=== PATIENT | female | born 1940 | race Caucasian/White ===

== ENCOUNTER 2019-09-09 21:17 | Observation (INO) | payer MEDICARE, SELFPAY ==
[2019-09-09 21:24] VITALS: BP 192/97; PULSE 86; RESP 18; TEMP 36.4; O2SAT 95; BMI 37.8
--- NOTE | 2019-09-09 21:27 | ECG_ITS ---
Measurements Intervals [place] Rate: 84 P: 64 [place]: 310 QRS: -33 QRSD: 86 T: 55 QT: 382 QTc: 452 SINUS RHYTHM WITH FIRST DEGREE AV BLOCK PATTERN CONSISTENT WITH PULMONARY DISEASE INFERIOR MYOCARDIAL INFARCTION , PROBABLY OLD [40+ ms Q WAVE AND/OR ST/T AB ABNORMALITY IN II/aVF] Compared to ECG 06/25/2015 06:24:05 Incomplete right bundle-branch block no longer present Myocardial infarct finding still present Electronically Signed On 09-10-2019 18:02:18 CDT by Jefferson Justin M.D. [email or web address]
--- NOTE | 2019-09-09 21:27 | CTR_ITS ---
PROCEDURE INFORMATION: Exam: CT Head Without Contrast Exam date and time: 09/09/2019 9:46 PM Age: 79 years old Clinical indication: Pain; Dizziness; Headache; Patient HX: High BP; Additional info: Bell/ams TECHNIQUE: Imaging protocol: Computed tomography of the head without contrast. Total DLP: 189 mGy-cm Radiation optimization: All CT scans at this facility use at least one of these dose optimization techniques: automated exposure control; mA and/or kV adjustment per patient size (includes targeted exams where dose is matched to clinical indication); or iterative reconstruction. COMPARISON: No relevant prior studies available. FINDINGS: Brain: Normal. No hemorrhage. Unremarkable white matter. No mass effect. Ventricles: Normal. No ventriculomegaly. Bones/joints: Unremarkable. No acute fracture. Sinuses: Visualized sinuses are unremarkable. No fluid levels. Mastoid air cells: Visualized mastoid air cells are well aerated. Soft tissues: Unremarkable. CT/CT head wo con* [id number] IMPRESSION: No acute intracranial abnormality. Radiation Dose CTDIVOL = (mGy): DLP = 189 (mGy-cm)
--- NOTE | 2019-09-09 21:27 | XR_ITS ---
WS: [id number] CHEST XRAY TECHNIQUE: Portable chest. CLINICAL INFORMATION: cough COMPARISON: June 25, 2015 FINDINGS: Heart: Cardiomegaly. Lungs: Moderate chronic emphysematous changes. No acute pulmonary infiltrates. No focal pneumonia. Bones: Osteopenia. Prior postoperative changes plate and screw fixation left humerus. XR/XR chest 1V portable [id number] IMPRESSION: Cardiomegaly. No acute pulmonary infiltrates.
--- NOTE | 2019-09-09 21:31 | ED_ITS ---
HPI - General Adult General: Chief complaint: Dizziness Stated complaint: HTN Time Seen by Provider: 09/09/19 21:22 History of Present Illness: HPI narrative: Mrs. Gupta is a nice 79-year-old female who comes in complaining of dizziness. She describes it as room spinning dizziness that has resolved. Shortly after this started she checked her blood pressure and found it to be 200/100. EMS was called and she was brought here. She states that she was slightly nauseated with this but denies any chest pain, shortness of breath or other complaints. The patient states that currently her dizziness is gone. She denies any other complaints or concerns at this time. Associated symptoms: Reports headache(s); Deny chest pain, confusion, diaphoresis, dyspnea, malaise, nausea, rash, palpitations, syncope or vomiting Review of Systems General: Reports: other (negative unless marked) Const: Denies: fever, chills, body aches, fatigue, malaise or diaphoresis Eyes: Denies: change in vision or blurry vision ENMT: Denies: throat pain, painful swallowing, hoarseness, ear pain, ear discharge, Change in hearing or nasal discharge Card: Denies: chest pain, palpitations, irregular heart rhythm, syncope, pre- syncope, shortness of breath on exertion or shortness of breath when lying down Resp: Denies: shortness of breath, productive cough, non-productive cough, wheezing, coughing up blood or chest congestion GI: Denies: abdominal pain, nausea, vomiting, vomiting blood, coffee grounds in vomit, diarrhea, constipation, cramping, blood in stool or black tarry stool : Denies: flank pain, painful urination, urinary frequency, urinary urgency, decreased urine ouput, urinary incontinence or blood in urine Musc: Denies: neck pain, back pain, extremity pain, extremity swelling, joint pain, joint swelling, joint warmth or joint stiffness Skin/Breast: Denies: rash, skin tenderness or yellow skin Neuro: Reports: headache, dizziness and vertigo; Denies: numbness in extremities, weakness in extremities, changes in sensation or confusion Endo: Denies: excessive thirst, tired all the time, cold intolerance, excessive sweating, flushing or hot flashes Cain/Lymph: Denies: easy bruising, easy bleeding, petechiae or enlarged lymph nodes All/Imm: Denies: hives, throat swelling, tongue swelling, facial swelling or acute wheezing PFSH ED PFSH: Medical History Diabetes mellitus Dyslipidemia Elbow fracture, left Hyperlipidemia Hypertension Type 2 diabetes mellitus Surgical History H/O lumpectomy H/O: hysterectomy Family History Denies family history of CAD (coronary artery disease) Clotting disorder Chronic kidney disease (CKD) Bleeding disorder Cancer Social History Smoking and tobacco status: never smoked Alcohol intake: never Substance/Drug Use: never Household members: family Housing: House Physical Exam Const: COMMON NORMALS: no apparent distress, oriented x3, no limitations, healthy appearing and well nourished EXAM LIMITATIONS: no altered mental status GENERAL APPEARANCE: cooperative, well kempt and well developed ORIENTATION/CONSCIOUSNESS: Yes awake HENMT: COMMON NORMALS: normocephalic, head/scalp atraumatic, hearing grossly normal bilaterally, external ears normal, EAC's normal, external nose normal and moist oral mucous membranes HEAD & SCALP: normal to inspection, normocephalic and atraumatic FACE & SINUS: normal facial exam and face symmetric NOSE: external nose normal and nares normal EXTERNAL EAR: Yes external ears normal EXTERNAL AUDITORY CANAL: EAC's normal MOUTH: oral and palatal mucosa normal and tongue normal Eye: COMMON NORMALS: PERRL, EOMs intact bilaterally, conjunctivae normal and no scleral icterus GENERAL EYE: normal appearance of both eyes and normal light reflex CONJUNCTIVA: Yes conjunctivae normal SCLERA: sclerae normal CORNEA: Yes corneas normal PUPIL: Yes PERRL DIRECT OPHTHALMOSCOPY: Yes normal light reflex Neck/C-Spine: COMMON NORMALS: full ROM, no lymphadenopathy, supple, no meningeal signs and no JVD GENERAL: Yes normal visual inspection and Yes trachea midline CERVICAL SPINE: Yes cervical ROM normal Chest: COMMONS NORMALS: inspection of chest normal and palpation of chest normal Resp: COMMON NORMALS: normal respiratory effort, no retractions, no use of accessory muscles and clear to auscultation bilaterally EFFORT & INSPECTION: Yes able to speak in complete sentences AUSCULTATION: clear to auscultation bilaterally Cardio: COMMON NORMALS: no JVD, regular rate, regular rhythm, S1 normal heart sound, S2 normal heart sound, no gallops, no clicks, no murmurs and no rub JUGULAR VENOUS DISTENTION: no JVD RATE: regular rate RHYTHM: regular rhythm HEART SOUNDS: S1 normal and S2 normal GI: COMMON NORMALS: soft to palpation, non-tender, no hepatosplenomegaly and no masses INSPECTION: Yes normal to inspection PALPATION: Yes soft and Yes no hepatosplenomegaly : COMMON NORMALS: Yes no CVA tenderness BLADDER/KIDNEY EXAM: Yes no CVA tenderness Back/Pelvis: COMMON NORMALS: no CVA tenderness, thoracic and lumbar spine normal to inspection, no thoracic nor lumbar tenderness and thoraco-lumbar ROM normal Extremity: COMMON NORMALS: normal to inspection, full ROM, normal capillary refill, no joint enlargement, no clubbing, cyanosis or edema and no calf tenderness Neuro: COMMON NORMALS: oriented x3, CN's II-XII intact bilaterally and moves all extremities MENINGEAL SIGNS: Yes no meningeal signs Psych: COMMON NORMALS: mental status grossly normal, thought process normal, cooperative, affect normal, speech normal and activity/motor behavior normal APPEARANCE: Yes well kempt SPEECH: Yes normal speech THOUGHT PROCESS: normal thought process Skin: COMMON NORMALS: no rashes or lesions noted, skin turgor normal, no jaundice, no petechiae and no mottling GENERAL SKIN EXAM: no rashes or lesions noted and turgor normal Course ED course: 21:45 -the patient was able to walk to the bathroom although with some ataxia. She has informed nursing her dizziness is back. Upon further history the patient states that she cannot be certain when her last known well time was sometime between 3 and 4 PM. She noticed the symptoms she believes tonight around 5:30 PM. Patient is outside the window to be a TPA candidate and it is uncertain whether this is vertigo or a cerebellar CVA. I will proceed with a stroke work-up and perform an NIH stroke scale. Vital Signs: Vital signs: Vital Signs Temperature 97.8 F 09/10/19 04:00 Pulse Rate 79 09/10/19 04:00 Respiratory Rate 18 09/10/19 04:00 Blood Pressure 150/76 09/10/19 04:00 Pulse Oximetry 92 09/10/19 04:00 MDM - General Adult MDM Narrative: Medical decision making narrative: Ms. Hope is a nice 79-year-old female who comes in with room spinning dizziness that is been present since sometime around 530. The patient is uncertain of her onset time. Patient's last known well time was between 3 and 4 PM earlier today. If this is a posterior circulation CVA she arrived outside the window. She is feeling gradually better on her own but she was given Antivert we will see if that helps. She has minimal if any nystagmus present on her exam. I reviewed the c ase with Dr. Mcclelland who agrees because she has an NIH of 2 this is posterior circulation she is not a candidate for intervention or CTA of the head and neck. I reviewed the case with Dr. Allison and he agrees to admit the patient for further risk stratification and evaluation. Lab Data: Attestation: I reviewed the patient's lab results. Labs: Lab Results 09/09/19 09/09/19 09/09/19 Range/Units 21:40 21:40 21:40 WBC 7.8 (4.0-10.0) 10^3/ uL RBC 5.13 (4.1-5.3) 10^6/u L Hgb 14.9 (11.5-15.3) g/dL Hct 45.2 (37.0-47.0) % MCV 88.1 (81-99) fL MCH 29.0 (28.0-34.0) pg MCHC 33.0 (30.0-36.0) g/dL RDW 12.3 (12.1-15.1) % Plt Count 207 (130-400) 10^3/c mm MPV 10.3 (7.4-10.4) fL Neut % (Auto) 53.0 % Lymph % (Auto) 24.4 % [place] % (Auto) 6.0 % Eos % (Auto) 15.0 % Baso % (Auto) 0.6 % Neut # (Auto) 4.1 (1.8-7.7) 10^3/u L Lymph # (Auto) 1.9 (0.8-4.8) 10^3/u L [place] # (Auto) 0.5 (0.2-0.9) 10^3/u L Eos # (Auto) 1.2 H (0.0-0.8) 10^3/u L Baso # (Auto) 0.1 (0.0-0.1) 10^3/u L Nucleated RBC % (a uto) 0 % Nucleated RBCs # 0.0 /100WBC PT (10.5-13.3) SECO NDS INR (0.8-1.2) APTT (23.9-36.7) SECO NDS Sodium 137 (136-145) mmol/L Potassium 4.3 (3.5-5.1) mmol/L Chloride 99 (98-107) mmol/L Carbon Dioxide 24 (22-29) mmol/L Anion Gap 18.3 (5-19) BUN 19 (8-23) mg/dL Creatinine 1.0 H (0.5-0.9) mg/dL Glucose 350 H (65-115) mg/dL Calculated Osmolal ity 294 (285-295) mOsm/k g Calcium 9.7 (8.5-10.5) mg/dL Total Bilirubin 0.4 (0.15-1.2) mg/dL AST 19 (0-32) U/L ALT 19 (0-33) U/L Alkaline Phosphata se 64 (35-105) IU/L Troponin T Baselin e 11 H (0-10) ng/mL Total Protein 7.0 (6.6-8.7) g/dL Albumin 4.1 (3.5-5.2) g/dL Globulin 2.9 (1.3-4.6) g/dL Urine Color (Yellow) Urine Appearance (CLEAR) Urine pH (5-7) Ur Specific Gravit y (1.005-1.030) Urine Protein (Negative) Urine Glucose (UA) (Normal) Urine Ketones (Negative) Urine Blood (Negative) Urine Nitrate (Negative) Urine Bilirubin (NEGATIVE) Urine Urobilinogen (Negative) mg/dL Ur Leukocyte Jahaira ase (Negative) Urine RBC (0-2) /hpf Urine WBC (0-5) /hpf Ur Squamous Epith Cells (0-5) Urine Bacteria (NONE) 09/09/19 09/09/19 Range/Units 21:40 21:54 WBC (4.0-10.0) 10^3/ uL RBC (4.1-5.3) 10^6/u L Hgb (11.5-15.3) g/dL Hct (37.0-47.0) % MCV (81-99) fL MCH (28.0-34.0) pg MCHC (30.0-36.0) g/dL RDW (12.1-15.1) % Plt Count (130-400) 10^3/c mm MPV (7.4-10.4) fL Neut % (Auto) % Lymph % (Auto) % [place] % (Auto) % Eos % (Auto) % Baso % (Auto) % Neut # (Auto) (1.8-7.7) 10^3/u L Lymph # (Auto) (0.8-4.8) 10^3/u L [place] # (Auto) (0.2-0.9) 10^3/u L Eos # (Auto) (0.0-0.8) 10^3/u L Baso # (Auto) (0.0-0.1) 10^3/u L Nucleated RBC % (a uto) % Nucleated RBCs # /100WBC PT 12.60 (10.5-13.3) SECO NDS INR 0.91 (0.8-1.2) APTT 26.1 (23.9-36.7) SECO NDS Sodium (136-145) mmol/L Potassium (3.5-5.1) mmol/L Chloride (98-107) mmol/L Carbon Dioxide (22-29) mmol/L Anion Gap (5-19) BUN (8-23) mg/dL Creatinine (0.5-0.9) mg/dL Glucose (65-115) mg/dL Calculated Osmolal ity (285-295) mOsm/k g Calcium (8.5-10.5) mg/dL Total Bilirubin (0.15-1.2) mg/dL AST (0-32) U/L ALT (0-33) U/L Alkaline Phosphata se (35-105) IU/L Troponin T Baselin e (0-10) ng/mL Total Protein (6.6-8.7) g/dL Albumin (3.5-5.2) g/dL Globulin (1.3-4.6) g/dL Urine Color Straw (Yellow) Urine Appearance Clear (CLEAR) Urine pH 7 (5-7) Ur Specific Gravit y 1.005 (1.005-1.030) Urine Protein Neg (Negative) Urine Glucose (UA) 4+ H (Normal) Urine Ketones Negative (Negative) Urine Blood Neg (Negative) Urine Nitrate Negative (Negative) Urine Bilirubin Neg (NEGATIVE) Urine Urobilinogen Norm (Negative) mg/dL Ur Leukocyte Jahaira ase Negative (Negative) Urine RBC None (0-2) /hpf Urine WBC None (0-5) /hpf Ur Squamous Epith Cells Rare (0-5) Urine Bacteria 2+ H (NONE) Imaging Data^: CT Head: Radiologist's impression: [place] [address] CT Scan Report Signed Patient: Caden Gupta Unit #: [id number] : 1940 Age/Sex: 79 / F ADM Date: 09/09/19 Loc: ER Room/Bed: Attending Dr: Ordering Provider/Ordering MD: Marli Luis DO Date of Service: 09/09/19 Procedure(s): CT head wo con* [id number] Accession Number(s): [id number] Report Number: [id number] PROCEDURE INFORMATION: Exam: CT Head Without Contrast Exam date and time: 09/09/2019 9:46 PM Age: 79 years old Clinical indication: Pain; Dizziness; Headache; Patient HX: High BP; Additional info: Bell/ams TECHNIQUE: Imaging protocol: Computed tomography of the head without contrast. Total DLP: 189 mGy-cm Radiation optimization: All CT scans at this facility use at least one of these dose optimization techniques: automated exposure control; mA and/or kV adjustment per patient size (includes targeted exams where dose is matched to clinical indication); or iterative reconstruction. COMPARISON: No relevant prior studies available. FINDINGS: Brain: Normal. No hemorrhage. Unremarkable white matter. No mass effect. Ventricles: Normal. No ventriculomegaly. Bones/joints: Unremarkable. No acute fracture. Sinuses: Visualized sinuses are unremarkable. No fluid levels. Mastoid air cells: Visualized mastoid air cells are well aerated. Soft tissues: Unremarkable. CT/CT head wo con* [id number] IMPRESSION: No acute intracranial abnormality. Radiation Dose CTDIVOL = (mGy): DLP = 189 (mGy-cm) Dictated By: Luis Fernando Ortez MD Signed By: Luis Fernando Ortez MD Signed Date/Time: 09/09/192200 DD/ 99 CXR: My impression: Cardiomegaly, no other acute cardiopulmonary findings. EKG Data^: EKG 1: Attestation: I personally reviewed and interpreted this EKG as follows: EKG interpretation date: 09/09/19 EKG interpretation time: 22:36 Interpretation: Normal sinus rhythm at 84 beats a minute, first-degree AV block, anterior Q waves, left axis deviation, left anterior fascicular block. Computer generated interpretation: Head CT 09/09/19 21:27 IMPRESSION: No acute intracranial abnormality. Radiation Dose CTDIVOL = (mGy): DLP = 189 (mGy-cm) Discharge Plan Discharge Patient Disposition: Placed in Observation Admit Provider: Bethany Allison Clinical Impression: Cerebrovascular accident Qualifiers: CVA mechanism: unspecified Qualified Code(s): I63.9 - Cerebral infarction, unsp ecified Benign paroxysmal positional vertigo Qualifiers: Laterality: unspecified laterality Qualified Code(s): H81.10 - Benign paroxysmal vertigo, unspecified ear Condition: Stable Referrals: Luis Antonio Ko MD [Family Provider] - RiveraPark FNP [Primary Care Provider] - Discharge Date/Time: 09/09/19 23:53 Coding Level of Care Code ED Control Panel Operator Crude Unit for Chg Fwd Exam Comprehensive NIH stroke score NIHSS Level Of Consciousness - 1a: 0 Level Of Consciousness Questions - 1b: Both Correct Level Of Consciousness Commands - 1c: Both Correct Best Gaze - 2: Normal Visual Smith - 3: No Visual Loss Facial Palsy - 4: Normal Motor Arm Right - 5: No Drift Motor Arm Left - 5: No Drift Motor Leg Right - 6: No Drift Motor Leg Left - 6: Drift Limb Ataxia - 7: Absent Sensory - 8: Mild To Moderate Loss Best Language - 9: No Aphasia Dysarthia - 10: Normal Extinction And Inattention - 11: 0 Score Total Score: 2
[2019-09-09 21:47] LABS: Basophils # 0.1 10^3/uL (0.0-0.1); Basophils % 0.6 %; Eosinophils # 1.2 10^3/uL (0.0-0.8); Hematocrit 45.2 % (37.0-47.0); Hemoglobin 14.9 g/dL (11.5-15.3); Lymphocytes # 1.9 10^3/uL (0.8-4.8); Lymphocytes % 24.4 %; Mean Corpuscular Volume 88.1 fL (81-99); Mean Platelet Volume 10.3 fL (7.4-10.4); Monocytes # 0.5 10^3/uL (0.2-0.9); Neutrophils # 4.1 10^3/uL (1.8-7.7); Nucleated Red Blood Cells % 0 %; Platelet Count 207 10^3/cmm (130-400); Red Blood Count 5.13 10^6/uL (4.1-5.3); Red Cell Distribution Width 12.3 % (12.1-15.1); White Blood Count 7.8 10^3/uL (4.0-10.0)
[2019-09-09 22:04] LABS: Alanine Aminotransferase 19 U/L (0-33); Albumin Level 4.1 g/dL (3.5-5.2); Alkaline Phosphatase 64 IU/L (35-105); Anion Gap 18.3 (5-19); Aspartate Amino Transferase 19 U/L (0-32); Blood Urea Nitrogen 19 mg/dL (8-23); Calcium 9.7 mg/dL (8.5-10.5); Carbon Dioxide 24 mmol/L (22-29); Chloride 99 mmol/L (98-107); Globulin 2.9 g/dL (1.3-4.6); Glucose 350 mg/dL (65-115); Osmolality Calculated 294 mOsm/kg (285-295); Potassium 4.3 mmol/L (3.5-5.1); Sodium 137 mmol/L (136-145); Total Bilirubin 0.4 mg/dL (0.15-1.2)
[2019-09-09 22:06] LABS: Troponin(5th) Baseline 11 ng/mL (0-10)
[2019-09-09 22:08] LABS: INR 0.91 (0.8-1.2); Partial Thromboplastin Time 26.1 SECONDS (23.9-36.7)
[2019-09-09] MEDS: meclizine 25 mg tablet PO (22:14)
[2019-09-09] MEDS: labetalol 5 mg/mL SDV 20mL 10 MG IVP (22:15)
[2019-09-09 22:16] LABS: Bilirubin Urine Neg (NEGATIVE); Blood Urine Neg (Negative); Glucose Urine UA 4+ (Normal); Ketones Urine Negative (Negative); Nitrate Urine Negative (Negative); Protein Urine Neg (Negative); Specific Gravity, Urine 1.005 (1.005-1.030); Urine Appearance Clear (CLEAR); Urine Color Straw (Yellow); Urobilinogen Urine Norm (Negative); pH Urine 7 (5-7)
[2019-09-09 22:17] LABS: Bacteria Urine 2+; Leukocyte Esterase Urine Negative (Negative); Squamous Epithelial Cell Urine RARE (0-5)
[2019-09-09 22:18] LABS: Add Urine Culture? No
[2019-09-09] MEDS: aspirin 325 mg Tablet PO (22:51)
--- NOTE | 2019-09-09 23:24 | P.HP_ITS ---
Providers/Chief Complaint Primary Care Provider: TWIN Ramirez Chief Complaint: HTN History of Present Illness Caden Gupta is a 79 year old female who carries diagnosis of type 2 diabetes, hypertension came with chief complaint of feeling dizziness. Patient is stating that her symptoms started today around 5 PM when her daughter got dinner tray for her, as soon as she changed her position she started feeling dizzy, she was describing this dizziness as room was spinning which was making her uncomfortable, she did not experience vomiting but she was nauseous. She did not notice any fever, shortness of breath, chest pain, palpitations, numbness or weakness of upper or lower extremities, no facial droop was noticed, no falls or loss of consciousness. She has never experienced these kind of symptoms before. Any kind of head position change was making her symptoms worse. EMS was called, diagnostics in ER revealed normal CT head, code stroke was called NIH 2 for numbness in her extremity but patient is stating that she has neuropathy for which she is taking gabapentin, no need of TPA. She was hypertensive systolic blood pressure 190, patient is endorsing taking her medications today, hyperglycemia she is on oral anti-hyperglycemics. When I went to examine the patient, she was hypertensive systolic pressure 170, she was sitting in her bed, I did Alejandro-Hallpike maneuver which was positive on both sides, prominent horizontal nystagmus on left side, I have canceled CTA head and neck that was ordered, added meclizine, started her home regimen for antihypertensive At the time of my evaluation NIH score is 0 Review of Systems Const: Denies: fever, chills or body aches Eyes: Reports: other (Nystagmus positive) ENMT: Denies: throat pain or uvular edema Card: Denies: chest pain or palpitations Resp: Denies: shortness of breath or non-productive cough GI: Denies: abdominal pain, nausea or vomiting : Denies: flank pain Musc: Denies: neck pain or back pain Skin/Breast: Denies: rash or itching Neuro: Denies: headache or numbness in extremities Psych: Denies: anxiety or depression Endo: Denies: excessive urination Cain/Lymph: Denies: easy bruising All/Imm: Denies: hives or throat swelling Medications/Allergies Allergies Allergy/AdvReac Type Severity Reaction Status Date / Time No Known Allergies Allergy Verified 04/07/20 22:38 PFSH Acute PFSH: Medical History Diabetes mellitus Dyslipidemia Elbow fracture, left Hyperlipidemia Hypertension Type 2 diabetes mellitus Surgical History H/O lumpectomy H/O: hysterectomy Family History Denies family history of CAD (coronary artery disease) Clotting disorder Chronic kidney disease (CKD) Bleeding disorder Cancer Social History Smoking and tobacco status: never smoked Alcohol intake: never Substance/Drug Use: never Household members: family Housing: House Vitals/I&O/Wt Last Vital Signs Temp 97.6 F 09/09/19 21:24 Pulse 86 09/09/19 21:24 Resp 18 09/09/19 21:24 BP 192/97 09/09/19 21:24 Pulse Ox 95 09/09/19 21:24 Weight last 48 hrs Weight 99.79 kg Physical Exam Narrative: EXAM NARRATIVE: Very pleasant female Sitting in her bed NIH score 0 Alejandro-Hallpike maneuver positive bilaterally however more prominent on left with positive nystagmus Neurologically nonfocal exam S1, S2 no signs of heart failure Abdomen soft, distended, with obesity, bowel sounds sluggish Lungs are clear to auscultation EOMI, PERRLA Appropriate mood and affect No signs of ischemia gangrene ulcer of lower extremity Data : 09/09/19 21:40 09/09/19 21:40 A&P Assessment and plan (1) Benign paroxysmal positional vertigo: Status: Acute Qualifiers: Laterality: unspecified laterality Qualified Code(s): H81.10 - Benign paroxysmal vertigo, unspecified ear (2) Diabetes mellitus: Status: Acute (3) Hypertensive urgency: Status: Acute (4) Obesity: Status: Acute Additional A&P Information Dizziness secondary to BPPV Positive Alejandro-Hallpike maneuver, will give meclizine, physical therapy in the morning, no recent flulike symptoms or viral prodrome, less likely to be vestibulitis induced vertigo CT head negative, NIH score 0, EKG is pending, no chest pain troponin not significantly high Low risk for TIA or CVA Hypertensive urgency: I will resume her home regimen while holding hydrochlorothiazide as she is getting fluids Type 2 diabetes poorly controlled: Current blood sugar 350 We will check A1c level, moderate sliding scale Consistent carb diet Fluids for hyperglycemia Full code Consistent carb diet DVT prophylaxis: Lovenox Attestations Medical Necessity Statement*: Anticipating discharge in less than 48 hours, her dizziness is most likely due to BPPV, needs evaluation with carotid Doppler if negative she might benefit from vestibular rehab Time Spent in Patient Care: 40 Coding Level of Care Code Acute Flatwork Finisher for Chg Fwd Diagnoses Benign paroxysmal positional vertigo H81.10 Laterality: unspecified laterality Diabetes mellitus E11.9 Hypertensive urgency I16.0 Obesity E66.9
--- NOTE | 2019-09-09 23:27 | ECG_ITS ---
Measurements Intervals [place] Rate: 85 P: 60 [place]: 327 QRS: -35 QRSD: 99 T: 62 QT: 387 QTc: 462 SINUS RHYTHM WITH FIRST DEGREE AV BLOCK MARKED LEFT AXIS DEVIATION [QRS AXIS < -30] PATTERN CONSISTENT WITH PULMONARY DISEASE INFERIOR MYOCARDIAL INFARCTION [40+ ms Q WAVE AND/OR ST/T ABNORMALITY IN II/aVF], PROBABLY OLD Compared to ECG 06/25/2015 06:24:05 Left-axis deviation now present Incomplete right bundle-branch block no longer present Myocardial infarct finding still present Electronically Signed On 09-10-2019 18:11:04 CDT by Jefferson Justin M.D. [id number]
[2019-09-09 23:41] LABS: Troponin 5 2HR 11.79 ng/mL (0-10); Troponin 5 2HR Delta 0.79 ABS# (0-10)
[2019-09-09 23:51] VITALS: BP 165/84; PULSE 78; RESP 18; O2SAT 96
[2019-09-10 00:10] VITALS: BP 162/83; PULSE 81; RESP 18; TEMP 36.7; O2SAT 96
--- NOTE | 2019-09-10 00:10 | USCV_ITS ---
Caden Gupta Age: 79 Gender: F : 1940 Exam Date: 09/10/2019 06:44 Ordering Phys: Bethany Allison MD Technologist: Joann Bowser [place] [facility] [place] Risk Factors: Unknown Previous Vascular Surgery: None Right Brachial BP: / Left Brachial BP: / Right Left Velocity (cm/s) Spectral Plaque Velocity (cm/s) Spectral Plaque Syst/Diast Broadening Syst/Diast Broadening 108.10/18.70 Prox CCA 130.80/ 14.50 63.90/ 15.40 Mid CCA 56.20 / 9.90 57.50/ 11.70 Distal CCA 59.50 / 11.90 67.60/ 18.60 Prox ICA 50.30 / 16.60 Hetro 87.80/ 22.50 Mid ICA 48.90 / 14.40 80.80/ 23.30 Distal ICA 43.70 / 11.60 74.60 ECA 73.40 1.37 ICA/CCA 0.90 Antegrade Vertebral Antegrade 34.20/ 6.20 cm/s 35.70/ 7.10 cm/s Tri Subclavian Tri 111.8 163.4 0 0 CONCLUSIONS Right ICA stenosis <50%. Mild atheromatous plaque right carotid bulb/ICA. Left ICA stenosis <50%. Mild atheromatous plaque left carotid bulb/ICA. Normal antegrade Doppler flow noted in the right vertebral artery. Normal antegrade Doppler flow noted in the left vertebral artery. Bebeto Albrecht MD (Electronically Signed) Final Date: 11 September 2019 16:11 S
[2019-09-10] MEDS: lisinopril 10 mg Tablet PO ×2 (01:06→08:55)
[2019-09-10] MEDS: sodium chloride 0.9% 1,000 ML 30 ML IV (01:06)
--- NOTE | 2019-09-10 03:27 | ECG_ITS ---
Measurements Intervals [place] Rate: 81 P: 50 [place]: 319 QRS: -35 QRSD: 96 T: 60 QT: 398 QTc: 463 SINUS RHYTHM WITH FIRST DEGREE AV BLOCK INFERIOR MYOCARDIAL INFARCTION [40+ ms Q WAVE AND/OR ST/T ABNORMALITY IN II/aVF], PROBABLY OLD Compared to ECG 06/25/2015 06:24:05 Incomplete right bundle-branch block no longer present Myocardial infarct finding still present Electronically Signed On 09-10-2019 18:10:44 CDT by Jefferson Justin M.D. [email or web address]
[2019-09-10 04:00] VITALS: BP 150/76; PULSE 79; RESP 18; TEMP 36.6; O2SAT 92
[2019-09-10 04:10] LABS: Estmated Average Glucose 217; Hemoglobin A1C 9.2 % (4.0-6.0)
[2019-09-10 04:53] LABS: Basophils % 0.5 %; Eosinophils # 0.8 10^3/uL (0.0-0.8); Eosinophils % 11.6 %; Hematocrit 38.9 % (37.0-47.0); Hemoglobin 13.1 g/dL (11.5-15.3); Lymphocytes # 1.9 10^3/uL (0.8-4.8); Lymphocytes % 29.5 %; Mean Corpuscular HGB Conc 33.7 g/dL (30.0-36.0); Mean Corpuscular Hemoglobin 29.8 pg (28.0-34.0); Mean Corpuscular Volume 88.4 fL (81-99); Mean Platelet Volume 10.3 fL (7.4-10.4); Monocytes # 0.5 10^3/uL (0.2-0.9); Monocytes % 7.6 %; Neutrophils # 3.2 10^3/uL (1.8-7.7); Neutrophils % 49.9 %; Nucleated Red Blood Cells % 0 %; Platelet Count 180 10^3/cmm (130-400); Red Cell Distribution Width 12.3 % (12.1-15.1); White Blood Count 6.4 10^3/uL (4.0-10.0)
[2019-09-10 05:01] LABS: Anion Gap 17.4 (5-19); Blood Urea Nitrogen 19 mg/dL (8-23); Calcium 8.8 mg/dL (8.5-10.5); Carbon Dioxide 23 mmol/L (22-29); Chloride 100 mmol/L (98-107); Glucose 359 mg/dL (65-115); Osmolality Calculated 293 mOsm/kg (285-295); Potassium 4.4 mmol/L (3.5-5.1); Sodium 136 mmol/L (136-145)
[2019-09-10 06:34] LABS: Glucose Point of Care 281 mg/dL (70-110)
[2019-09-10 08:00] VITALS: BP 108/99; PULSE 79; RESP 17; TEMP 36.4; O2SAT 94
--- NOTE | 2019-09-10 08:20 | P.DS_ITS ---
Discharge Providers Date of Admission: 09/09/19 23:09 Date of Discharge: September 10, 2019 Attending Provider at Admission: Bethany Allison MD Attending Provider at Discharge: Zev Fields MD Primary Care Provider: TWIN Ramirez Diagnoses at Discharge Discharge Diagnosis (1) Benign paroxysmal positional vertigo: Status: Acute Qualifiers: Laterality: unspecified laterality Qualified Code(s): H81.10 - Benign paroxysmal vertigo, unspecified ear (2) Diabetes mellitus: Status: Acute (3) Hypertensive urgency: Status: Acute (4) Obesity: Status: Acute (5) Chronic constipation: Status: Acute Reason for Visit Reason for Visit: Reason For Visit: HTN Hospital Course Discharge Summary: Patient presented with lightheadedness and dizziness described as room spinning shortly after she ate. Her daughter is an RN and checked her blood pressure which was in 200s over 100s. She gave her 1 tablet of clonidine which she gives her rarely when she gets episodes of hypertension. She was brought to ER and on examination she felt to have benign positional vertigo. She was given meclizine and hospitalized for further monitoring and treatment and this morning patient reports feeling back to her normal baseline and wants to go home. Cerebrovascular accident felt unlikely. This morning patient shows no evidence of focal neurological findings. She has normal shoulder shrug and has no pronator drift. She has no evidence of ataxia of lower and upper extremities on [id number] and heel over yancey test. She has good peripheral vision bilaterally. She is eating breakfast this morning without any difficulty. This morning patient denies any shortness of breath or chest pain. She denies headache or nausea. I have discussed with the patient's daughter Herminia over the phone. Patient at times takes tramadol couple times a week and with severe pain mostly in her lower back and knees she takes hydrocodone maybe twice a month. She takes Tylenol PM every night. She uses cane to ambulate. She reports being chronically constipated but denies abdominal pain. Somewhere at the end of last year she was treated for UTI. She currently denies any dysuria but reports noticing lately frequent urinations. Reports waking up 6 7 times a night to urinate lately. Her urine shows 2+ bacteria and 4+ glucose but otherwise no WBCs. She had carotid artery ultrasound performed with report currently pending. Reports that she could not tolerate metformin by itself previously due to severe diarrhea. We will discontinue hydrochlorothiazide as patient is at risk for dehydration given glycosuria. Will start patient on 10 units of Lantus and request diabetic education prior to DC. We will continue rest of her hypoglycemic medications. We will add amlodipine for better blood pressure control and patient was told to keep blood pressure, heart rate and blood sugar log 3 times daily to present to primary care physician next visit for medication adjustment. Patient was told to drink plenty of fluids unless she develops lower extremity swelling and shortness of breath. This morning patient denies any shortness of breath or chest pain. Denies abdominal pain. Senna/Colace will be prescribed for chronic constipation and lactulose will be added to use as needed. Physical Exam Const: COMMON NORMALS: no apparent distress and oriented x3 Resp: COMMON NORMALS: normal respiratory effort and clear to auscultation bilaterally AUSCULTATION: clear to auscultation bilaterally Cardio: COMMON NORMALS: regular rate, regular rhythm and S2 normal heart sound RATE: regular rate RHYTHM: regular rhythm HEART SOUNDS: S2 normal OTHER: No lower extremity edema GI: COMMON NORMALS: normal to inspection, nondistended, normoactive bowel sounds, soft to palpation and non-tender PALPATION: Yes soft Neuro: COMMON NORMALS: oriented x3 and no focal motor deficits Discharge Data Data Completed and Pending: Completed Studies During Hospitalization Category Date Time Status CT head wo con* [id number] Urgent Cat Scan 09/09/19 21:27 Completed Pending at discharge Category Date Time Status XR chest 1V tamia ble [id number] Stat Exams 09/09/19 21:27 Taken CV carotid duplex BI* [id number] Routine Ultrasound 09/10/19 00:10 Taken Labs from last 24 hours 09/10/19 09/10/19 09/10/19 06:25 04:16 04:16 WBC 6.4 RBC 4.40 Hgb 13.1 Hct 38.9 MCV 88.4 MCH 29.8 MCHC 33.7 RDW 12.3 Plt Count 180 MPV 10.3 Neut % (Auto) 49.9 Lymph % (Auto) 29.5 [place] % (Auto) 7.6 Eos % (Auto) 11.6 Baso % (Auto) 0.5 Neut # (Auto) 3.2 Lymph # (Auto) 1.9 [place] # (Auto) 0.5 Eos # (Auto) 0.8 Baso # (Auto) 0.0 Nucleated RBC % (a uto) 0 Nucleated RBCs # 0.0 PT INR APTT Sodium 136 Potassium 4.4 Chloride 100 Carbon Dioxide 23 Anion Gap 17.4 BUN 19 Creatinine 1.0 H Glucose 359 H POC Glucose 281 Estimat Average Gl ucose Hemoglobin A1c Calculated Osmolal ity 293 Calcium 8.8 Total Bilirubin AST ALT Alkaline Phosphata se Troponin T Baselin e Troponin T 120 Min [place] Troponin T Total Protein Albumin Globulin Urine Color Urine Appearance Urine pH Ur Specific Gravit y Urine Protein Urine Glucose (UA) Urine Ketones Urine Blood Urine Nitrate Urine Bilirubin Urine Urobilinogen Ur Leukocyte Jahaira ase Urine RBC Urine WBC Ur Squamous Epith Cells Urine Bacteria 09/10/19 09/09/19 09/09/19 00:13 23:15 21:54 WBC RBC Hgb Hct MCV MCH MCHC RDW Plt Count MPV Neut % (Auto) Lymph % (Auto) [place] % (Auto) Eos % (Auto) Baso % (Auto) Neut # (Auto) Lymph # (Auto) [place] # (Auto) Eos # (Auto) Baso # (Auto) Nucleated RBC % (a uto) Nucleated RBCs # PT INR APTT Sodium Potassium Chloride Carbon Dioxide Anion Gap BUN Creatinine Glucose POC Glucose Estimat Average Gl ucose 217 Hemoglobin A1c 9.2 H Calculated Osmolal ity Calcium Total Bilirubin AST ALT Alkaline Phosphata se Troponin T Baselin e Troponin T 120 Min [place] 11.79 [place] Delta Troponin T 0.79 Total Protein Albumin Globulin Urine Color Straw Urine Appearance Clear Urine pH 7 Ur Specific Gravit y 1.005 Urine Protein Neg Urine Glucose (UA) 4+ H Urine Ketones Negative Urine Blood Neg Urine Nitrate Negative Urine Bilirubin Neg Urine Urobilinogen Norm Ur Leukocyte Jahaira ase Negative Urine RBC None Urine WBC None Ur Squamous Epith Cells Rare Urine Bacteria 2+ H 09/09/19 09/09/19 09/09/19 21:40 21:40 21:40 WBC RBC Hgb Hct MCV MCH MCHC RDW Plt Count MPV Neut % (Auto) Lymph % (Auto) [place] % (Auto) Eos % (Auto) Baso % (Auto) Neut # (Auto) Lymph # (Auto) [place] # (Auto) Eos # (Auto) Baso # (Auto) Nucleated RBC % (a uto) Nucleated RBCs # PT 12.60 INR 0.91 APTT 26.1 Sodium 137 Potassium 4.3 Chloride 99 Carbon Dioxide 24 Anion Gap 18.3 BUN 19 Creatinine 1.0 H Glucose 350 H POC Glucose Estimat Average Gl ucose Hemoglobin A1c Calculated Osmolal ity 294 Calcium 9.7 Total Bilirubin 0.4 AST 19 ALT 19 Alkaline Phosphata se 64 Troponin T Baselin e 11 H Troponin T 120 Min [place] Troponin T Total Protein 7.0 Albumin 4.1 Globulin 2.9 Urine Color Urine Appearance Urine pH Ur Specific Gravit y Urine Protein Urine Glucose (UA) Urine Ketones Urine Blood Urine Nitrate Urine Bilirubin Urine Urobilinogen Ur Leukocyte Jahaira ase Urine RBC Urine WBC Ur Squamous Epith Cells Urine Bacteria 09/09/19 21:40 WBC 7.8 RBC 5.13 Hgb 14.9 Hct 45.2 MCV 88.1 MCH 29.0 MCHC 33.0 RDW 12.3 Plt Count 207 MPV 10.3 Neut % (Auto) 53.0 Lymph % (Auto) 24.4 [place] % (Auto) 6.0 Eos % (Auto) 15.0 Baso % (Auto) 0.6 Neut # (Auto) 4.1 Lymph # (Auto) 1.9 [place] # (Auto) 0.5 Eos # (Auto) 1.2 H Baso # (Auto) 0.1 Nucleated RBC % (a uto) 0 Nucleated RBCs # 0.0 PT INR APTT Sodium Potassium Chloride Carbon Dioxide Anion Gap BUN Creatinine Glucose POC Glucose Estimat Average Gl ucose Hemoglobin A1c Calculated Osmolal ity Calcium Total Bilirubin AST ALT Alkaline Phosphata se Troponin T Baselin e Troponin T 120 Min [place] Troponin T Total Protein Albumin Globulin Urine Color Urine Appearance Urine pH Ur Specific Gravit y Urine Protein Urine Glucose (UA) Urine Ketones Urine Blood Urine Nitrate Urine Bilirubin Urine Urobilinogen Ur Leukocyte Jahaira ase Urine RBC Urine WBC Ur Squamous Epith Cells Urine Bacteria Vitals: Last Vital Signs Temp 97.8 F 09/10/19 04:00 Pulse 79 09/10/19 04:00 Resp 18 09/10/19 04:00 BP 150/76 09/10/19 04:00 Pulse Ox 92 09/10/19 04:00 Discharge Plan Discharge Patient Disposition: Home, Self-Care Condition: Stable Prescriptions: New Lantus Solostar U-100 Insulin 100 unit/mL (3 mL) insulin pen 10 unit SUBCUT DAILY Qty: 15 RF: 0 lactulose 10 gram/15 mL solution 10 gm PO DAILY PRN (Reason: constipation) Qty: 473 RF: 0 sennosides-docusate sodium [Senna-S] 8.6-50 mg tablet 1 tab-cap PO BID Qty: 60 RF: 0 amlodipine 5 mg tablet 5 mg PO DAILY Qty: 30 RF: 0 atorvastatin 10 mg tablet 10 mg PO DAILY Qty: 30 RF: 0 Continued glipizide 10 mg Tablet 10 mg PO TID RF: 0 Janumet 50-500 mg Tablet 1 tab PO BID RF: 0 lisinopril 20 mg Tablet 20 mg PO BID RF: 0 Aspirin Low Dose 81 mg Tablet,Delayed Release (Dr/Ec) 81 mg PO DAILY RF: 0 levothyroxine 50 mcg Tablet 50 mcg PO DAILY RF: 0 pantoprazole 40 mg Tablet,Delayed Release (Dr/Ec) 40 mg PO DAILY RF: 0 metoprolol tartrate 50 mg Tablet 50 mg PO BID RF: 0 gabapentin 100 mg Capsule 100 mg PO DAILY RF: 0 Vitamin D2 1,250 mcg (50,000 unit) Capsule 1,250 mcg PO DAILY RF: 0 Tylenol PM Extra Strength 25-500 mg Tablet 1 tab PO Q6H PRN (Reason: Pain) RF: 0 Changed tramadol 50 mg Tablet 50 - 100 mg PO DAILY PRN (Reason: Severe Pain (Scale Score 7-10)) Qty: 0 RF: 0 Discontinued hydrochlorothiazide 12.5 mg Tablet 12.5 mg PO DAILY RF: 0 Discharge Orders: Discharge Order (Routine); Ordered 09/10/19 Ordered By: eZv Fields Referrals: Luis Antonio Ko MD [Family Provider] - 4-7 days Rivera,TWIN Nick [Primary Care Provider] - None Discharge Diet: Diabetic Discharge Activity: Increase activity as tolerated Activity Restrictions/Additional Instructions: Please call your doctor or present to emergency department if your condition worsens or you develop diarrhea, lightheadedness, fatigue or see blood in your stool or black stool. Please keep blood sugar, blood pressure and heart rate log 3 times daily to present to primary care physician for medication adjustment. Please immediately check your blood sugar if you develop diaphoresis, nausea, li ghtheadedness, chest pain or shortness of breath as he may be at risk for low blood sugar. Discharge Attestations Time Spent in Discharge Care*: greater than 30 min Quality Metrics Clinical Quality Measures During this hospital stay, did patient experience: None Coding Level of Care Code Acute Director Client Services for Chg Fwd Exam Detailed Diagnoses Benign paroxysmal positional vertigo H81.10 Laterality: unspecified laterality Diabetes mellitus E11.9 Hypertensive urgency I16.0 Obesity E66.9 Chronic constipation K59.09
[2019-09-10] MEDS: pantoprazole DR 40 mg Tablet 20 MG PO (08:54)
[2019-09-10] MEDS: metoprolol tartrate 25 mg Tablet PO (08:55)
[2019-09-10] MEDS: aspirin 81 mg EC Tablet PO (08:55)
[2019-09-10] MEDS: gabapentin 100 mg Capsule PO (08:55)
[2019-09-10] MEDS: enoxaparin 40 mg/0.4 mL Syringe SUBCUT (08:56)
[2019-09-10] MEDS: levothyroxine 50 mcg Tablet PO (08:56)
[2019-09-10 10:11] VITALS: BP 108/99; PULSE 79; RESP 17; TEMP 36.4; O2SAT 94
--- NOTE | 2019-09-10 10:22 | PC.CHAP ---
Pastoral Care Encounter/Spiritual Assessment Type of Contact [] Declined rn oncology research visit [] Patient/Family/Request visit [] Outpatient visit [] Follow-up visit [] Physician referral [] Code/Alert [x] Routine visit [] Staff referral [] Actively dying [] Patient sleeping [] Family support [] [] Out of room [] Palliative care [] [] Receiving care in room [] Pre-surgical visit [] Trauma [] Long length of stay [] ICU visit [] Other: Relational/Emotional Strength [] Patient feels connected with others/family/visitors/staff [] Distress [] Loneliness/isolation [] Abandonment Spirituality of Patient [] Person of Winnie [] Attends Adventist of their Winnie [] Believes in Prayer [] Reads Bible or Caodaism materials [] There are Spiritual issues to be addressed Business Reporter Interventions [x] Prayer [] Active listening [] Non-anxious presence [] Spiritual/emotional support [] Crisis/trauma care [] Spiritual counseling [] Bereavement support [] Provided bereavement packet [] Provided Bible/devotional materials [] Provided toy/stuffed animal, coloring book to patient or family member [] Provided Communion [] Anointing/[place] [] Salvation [x] Completed spiritual assessment [] Other: Impact on Illness or Injury [] Angry [] Fearful [] Anxious [] Often cries [] Exhaustion [] Unable to work [] Unable to attend amish [] Unable to walk/stand [] Unable to read [] Unable to drive [] Unable to eat/drink [] Unable to sleep [] Unable to be with family [] Patient intubated [] Other: Summary Patient resting well. Time spent with patient 10 min
[2019-09-10 10:43] LABS: Glucose Point of Care 297 mg/dL (70-110)
[2019-09-10 12:57] VITALS: BP 108/99; PULSE 79; RESP 17; TEMP 36.4; O2SAT 94
== END 2019-09-10 11:50 | disposition home or self-care (01) ==
LOC: ER 22:58 → MEDSURG 23:47
PROVIDERS: Admitting Provider Internal Medicine; Emergency Provider Emergency Medicine; Family Provider Family Medicine; PCP Nurse Practitioner Family; Visit Provider Internal Medicine
DX: H81.10 Benign paroxysmal vertigo, unspecified ear (principal); E11.9 Type 2 diabetes mellitus without complications; I16.0 Hypertensive urgency; E66.9 Obesity, unspecified; Z68.37 Body mass index [BMI] 37.0-37.9, adult; K59.09 Other constipation; I44.0 Atrioventricular block, first degree; I65.23 Occlusion and stenosis of bilateral carotid arteries
CPT/HCPCS: 12345; 36415; 36416; 70450; 71045; 80048; 80053; 81001; 82962; 83036; 84484; 85025; 85610; 85730; 93005; 93880; 96372; 96374; 96375; 97161; 99282; 99285; G0378; J1650; J1815; J3490; J7030; J8597

== ENCOUNTER 2021-05-15 14:43 | Inpatient (IN) | payer MEDICARE, SELFPAY ==
--- NOTE | 2021-05-15 14:46 | CTR_ITS ---
PROCEDURE INFORMATION: Exam: CT Head Without Contrast Exam date and time: 05/15/2021 2:46 PM Age: 80 years old Clinical indication: Altered mental status/memory loss; Additional info: Eval brain bleed TECHNIQUE: Imaging protocol: Computed tomography of the head without contrast. Radiation optimization: All CT scans at this facility use at least one of these dose optimization techniques: automated exposure control; mA and/or kV adjustment per patient size (includes targeted exams where dose is matched to clinical indication); or iterative reconstruction. COMPARISON: CT head wo con* [id number] 09/09/2019 9:48 PM RADIATION DOSE METRICS: Total DLP (mGy-cm): 1053.94 FINDINGS: Brain: No hemorrhage. Moderate diffuse cerebral atrophy. Unremarkable white matter. No mass effect. Cerebral ventricles: No ventriculomegaly. Paranasal sinuses: Visualized sinuses are unremarkable. No fluid levels. Mastoid air cells: Visualized mastoid air cells are well aerated. Bones/joints: Unremarkable. No acute fracture. Soft tissues: Unremarkable. CT/CT head wo con* [id number] IMPRESSION: No acute intracranial abnormality.
--- NOTE | 2021-05-15 14:59 | ED_ITS ---
HPI - General Adult General: Chief complaint: Altered Mental Status Stated complaint: AMS Time Seen by Provider: 05/15/21 14:44 History of Present Illness: HPI narrative: Patient is a 80-year-old female with a history of dementia, currently DNR, history of vertigo, currently on IV doxycycline to the right arm PICC for UTI presenting to the emergency room from [facility] for concerns of altered mental status x1 day. Patient was found today by daughter to be extremely agitated and complaining of pain. MS was alerted patient was transferred to the emergency room for evaluation. In route, patient had vital signs within normal limit. Fingerstick of 118. Baseline, per EMS, patient has been progressively getting more altered in the last few months. Patient has a R picc line placed on 05/09 for supposed UTI. Onset:1 day ago Duration:1 day Location:[facility] Severity:moderate Review of Systems Narrative: ROS limited by cognitive status PFSH ED PFSH: Medical History (Updated 05/15/21 @ 17:02 by Krista Pradhan MD) Chronic constipation Diabetes mellitus Dyslipidemia Elbow fracture, left Hyperlipidemia Hypertension Type 2 diabetes mellitus Surgical History H/O lumpectomy H/O: hysterectomy Family History Denies family history of CAD (coronary artery disease) Clotting disorder Chronic kidney disease (CKD) Bleeding disorder Cancer Social History Smoking and tobacco status: never smoked Alcohol intake: never Household members: family Housing: House Physical Exam Narrative: EXAM NARRATIVE: Head: Atraumatic Eyes: PERRL, conjunctiva without injection ENT: Mucous membrane Dry NECK: Supple, ROM intact LUNGS: LCTAB, no crackles/rhonchi CV: RRR ABDOMEN: No focal TTP. NO guarding rebound, guarding, rigidity. No CVA tenderness to percussion. Neg Martinez/Neg McBurney's point tenderness, no suprabupic tenderness to palpation. EXTREMITY: Normal ROM, +R AC picc site dry/clean/intact SKIN: No rash or erythema NEURO: Awake and alert, no focal motor deficits PSYCH: Normal mood and affect Course Vital Signs: Vital signs: Vital Signs Pulse Rate 50 L 05/15/21 15:11 Respiratory Rate 20 H 05/15/21 15:11 Blood Pressure 168/54 05/15/21 15:11 Pulse Oximetry 92 05/15/21 15:11 MDM - General Adult MDM Narrative: Medical decision making narrative: Pt is a 80-year-old female presents emergency room with concerns for altered renal status x1 day in setting of mention. On exam, patient is afebrile rectal temperature. Rest exam negative for any acute findings. EKG is nonischemic. Troponin is noted to be 31 baseline of 10. XR chest negative for acute findings. CT brain negative. UA is likely UTI. S/p ceftraixone. Will be admitted to hospital for further evaluation of AMS. Disposition: Admission Lab Data: Labs: Lab Results 05/15/21 05/15/21 05/15/21 16:11 16:11 16:11 WBC 7.0 10^3/uL 10^3/ uL (4.0-10.0) RBC 4.79 10^6/uL 10^6 /uL (4.1-5.3) Hgb 13.3 g/dL g/dL (11.5-15.3) Hct 41.6 % % (37.0-47.0) MCV 86.8 fl fl (81-99) MCH 27.8 pg L pg (28.0-34.0) MCHC 32.0 g/dL g/dL (30.0-36.0) RDW 14.4 % % (12.1-15.1) Plt Count 300 10^3/cmm 10^3 /cmm (130-400) MPV 10.3 fL fL (7.4-10.4) Neut % (Auto) 54.2 % % Lymph % (Auto) 33.8 % % [place] % (Auto) 9.3 % % Eos % (Auto) 1.7 % % Baso % (Auto) 0.7 % % Neut # (Auto) 3.77 10^3/uL 10^3 /uL (1.8-7.7) Lymph # (Auto) 2.4 10^3/uL 10^3/ uL (0.8-4.8) [place] # (Auto) 0.7 10^3/uL 10^3/ uL (0.2-0.9) Eos # (Auto) 0.1 10^3/uL 10^3/ uL (0.0-0.8) Baso # (Auto) 0.1 10^3/uL 10^3/ uL (0.0-0.1) Nucleated RBC % (a uto) 0 % % Nucleated RBCs # 0.0 /100WBC /100W BC Sodium 145 mmol/L mmol/L (136-145) Potassium 4.2 mmol/L mmol/L (3.5-5.1) Chloride 106 mmol/L mmol/L (98-107) Carbon Dioxide 25 mmol/L mmol/L (22-29) Anion Gap 18.2 (5-19) BUN 35 mg/dL H mg/dL (8-23) Creatinine 0.9 mg/dL mg/dL (0.5-0.9) GFR Calculation Not Reportable Glucose 150 mg/dL H mg/dL (65-115) Calculated Osmolal ity 311 mOsm/kg H mOs m/kg (285-295) Lactate 0.9 mmol/L mmol/L (0.5-2.2) Calcium 9.2 mg/dL mg/dL (8.5-10.5) Total Bilirubin 0.8 mg/dL mg/dL (0.15-1.2) AST 23 U/L U/L (0-32) ALT 18 U/L U/L (0-33) Alkaline Phosphata se 67 IU/L IU/L (35-105) Troponin T Baselin e NT-Pro-B Natriuret Pep 258 pg/mL pg/mL (0-450) Total Protein 6.3 g/dL L g/dL (6.6-8.7) Albumin 4.0 g/dL g/dL (3.5-5.2) Globulin 2.3 g/dL g/dL (1.3-4.6) Lipase 25 U/L U/L (13-60) Urine Color Urine Appearance Urine pH Ur Specific Gravit y Urine Protein Urine Glucose (UA) Urine Ketones Urine Blood Urine Nitrate Urine Bilirubin Urine Urobilinogen Ur Leukocyte Jahaira ase Urine RBC Urine WBC Ur Squamous Epith Cells Amorphous Sediment Urine Bacteria Urine Yeast 05/15/21 05/15/21 16:11 16:35 WBC RBC Hgb Hct MCV MCH MCHC RDW Plt Count MPV Neut % (Auto) Lymph % (Auto) [place] % (Auto) Eos % (Auto) Baso % (Auto) Neut # (Auto) Lymph # (Auto) [place] # (Auto) Eos # (Auto) Baso # (Auto) Nucleated RBC % (a uto) Nucleated RBCs # Sodium Potassium Chloride Carbon Dioxide Anion Gap BUN Creatinine GFR Calculation Glucose Calculated Osmolal ity Lactate Calcium Total Bilirubin AST ALT Alkaline Phosphata se Troponin T Baselin e 31 ng/L H ng/L (0-10) NT-Pro-B Natriuret Pep Total Protein Albumin Globulin Lipase Urine Color Dark yellow (Yellow) Urine Appearance Clear (CLEAR) Urine pH 5 (5-7) Ur Specific Gravit y 1.030 (1.005-1.030) Urine Protein Trace (Negative) Urine Glucose (UA) Norm (Normal) Urine Ketones 1+ H (Negative) Urine Blood Neg (Negative) Urine Nitrate Negative (Negative) Urine Bilirubin Neg (Negative) Urine Urobilinogen Norm mg/dL mg/dL (Negative) Ur Leukocyte Jahaira ase Negative (Negative) Urine RBC None /hpf /hpf (0-2) Urine WBC 5-10 /hpf H /hpf (0-5) Ur Squamous Epith Cells 5-10 /hpf H /hpf (0-5) Amorphous Sediment Not Reportable Urine Bacteria 2+ /hpf H /hpf (NONE) Urine Yeast 1+ /hpf H /hpf Imaging Data^: Other Imaging: Radiologist's impression: [address] [id number] ReportSigned Patient: Caden Gupta #: [id number]: 1940cct#:[id number]/Sex: 80 / FADM Date: 05/15/21Loc: ERRoom/Bed:Attending Dr: Ordering Provider/Ordering MD: Krista Pradhan MD Date of Service: 05/15/21 Procedure(s): XR chest 1V portable [id number] Accession Number(s): [id number] Report Number: [id number] PROCEDURE INFORMATION: Exam: XR Chest Exam date and time: 05/15/2021 3:36 PM Age: 80 years old Clinical indication: Other: Congestion; Additional info: AMS TECHNIQUE: Imaging protocol: XR of the chest. Views: 1 view. COMPARISON: CR XR chest 1V portable [id number] 09/09/2019 9:38 PM FINDINGS: Tubes, catheters and devices: Right PICC line terminates in the mid SVC. Lungs: Hyperinflated lungs with diffuse coarsening of the lung parenchyma. No consolidation. Pleural spaces: Unremarkable. No pleural effusion. No pneumothorax. Heart/Mediastinum: Stable cardiomegaly and central pulmonary vascular congestion. Bones/joints: Unremarkable. XR/XR chest 1V portable [id number] IMPRESSION: Stable exam, no acute findings. Dictated By:Tyson Tang DOSigned By:Tyson Tang DOSigned Date/Time:05/15/21 1616DD/ 1536 [facility] [place] [id number] Scan ReportSigned Patient: Caden Gupta #: [id number]: 2Acct#:[id number]/Sex: 80 / FADM Date: 05/15/21Loc: ERRoom/Bed:Attending Dr: Ordering Provider/Ordering MD: Krista Pradhan MD Date of Service: 05/15/21 Procedure(s): CT head wo con* [id number] Accession Number(s): [id number] Report Number: [id number] PROCEDURE INFORMATION: Exam: CT Head Without Contrast Exam date and time: 05/15/2021 2:46 PM Age: 80 years old Clinical indication: Altered mental status/memory loss; Additional info: Eval brain bleed TECHNIQUE: Imaging protocol: Computed tomography of the head without contrast. Radiation optimization: All CT scans at this facility use at least one of these dose optimization techniques: automated exposure control; mA and/or kV adjustment per patient size (includes targeted exams where dose is matched to clinical indication); or iterative reconstruction. COMPARISON: CT head wo con* [id number] 09/09/2019 9:48 PM RADIATION DOSE METRICS: Total DLP (mGy-cm): 1053.94 FINDINGS: Brain: No hemorrhage. Moderate diffuse cerebral atrophy. Unremarkable white matter. No mass effect. Cerebral ventricles: No ventriculomegaly. Paranasal sinuses: Visualized sinuses are unremarkable. No fluid levels. Mastoid air cells: Visualized mastoid air cells are well aerated. Bones/joints: Unremarkable. No acute fracture. Soft tissues: Unremarkable. CT/CT head wo con* [id number] IMPRESSION: No acute intracranial abnormality. Dictated By:Tyson Tang DOSigned By:Tyson Tang DOSigned Date/Time:05/15/21 1609DD/ 1446 Discharge Plan Discharge Patient Disposition: Admitted As Inpatient Clinical Impression: Altered mental status, Elevated troponin Condition: Stable Coding Level of Care Code ED [employer] for Rey Leach
[2021-05-15 15:11] VITALS: BP 168/54; PULSE 50; RESP 20; O2SAT 92; BMI 25.7
[2021-05-15 15:28] VITALS: PULSE 64; O2SAT 93
--- NOTE | 2021-05-15 15:35 | ECG_ITS ---
[facility] Test Date: 2021-05-15 Pat Name: Caden Gupta Department: Room: Gender: Female Director Of Anesthesia Services: : 1940 Requested By: Krista Pradhan Order Number: [id number] Radha MD: Jefferson Justin M.D. Measurements Intervals [place] Rate: 56 P: 98 HI: 287 QRS: -36 QRSD: 102 T: 62 QT: 440 QTc: 428 Interpretive Statements SINUS BRADYCARDIA WITH SINUS ARRHYTHMIA WITH FIRST DEGREE AV BLOCK LEFT AXIS DEVIATION [QRS AXIS < -30] INCOMPLETE RIGHT BUNDLE BRANCH BLOCK [90+ ms QRS DURATION, TERMINAL R IN V1/V2, 40+ ms S IN I/aVL/V4/V5/V6] NONSPECIFIC T-WAVE ABNORMALITY Compared to ECG 09/10/2019 03:39:02 Incomplete right bundle-branch block now present T-wave abnormality now present Sinus rhythm no longer present Myocardial infarct finding no longer present Electronically Signed On 05-15-2021 20:11:47 [employer] by Jefferson Justin M.D. [email or web address]
--- NOTE | 2021-05-15 15:36 | XRR_ITS ---
PROCEDURE INFORMATION: Exam: XR Chest Exam date and time: 05/15/2021 3:36 PM Age: 80 years old Clinical indication: Other: Congestion; Additional info: AMS TECHNIQUE: Imaging protocol: XR of the chest. Views: 1 view. COMPARISON: CR XR chest 1V portable [id number] 09/09/2019 9:38 PM FINDINGS: Tubes, catheters and devices: Right PICC line terminates in the mid SVC. Lungs: Hyperinflated lungs with diffuse coarsening of the lung parenchyma. No consolidation. Pleural spaces: Unremarkable. No pleural effusion. No pneumothorax. Heart/Mediastinum: Stable cardiomegaly and central pulmonary vascular congestion. Bones/joints: Unremarkable. XR/XR chest 1V portable [id number] IMPRESSION: Stable exam, no acute findings.
[2021-05-15 16:22] LABS: Basophils # 0.1 10^3/uL (0.0-0.1); Basophils % 0.7 %; Eosinophils # 0.1 10^3/uL (0.0-0.8); Eosinophils % 1.7 %; Hematocrit 41.6 % (37.0-47.0); Hemoglobin 13.3 g/dL (11.5-15.3); Lymphocytes # 2.4 10^3/uL (0.8-4.8); Lymphocytes % 33.8 %; Mean Corpuscular Hemoglobin 27.8 pg (28.0-34.0); Mean Corpuscular Volume 86.8 fl (81-99); Mean Platelet Volume 10.3 fL (7.4-10.4); Monocytes # 0.7 10^3/uL (0.2-0.9); Monocytes % 9.3 %; Neutrophils # 3.77 10^3/uL (1.8-7.7); Neutrophils % 54.2 %; Nucleated Red Blood Cells % 0 %; Platelet Count 300 10^3/cmm (130-400); Red Blood Count 4.79 10^6/uL (4.1-5.3); Red Cell Distribution Width 14.4 % (12.1-15.1)
[2021-05-15 16:45] LABS: Troponin(5th) Baseline 31 ng/L (0-10)
[2021-05-15 16:49] LABS: Lactate (Lactic Acid level) 0.9 mmol/L (0.5-2.2)
[2021-05-15 16:58] LABS: Alanine Aminotransferase 18 U/L (0-33); Alkaline Phosphatase 67 IU/L (35-105); Anion Gap 18.2 (5-19); Aspartate Amino Transferase 23 U/L (0-32); Blood Urea Nitrogen 35 mg/dL (8-23); Calcium 9.2 mg/dL (8.5-10.5); Carbon Dioxide 25 mmol/L (22-29); Chloride 106 mmol/L (98-107); Globulin 2.3 g/dL (1.3-4.6); Glucose 150 mg/dL (65-115); Lipase 25 U/L (13-60); NT Pro B Type Natriuretic Pept 258 pg/mL (0-450); Osmolality Calculated 311 mOsm/kg (285-295); Potassium 4.2 mmol/L (3.5-5.1); Sodium 145 mmol/L (136-145); Total Bilirubin 0.8 mg/dL (0.15-1.2); Total Protein 6.3 g/dL (6.6-8.7)
[2021-05-15 17:10] LABS: Add Urine Microscopic? YES; Bilirubin Urine Neg (Negative); Blood Urine Neg (Negative); Glucose Urine UA Norm (Normal); Ketones Urine 1+ (Negative); Leukocyte Esterase Urine Negative (Negative); Nitrate Urine Negative (Negative); Protein Urine Trace (Negative); Urine Appearance Clear (CLEAR); Urine Color Dark Yellow (Yellow); Urobilinogen Urine Norm (Negative); pH Urine 5 (5-7)
[2021-05-15 17:19] LABS: Add Urine Culture? Yes; Bacteria Urine 2+ /hpf
--- NOTE | 2021-05-15 17:31 | XRR_ITS ---
PROCEDURE INFORMATION: Exam: XR Pelvis Exam date and time: 05/15/2021 5:31 PM Age: 80 years old Clinical indication: Pelvic pain; Additional info: Hip pain TECHNIQUE: Imaging protocol: XR pelvis. Views: 1 or 2 view. COMPARISON: No relevant prior studies available. FINDINGS: Bones/joints: Generalized osseous demineralization. No acute fracture. Moderate degenerative narrowing of both hips. 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 Soft tissues: Unremarkable. XR/XR pelvis 1-2V* [id number] IMPRESSION: No acute findings. Moderate degenerative narrowing of both hips.
--- NOTE | 2021-05-15 17:31 | XRR_ITS ---
PROCEDURE INFORMATION: Exam: XR Right Foot Exam date and time: 05/15/2021 5:31 PM Age: 80 years old Clinical indication: Pain; Foot; Bilateral; Additional info: Foot pain TECHNIQUE: Imaging protocol: XR Right foot. Views: 1 or 2 views. COMPARISON: No relevant prior studies available. FINDINGS: Bones/joints: Generalized osseous demineralization. Osseous structures appear intact without evidence of fracture. Moderate size calcaneal spurs noted as well as calcifications in the region of the plantar fascia. Soft tissues: Normal. Vasculature: Vascular calcifications within the foot are noted. XR/XR foot RT 2V [id number] IMPRESSION: No acute findings.
--- NOTE | 2021-05-15 17:31 | XRR_ITS ---
PROCEDURE INFORMATION: Exam: XR Left Foot Exam date and time: 05/15/2021 5:31 PM Age: 80 years old Clinical indication: Pain; Foot; Bilateral; Additional info: Foot pain TECHNIQUE: Imaging protocol: XR Left foot. Views: 1 or 2 views. COMPARISON: No relevant prior studies available. FINDINGS: Bones/joints: Generalized osseous demineralization. Visualized osseous structures are intact. No evidence of fracture. Moderate size calcaneal spur is noted as well as calcifications in the region of the plantar fascia and at the Achilles insertion. Soft tissues: Normal. Vasculature: Vascular calcifications within the foot are noted. XR/XR foot LT 2V [id number] IMPRESSION: No acute findings.
--- NOTE | 2021-05-15 17:35 | ECG_ITS ---
[facility] Test Date: 2021-05-15 Pat Name: Caden Gupta Department: Room: Gender: Female Manager Underwriting: : 1940 Requested By: Krista Pradhan Order Number: [id number] Radha MD: Jefferson Justin M.D. Measurements Intervals [place] Rate: 65 P: 75 NJ: 303 QRS: -32 QRSD: 109 T: 50 QT: 451 QTc: 470 Interpretive Statements SINUS RHYTHM WITH FIRST DEGREE AV BLOCK LEFT AXIS DEVIATION [QRS AXIS < -30] POSSIBLE ANTERIOR MYOCARDIAL INFARCTION , PROBABLY OLD [30 ms Q WAVE IN V3/V4, OR R < 0.2 mV IN V4] Compared to ECG 05/15/2021 16:19:12 Myocardial infarct finding now present Sinus bradycardia no longer present Sinus arrhythmia no longer present Incomplete right bundle-branch block no longer present T-wave abnormality no longer present Electronically Signed On 05-15-2021 20:33:00 RO[address] CUTTER by Jefferson Justin M.D. [id number]
[2021-05-15 17:43] LABS: SARS Covid-2 Antigen Negative (Negative)
[2021-05-15] MEDS: cefTRIAXone 1,000 MG in sodium chloride 0.9% (plus) 50 ML 100 MG IV (18:11)
[2021-05-15 18:30] VITALS: PULSE 56; O2SAT 95
[2021-05-15 18:32] LABS: Troponin 5 2HR 29.58 ng/L (0-10)
[2021-05-15 18:34] LABS: Troponin 5 2HR Delta -1.42 ABS# (0-10)
--- NOTE | 2021-05-15 18:46 | PM.HP ---
Providers/Chief Complaint Primary Care Provider: TWIN Ramirez Chief Complaint: AMS History of Present Illness Caden Gupta is a 80 year old female with past medical history of diabetes, hypertension, newly diagnosed congestive heart failure and recent UTI, recent pneumonia presented to the hospital from [facility] for altered mental status. Patient's daughter is at bedside who provided all of the history. She states that patient was at [facility] for a urinary tract infection and there was a lot of work-up done there where she was also sent to [facility] for MRI but she is unsure for what. She said that she was discharged with a PICC line with IV antibiotics for the UTI. She states that about 6 weeks ago patient started getting weaker and she fell at home and she could not walk after that. She was diagnosed with pneumonia, UTI and congestive heart failure at [facility]. Daughter does not know the specifics. After she was optimized patient was discharged to [facility]. When daughter went to visit the half-way she noticed patient is not eating and is screaming in pain and also has not urinated or had a bowel movement. Patient's daughter requested to have her sent to the hospital and that is why they are here today. When patient was seen she was complaining of pain in her hips. Other than that she denied shortness of breath, chest pain, belly pain. She only complained of pain in her hips and her feet. She does have a PICC line in place that was placed on May 09. We do not have any other records. Daughter also states that once patient is discharged from our hospital she would like to take her to a different location rather than back to [facility]. Her baseline functional status prior to was that the patient was able to get around on her own has and mentally was starting to have some signs of dementia but generally was okay. ED course: Blood pressure 168/54, respiratory 20, pulse 80s to 90s. Patient afebrile, troponin 31 unsure of baseline. EKG nonischemic. Chest x-ray negative for acute findings. CT brain negative, urinalysis slightly abnormal. Patient did get 1 dose of ceftriaxone in the hospital. Hip x-ray bilaterally and foot x-ray bilaterally were also performed and they were unremarkable. Review of Systems General: Reports: ROS unobtainable due to medical condition and ROS unobtainable due to mental status Medications/Allergies Home Medications Medication Instructions Recorded Confirmed Last Taken Type ergocalciferol (vitamin D2) 1,250 mcg PO Q7D 09/10/19 05/15/21 09/09/19 History [Vitamin D2] levothyroxine 50 mcg PO DAILY@0500 09/10/19 05/15/21 05/14/21 History metoprolol tartrate 50 mg PO BID@09/10/19 05/15/21 05/14/21 History pantoprazole 40 mg PO DAILY@0600 09/10/19 05/15/21 05/14/21 History amlodipine 5 mg PO DAILY@0805/15/21 05/15/21 05/14/21 History ascorbic acid (vitamin C) [Vitamin 500 mg PO DAILY 05/15/21 05/15/21 05/14/21 History C] atorvastatin 10 mg PO DAILY@199905/15/21 05/15/21 05/14/21 History escitalopram oxalate 10 mg PO DAILY@79905/15/21 05/15/21 05/14/21 History gabapentin 300 mg PO TID@05/15/21 05/15/21 05/14/21 History insulin glargine [Lantus Solostar 10 unit SUBCUT BID 05/15/21 05/15/21 05/14/21 History U-100 Insulin] lorazepam [Ativan] 0.5 mg PO BID PRN 05/15/21 05/15/21 Unknown History [id number] acid-lutein [Centrum 1 tab PO DAILY@0805/15/21 05/15/21 05/14/21 History Silver] zinc 50 mg PO DAILY@0800 05/15/21 05/15/21 05/14/21 History Allergies Allergy/AdvReac Type Severity Reaction Status Date / Time No Known Allergies Allergy Verified 09/09/19 22:38 PFSH Acute PFSH: Medical History (Updated 05/15/21 @ 19:58 by Angelica Levy MD) Chronic constipation Diabetes mellitus Dyslipidemia Elbow fracture, left Hyperlipidemia Hypertension Type 2 diabetes mellitus Surgical History H/O lumpectomy H/O: hysterectomy Family History Denies family history of CAD (coronary artery disease) Clotting disorder Chronic kidney disease (CKD) Bleeding disorder Cancer Social History Smoking and tobacco status: never smoked Alcohol intake: never Household members: family Housing: House Vitals/I&O/Wt Last Vital Signs Pulse 50 L 05/15/21 15:11 Resp 20 H 05/15/21 15:11 BP 168/54 05/15/21 15:11 Pulse Ox 92 05/15/21 15:11 Weight last 48 hrs Weight 68.039 kg Physical Exam Narrative: EXAM NARRATIVE: General: Alert but confused and not oriented. Unable to provide a history at all., patient seen laying in bed appearing uncomfortable and stating she is in pain. Keeps complaining of pain in her hips. HEENT: Normocephalic, atraumatic, EOMI, breathing nasal cannula 2 L. Cardio: Regular rate rhythm, normal S1-S2, no murmurs rubs gallops, unable to assess JVD as patient cannot sit up. Respiratory: Good bilateral air entry anterior lung cardozo, unable to auscultate the posterior bibasilar clear, no wheezes no rhonchi appreciated GI: Abdomen soft, nontender, obese rounded abdomen, nondistended, bowel sounds + Extremities: no edema, no cyanosis, Musculoskeletal: Significant bilateral lower extremity weakness. Able to move her legs a little bit with attempt to lift off the bed but cannot. Able to wiggle her toes, sensation intact 5 out of 5, upper extremities strength decreased 2 out of 5 bilateral upper extremities. Extraocular movements intact, PERRLA, face symmetrical, cranial nerves appear to be okay but she cannot really participated in exam. Able to move all 4 extremities but has significant weakness overall. Data : 05/15/21 16:11 05/15/21 16:11 Micro: Microbiology 05/15/21 18:02 Blood Culture - Preliminary Blood SPECIMEN COLLECTED 05/15/21 16:11 Blood Culture - Preliminary Blood SPECIMEN COLLECTED A&P Assessment and plan (1) Altered mental status: Status: Acute (2) Acute UTI: Status: Acute (3) Hyperlipidemia: Status: Acute (4) Diabetes mellitus: Status: Acute (5) Hypertension: Status: Acute (6) Failure to thrive: Status: Acute (7) Chronic constipation: Status: Acute Additional A&P Information #Altered mental status #Failure to thrive #Deconditioning #Chronic constipation #Possible UTI #Hypertension #Hyperlipidemia #Diabetes mellitus Patient did have a very recent UTI and was discharged 2 days ago to go to [facility]. She had pneumonia UTI and a new diagnosis of congestive heart failure at [facility]. After speaking to daughter it seems she had an MRI and extensive work-up there. She was discharged with a PICC line with IV doxycycline on May 13. PICC line was placed on May 09. I will ask our nursing staff to obtain records from both hospitals so we can get a better idea of what was going on. For constipation I will get patient started on lactulose 20 g every 6 hours German catheter has been placed Send for urine culture Check blood culture Continue ceftriaxone daily We will continue levothyroxine There was some evidence of bradycardia with heart rate of 56. I would hold off on Lopressor for now and monitor on telemetry. Continue amlodipine 5 mg daily We will hold insulin and patient has not been eating. Will place on percocet 10 for pain q4 hours Speech and swallow eval to be ordered Physical therapy, Occupational Therapy DNR/DNI?patient's daughter is at bedside and this was discussed with her DVT prophylaxis Heparin Attestations Medical Necessity Statement*: > 48 hours Coding Level of Care Code Acute Metrologist for Rey Fwd Diagnoses Altered mental status R41.82 Acute UTI N39.0 Hyperlipidemia E78.5 Diabetes mellitus E11.9 Hypertension I10 Failure to thrive Chronic constipation K59.09
[2021-05-15 20:20] VITALS: RESP 16
[2021-05-15] MEDS: morphine 4 mg/mL SDV 1 mL 1 MG IVP (20:20)
[2021-05-15] MEDS: lactulose oral liq 20 gm/30 mL UDC PO ×2 (20:36→23:13)
--- NOTE | 2021-05-15 21:35 | ECG_ITS ---
[facility] Test Date: 2021-05-15 Pat Name: Caden Gupta Department: Room: EDIP Gender: Female Ict Sales Assistant: : 1940 Requested By: Krista Pradhan Order Number: [id number] Radha MD: Jefferson Justin M.D. Measurements Intervals [place] Rate: 58 P: -43 TN: 266 QRS: -36 QRSD: 117 T: 50 QT: 455 QTc: 450 Interpretive Statements SINUS BRADYCARDIA WITH FIRST DEGREE AV BLOCK LEFT AXIS DEVIATION [QRS AXIS < -30] INCOMPLETE RIGHT BUNDLE BRANCH BLOCK [90+ ms QRS DURATION, TERMINAL R IN V1/V2, 40+ ms S IN I/aVL/V4/V5/V6] POSSIBLE ANTERIOR MYOCARDIAL INFARCTION , PROBABLY OLD [30 ms Q WAVE IN V3/V4, OR R < 0.2 mV IN V4] Compared to ECG 05/15/2021 18:25:20 Incomplete right bundle-branch block now present Sinus rhythm no longer present Myocardial infarct finding still present Electronically Signed On 05-16-2021 20:49:26 CRATING AND MOVING ESTIMATOR by Jefferson Justin M.D. [id number]
[2021-05-15] MEDS: LORazepam 0.5 mg Tablet PO (22:28)
[2021-05-15 22:43] LABS: Troponin 5 6HR 31.37 ng/L (0-10); Troponin 5 6HR Delta 0.37 ng/L (0-12)
[2021-05-15 22:44] LABS: Vitamin B12 1042 pg/mL (232-1245)
[2021-05-15] MEDS: atorvastatin 40 mg Tablet 10 MG PO (23:12)
[2021-05-15] MEDS: enoxaparin 40 mg/0.4 mL Syringe SUBCUT (23:12)
[2021-05-15] MEDS: gabapentin 300 mg Capsule PO (23:13)
[2021-05-15] MEDS: pantoprazole 40 mg SDV IVP (23:13)
[2021-05-16] VITALS (12 sets, daily range): BP systolic 157–179; BP diastolic 54–76; PULSE 55–72; RESP 15–28; TEMP 36.6–36.7; O2SAT 91–97; BMI 34.3
[2021-05-16] MEDS: LORazepam 2 mg/mL INJ 1 mL (00:03)
[2021-05-16 00:34] LABS: Influenza A by IFA Negative (Negative); Influenza B by IFA Negative (Negative)
[2021-05-16] MEDS: sodium chloride 0.9% 1,000 ML 75 ML IV (02:03)
[2021-05-16 02:26] LABS: Basophils # 0.1 10^3/uL (0.0-0.1); Basophils % 0.8 %; Eosinophils # 0.2 10^3/uL (0.0-0.8); Eosinophils % 2.2 %; Hematocrit 37.6 % (37.0-47.0); Hemoglobin 12.1 g/dL (11.5-15.3); Lymphocytes # 2.3 10^3/uL (0.8-4.8); Lymphocytes % 32.4 %; Mean Corpuscular HGB Conc 32.2 g/dL (30.0-36.0); Mean Corpuscular Hemoglobin 27.9 pg (28.0-34.0); Mean Corpuscular Volume 86.6 fl (81-99); Mean Platelet Volume 10.8 fL (7.4-10.4); Monocytes # 0.7 10^3/uL (0.2-0.9); Monocytes % 9.7 %; Neutrophils # 3.94 10^3/uL (1.8-7.7); Neutrophils % 54.5 %; Nucleated Red Blood Cells % 0 %; Platelet Count 275 10^3/cmm (130-400); Red Blood Count 4.34 10^6/uL (4.1-5.3); Red Cell Distribution Width 14.1 % (12.1-15.1); White Blood Count 7.2 10^3/uL (4.0-10.0)
[2021-05-16 02:31] LABS: INR 1.14 (0.8-1.2)
[2021-05-16 02:53] LABS: Alanine Aminotransferase 15 U/L (0-33); Albumin Level 3.5 g/dL (3.5-5.2); Alkaline Phosphatase 60 IU/L (35-105); Anion Gap 18.8 (5-19); Aspartate Amino Transferase 18 U/L (0-32); Blood Urea Nitrogen 35 mg/dL (8-23); Calcium 8.9 mg/dL (8.5-10.5); Carbon Dioxide 23 mmol/L (22-29); Chloride 108 mmol/L (98-107); Globulin 2.3 g/dL (1.3-4.6); Glucose 144 mg/dL (65-115); Magnesium 1.6 mg/dL (1.7-2.3); Osmolality Calculated 313 mOsm/kg (285-295); Phosphorus 2.9 mg/dL (2.5-4.5); Potassium 3.8 mmol/L (3.5-5.1); Sodium 146 mmol/L (136-145); Thyroid Stimulating Hormone 1.94 uIU/mL (0.27-4.20); Total Bilirubin 0.7 mg/dL (0.15-1.2); Total Protein 5.8 g/dL (6.6-8.7)
--- NOTE | 2021-05-16 07:15 | PC.NURSE ---
NURSE ROUNDING ON PATIENT AFTER SHIFT CHANGE. PATIENT APPEARS TO BE EXPERIENCING PARANOIA AND MENTIONS SOMEONE MURDERING HER CHILDREN.
--- NOTE | 2021-05-16 08:07 | PC.NURSE ---
NURSE ENTERED PATIENT ROOM TO CHECK VITALS AND ASK ABOUT MORNING MEDICATIONS. PATIENT REFUSED TO PUT ON BLOOD PRESSURE CUFF OR SPO2 MONITOR. PATIENT REFUSING ALL MORNING MEDS. PATIENT APPEARS CONFUSED AND TELLING NURSE THAT THOSE MEDICATIONS WON'T DO ANY GOOD AND THAT SHE IS WORRIED ABOUT MY KIDS BEING MURDERED. PATIENT STATES THAT SHE SEES A RANDOM MAN AT THE TABLE, REFERRING TO NURSES STATION. NURSE REORIENTED PATIENT. PATIENT RESTING IN BED. PROVIDER NOTIFIED.
--- NOTE | 2021-05-16 09:10 | PC.NURSE ---
PATIENT IS COMBATIVE WITH NURSE. PATIENT PITCH AND TONE OF VOICE INCREASE WHEN NURSE TRIES TO ASSESS PATIENT OR GIVE MEDICATIONS. PATIENT TELLS NURSE TO LEAVE THE ROOM AND THAT PATIENT DOESN'T WANT THIS NURSES HELP.
[2021-05-16] MEDS: cefTRIAXone 1,000 MG in sodium chloride 0.9% (plus) 50 ML 100 MG IV (09:15)
[2021-05-16] MEDS: water for injection-sterile 10 ML (10:15)
[2021-05-16] MEDS: ziprasidone 20 mg/mL SDV 5 MG IM (10:17)
[2021-05-16] MEDS: LORazepam 2 mg/mL INJ 1 mL 1 MG IVP ×2 (10:18→23:33)
--- NOTE | 2021-05-16 10:18 | PC.NURSE ---
PATIENT SPEECH HAS INCREASED TONE, RATE, AND PITCH. NURSE ENTERED ROOM AND PATIENT APPEARS TO BE HAVING SOME PARANOIA AND PULLING ON INDWELLING CATHETER. ED PROVIDER NOTIFIED. MEDICATIONS ORDERED. CATHETER DRAINED.
--- NOTE | 2021-05-16 10:28 | PC.OT ---
OT EVALUATION ORDERS RECEIVED. PER SPEECH THERAPIST, OLMAN; THE PATIENT IS VERY AGITATED AND UNCOOPERATIVE FOR EVALUATION AT THIS TIME. WILL ATTEMPT AGAIN TOMORROW.
--- NOTE | 2021-05-16 10:30 | CT_ITS ---
WS: [id number] CT CHEST, ABDOMEN, AND PELVIS TECHNIQUE: Contrast-enhanced CT of the chest, abdomen, and pelvis with coronal and sagittal reformatt ed images. CLINICAL INFORMATION: ENcephalopathy COMPARISON: None. DLP: 2606.[address] scans at [facility] use at least one of these dose optimization techniques: automated e xposure control; mA and/or kV adjustment per patient size (includes targeted exams where dose is matc hed to clinical indication); or iterative reconstruction. CT CHEST: Lungs are well aerated. No pneumothorax. No acute-appearing pulmonary infiltrates. Bibasilar atelecta sis. No focal pneumonia or pleural fluid. Small 2 mm noncalcified nodule left upper lobe. Postoperati ve changes left humerus. No mediastinal or hilar lymphadenopathy. Moderate thoracic kyphosis. Ankylos is thoracic spine. Disc osteophyte complex T10-11 with mild central canal stenosis. Cardiomegaly. Normal caliber thoracic aorta. Aortic calcification. Coronary calcification. Enlarged l eft thyroid lobe with multiple nodules. CT ABDOMEN AND PELVIS: Mild hepatomegaly. Diffuse fatty infiltration liver. Normal spleen. Mild submucosal enhancement in th e duodenum can be seen with duodenitis.Normal GE junction. Normal portal vein and splenic vein. Fatty atrophy of the pancreas. Vascular calcification. Mild fluid distention of the gallbladder. Adrenal g lands are normal. Normal renal parenchymal enhancement. Bilateral renal cortical atrophy. No hydronep hrosis. German catheter. Air within the bladder due to German catheter placement. Bladder is decompressed. Mild sigmoid constipation. Diverticulosis. No evidence of acute diverticulitis. Normal caliber abdominal aorta. No abdominal pelvic lymphadenopathy. CT/CT chest abd pel w con* IMPRESSION: 1. No acute findings in the chest abdomen or pelvis. 2. Cardiomegaly. 3. Lungs are well aerated. No acute pulmonary infiltrates. Slight bibasilar at electasis. 4. Mild hepatomegaly with diffuse fatty infiltration. 5. Sigmoid diverticulosis. No diverticulitis. 6. German catheter. 7. Mild enhancement in the duodenum can be seen with duodenitis.
--- NOTE | 2021-05-16 10:48 | PC.NURSE ---
Addendum entered by Iona Carreon RN 05/16/21 10:50: NOTE TIMED INCORRECTLY, ASSESSMENT AT 715 AM AFTER SHIFT CHANGE. Original Note: PATIENT APPEARS TO HAVE MILD PARANOIA, MENTIONING WORRISOME THOUGHTS ABOUT SOMEONE MURDERING HER CHILDREN.
[2021-05-16] MEDS: dextrose 5%-sod chloride 0.45% 1,000 ML 75 ML IV (11:08)
[2021-05-16] MEDS: iohexol 300 mg/mL 100 mL Btl IV (12:02)
--- NOTE | 2021-05-16 12:58 | PC.NURSE ---
PATIENT REMAINS SEDATED AND UNABLE FOR PHYSICAL ASSESSMENT AT THIS TIME.
--- NOTE | 2021-05-16 13:15 | PC.SLP ---
Orders received, chart reviewed. Attempted to assess patient for swallowing and she refused. Patient refused to say her name, said this therapist's life was in danger, and that her doctor did not want this therapist to see her. She became easily agitated, was asked if there was anything she needed, and she became more agitated, so this therapist left the room. Will attempt to see the patient after she is placed in a room when fully admitted.
--- NOTE | 2021-05-16 13:49 | PC.NURSE ---
PATIENT REMAINS SEDATED AND NURSE IS UNABLE TO COMPLETE PHYSICAL ASSESSMENT.
[2021-05-16 13:52] LABS: Coronavirus Test Green County Not Detected
--- NOTE | 2021-05-16 15:54 | PC.NURSE ---
Received report from [facility] in [facility], one culture bottle Positive Cocci in Cluster, possible Staph. Report called to Dr. Villeda.
--- NOTE | 2021-05-16 16:01 | P.PN_ITS ---
Subjective Subjective: Interval history: Patient was screaming and moaning in pain, however she did not allow me to examine her, she kept her eyes closed and stated that she wants to be left alone, I did speak with her daughter who is stating that she was seen at [facility], she has been gradually declining for last 2 to 3 weeks at [facility] she was evaluated for worsening functional status, not able to eat, requiring assistance for ambulation, and there was an episode when she became totally mute between 4 PM till 2 AM, this resolved spontaneously, she was diagnosed with cerebral aneurysm, 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 Daughter is not sure why PICC line was placed, but stating that it was likely p laced because of her poor IV access today blood culture showing gram-positive cocci in clusters concerning for staph aureus Requested records from the outside hospital Vitals/I&O/Wt Last Vital Signs Pulse 58 L 05/16/21 15:48 Resp 19 H 05/16/21 15:48 BP 157/54 05/16/21 00:58 Pulse Ox 91 05/16/21 15:48 05/16/21 05/16/21 05/16/21 06:59 14:59 22:59 Intake Total 1050 / 1050 50 / 50 Balance 1050 / 1050 50 / 50 Weight last 48 hrs Weight 68.039 kg Physical Exam Narrative: EXAM NARRATIVE: Patient did not allow me to examine her She is moaning in pain, Saturating well on room air Sinus bradycardia overnight on telemetry Hypertensive She is moving her upper and lower extremities Poor dental hygiene Clinically dehydrated S1, S2 No audible stridor or wheezing Urinary Catheter Management^: German: Cath Placed During This Visit: yes Reason for Continuing Indwelling Catheter: Chronic Indwelling Urinary Catheter on Admission Urinary Catheter Date of Insertion: 05/15/21 Data : 05/16/21 02:00 05/16/21 02:00 Micro: Microbiology 05/15/21 16:11 Blood Culture - Preliminary Blood 05/15/21 18:02 Blood Culture - Preliminary Blood SPECIMEN COLLECTED A&P Assessment and plan (1) Failure to thrive: Status: Acute (2) Altered mental status: Status: Acute (3) Acute UTI: Status: Acute (4) Chronic constipation: Status: Acute (5) Dehydration: Status: Acute (6) Hypernatremia: Status: Acute Additional A&P Information Poor functional status UTI Acute delirium with underlying possible dementia Blood culture positive for gram-positive cocci in clusters, concern for staph aureus, switch her antibiotics to vancomycin Hypernatremia related to dehydration, start D5 half-normal saline Hyperactive delirium related to UTI: Received Geodon and Ativan this morning Chronic constipation: I have requested CT chest abdomen pelvis to rule out any reversible causes for her delirium TSH, B12 normal DNR/DNI Advance diet once she is more awake and alert DVT prophylaxis on board Attestations Medical Necessity Statement*: Continue medical management Time Spent in Patient Care: 16 - 35 minutes Coding Level of Care Code Acute Activity Aid for Chg Fwd Diagnoses Failure to thrive Altered mental status R41.82 Acute UTI N39.0 Chronic constipation K59.09 Dehydration E86.0 Hypernatremia E87.0
[2021-05-16] MEDS: vancomycin 1,000 MG in sodium chloride 0.9% 250 ML 250 MG IV (17:10)
[2021-05-16 17:47] LABS: Glucose Point of Care 140 mg/dL (70-110)
[2021-05-16 18:04] LABS: Procalcitonin 0.06 ng/mL (0-0.5)
--- NOTE | 2021-05-16 19:38 | PC.NURSE ---
i reported low pulse 56 to nurse
[2021-05-16 20:52] LABS: Glucose Point of Care 147 mg/dL (70-110)
--- NOTE | 2021-05-16 23:15 | PC.NURSE ---
Patient is awake, trying to get out of bed. Patient is refusing to tell this name her name, birthday, or any other information. Patient is demanding this nurse to go away. She is sarcastically repeating, I'm your nurse tonsarahi, when this nurse tries to orient patient. Patient states, I have a pretty good idea of where I am. Why don't you behave like your sister. Go out there with them pigs. The patient proceeds to tell this nurse that I am the one who is confused whenever re-orientating patient. Patient continues to try to crawl out of bed, telling this nurse to move out of the way. Patient is getting agitated and beginning to draw back like she is about to hit this nurse, when attempting to adjust IV lines. This nurse educated the patient that she is here with a UTI. Patient states, Well, big deal.
[2021-05-16] MEDS: pantoprazole 40 mg SDV IVP (23:32)
[2021-05-17] VITALS: BP 183/81; PULSE 62; RESP 17; TEMP 36.6; O2SAT 95
[2021-05-17] MEDS: dextrose 5%-sod chloride 0.45% 1,000 ML 75 ML IV (00:16)
--- NOTE | 2021-05-17 00:50 | PC.PHAR ---
Pharmacokinetic dosing service Date: 05/17/21 Time: 50 Objective: Patient: Caden Gupta Floor: 267-1 Age: 80 yo Serum creatinine: 0.8 mg/dL Height: 64.0 Inches Weight (kg): 90.775 Diagnosis: Relevant medical/social history: Cultures and sensitivities: Other labs: Assessment: IBW (kg): 54.70 Dosing wt(kg): 90.775 Estimated Creatinine clearance (ml/min): 49.2 CRCL method: Cockcroft and Gault using ibw(default). Drug selected: Vancomycin Loading dose (mg): 0 Vd (liters): 81.7 (factor used: 0.9 L/kg) Kaleb (hr-1): 0.045 Half life (hrs): 15.40 Recommended dose: 1500 mg Interval: 18 hrs Infusion time (hrs): 1.5 Predicted peak (mcg/mL): 32.0 Predicted trough (mcg/mL): 15.23 Total body weight is being used for vancomycin dosing. Renal function is stable [ ] /unstable [ ] Recommendations: Give Vancomycin 1500 mg q 18 hrs with an expected Cpeak of 32.0 mcg/ml and an expected Ctrough of 15.23 mcg/ml Renal dosing of other antibiotics (review renal dosing of other medications and list guidelines here): Thank you for the consult, will continue to follow. Signature: [facility]
--- NOTE | 2021-05-17 01:31 | PC.NURSE ---
This nurse walked into patient's room. Patient immediately began telling this nurse to get out. When turning on the light, this nurse noticed the patient had her IV line in her hand. Upon further inspection, patient had managed to unscrew the J-loop from the hub, patient was not bleeding. Patient was yelling at this nurse and NANOTECHNOLOGIST to leave her alone. This nurse educated patient nursing staff needed to make sure she was not bleeding from her IV. Patient was still being hateful to nursing staff. J-loop was reattached and IV was flushed, still patent but positional as patient kept her arm bent. Patient suddenly started politely talking with nursing staff, during IV maintenance. IV fluids were moved over to PIIC line, with a sluggish flow.
--- NOTE | 2021-05-17 04:04 | PC.NURSE ---
patient lying awake in bed and states she is visiting, no one is present in the room
--- NOTE | 2021-05-17 04:05 | PC.NURSE ---
patient lying awake in bed, staring into space. patient states she is not in pain when asked
--- NOTE | 2021-05-17 04:06 | PC.NURSE ---
patient lying awake in bed stating she is visiting, reports no pain. Patient was asked if she was thirsty and would like a drink or anything and patient responded, Why? Am I supposed to be?
[2021-05-17] MEDS: haloperidol inj 5 mg/mL INJ 1 mL IM (06:35)
--- NOTE | 2021-05-17 06:44 | PC.NURSE ---
PICC dressing was changed this morning at approximately 0600. Patient began moaning and screaming loudly at 0620. When entering the room to check on patient, patient's eyes were clenched closed, no tears were coming as patient was moaning. This nurse patient had pulled out PICC line and it was laying in the floor. PICC was intact. This nurse flushed other IV access and it was leaking at site. Patient was given IM Haldol per AUG. Dr. Carter was notified that patient pulled out PICC and was told to let them know on days and they can know what to do with it.
[2021-05-17 07:46] VITALS: BP 141/59; PULSE 67; RESP 18; TEMP 36.6; O2SAT 93
--- NOTE | 2021-05-17 09:12 | PC.CHAP ---
Pastoral Care Encounter/Spiritual Assessment Type of Contact [] Declined ranch supervisor visit [] Patient/Family/Request visit [] Outpatient visit [] Follow-up visit [] Physician referral [] Code/Alert [x] Routine visit [] Staff referral [] Actively dying [] Patient sleeping [] Family support [] [] Out of room [] Palliative care [] [] Receiving care in room [] Pre-surgical visit [] Trauma [] Long length of stay [] ICU visit [] Other: Relational/Emotional Strength [] Patient feels connected with others/family/visitors/staff [] Distress [] Loneliness/isolation [] Abandonment Spirituality of Patient [x] Person of Winnie [] Attends Taoism of their Winnie [x] Believes in Prayer [] Reads Bible or Hindu materials [] There are Spiritual issues to be addressed Digital Strategy Manager Interventions [x] Prayer [x] Active listening [x] Non-anxious presence [x] Spiritual/emotional support [] Crisis/trauma care [] Spiritual counseling [] Bereavement support [] Provided bereavement packet [] Provided Bible/devotional materials [] Provided toy/stuffed animal, coloring book to patient or family member [] Provided Communion [] Anointing/[place] [] Salvation [x] Completed spiritual assessment [] Other: Impact on Illness or Injury [] Angry [] Fearful [] Anxious [] Often cries [] Exhaustion [] Unable to work [] Unable to attend religion [] Unable to walk/stand [] Unable to read [] Unable to drive [] Unable to eat/drink [] Unable to sleep [] Unable to be with family [] Patient intubated [] Other: Summary Pt did not look like she was feeling well. Said she had tried to call nurse. Her knee is hurting but it doesn't do any good . Digital Strategy Manager had a difficult time following Pt in her communication. She did indicate she is a person of winnie and accepted prayer. Time spent with patient 5m
--- NOTE | 2021-05-17 09:40 | PC.SLP ---
Attempted to see patient again, however, she had received an injection of Haldol approximately 2 hours before my attempt to see her. Spoke with the patient's nurse and asked her to contact me if the patient awakens and is cooperative, and can participate in her bedside speech and swallowing evaluation.
[2021-05-17 10:42] VITALS: BP 199/75; PULSE 75; RESP 16; TEMP 36.7; O2SAT 93
--- NOTE | 2021-05-17 11:50 | PC.NURSE ---
Attempted to return a call Irena degroot son at [phone] and no one answered.
[2021-05-17 12:11] LABS: Glucose Point of Care 173 mg/dL (70-110)
[2021-05-17] MEDS: LORazepam 0.5 mg Tablet PO (13:16)
--- NOTE | 2021-05-17 14:03 | PC.OT ---
Attempted therapy this date. Patient uncooperative and unable to follow directions. She is yelling/moaning loudly and family is available with her in the room.
--- NOTE | 2021-05-17 15:33 | PC.SLP ---
Second attempt to evaluate patient. Patient reported she was hot so blankets were removed and she was covered with a sheet. Patient was also provided a cold washcloth for her forehead. Patient was offered ice chips, however, she refused to take them. Will continue to monitor for appropriate level of participation.
[2021-05-17] MEDS: fluconazole 100 mg Tablet 200 MG PO (15:51)
[2021-05-17] MEDS: gabapentin 300 mg Capsule PO ×2 (15:51→20:31)
[2021-05-17] MEDS: acetaminophen 325 mg Tablet 650 MG PO (15:51)
[2021-05-17 16:00] VITALS: BP 190/83; PULSE 64; RESP 16; TEMP 36.7; O2SAT 94
--- NOTE | 2021-05-17 16:25 | P.PN_ITS ---
Subjective Subjective: Interval history: Records reviewed Patient was seen in the emergency department around 05/08 and she was transferred to [facility] neuro surgical services for intracerebral hemorrhage. Patient was sustaining falls at home at that time, her intracerebral hemorrhage was d eemed secondary to nontraumatic, hypertensive in nature no intervention was recommended by neurosurgery, [facility] Then she was seen at [facility] in [place] where she was evaluated for generalized weakness, stroke work-up was done MRI head unremarkable, CT head and neck unremarkable she was complaining of knee pain which showed osteoarthritis no fracture were noted, she was discharged back to prison, she was then readmitted for similar complaints and at that time PICC line was placed because of poor IV access and for recurrent UTIs she was placed on doxycycline At this time she has been admitted to [facility] for evaluation and management of generalized weakness This morning patient was awake, oriented to herself, noncooperative, ripped her PICC line, did not allow blood work as well, son was at the bedside who was able to feed her Jell-O, she is refusing most of the medications and meals I requested family to stay with her, family is requesting to discharge her home, daughter is planning to take care of her, I did recommend Gay psych however at this point they are leaning towards home with home health services Vitals/I&O/Wt Last Vital Signs Temp 98.0 F 05/17/21 10:42 Pulse 75 05/17/21 10:42 Resp 16 05/17/21 10:42 BP 199/75 05/17/21 10:42 Pulse Ox 93 05/17/21 10:42 05/17/21 05/17/21 05/17/21 06:59 14:59 22:59 Intake Total 985.0 / 1295.0 870 / 870 Balance 985.0 / 995.0 870 / 870 Weight last 48 hrs Weight 90.775 kg Physical Exam 2 Narrative: EXAM NARRATIVE: To touch her at all However she is able to move her upper and lower extremities, she is talking without any difficulty with her son Refusing most of the meds and meals Extremely dehydrated Dry cracked lips EOMI, PERRLA Saturating well on room air German catheter draining concentrated urine Right arm with bruises around the PICC insertion site, PICC line has been ripped by the patient Nonlabored breathing Urinary Catheter Management^: German: Cath Placed During This Visit: yes Reason for Continuing Indwelling Catheter: Accurate Measurement of Urinary Output in Critically Ill Patients Urinary Catheter Date of Insertion: 05/15/21 Data : 05/16/21 02:00 05/16/21 02:00 Micro: Microbiology 05/15/21 16:11 Blood Culture - Preliminary Blood Staphylococcus sp coag neg 05/15/21 16:35 Urine Culture - Preliminary Urine,Clean Catch Yeast species 05/15/21 18:02 Blood Culture - Preliminary Blood NEGATIVE TO DATE A&P Assessment and plan (1) Hypernatremia: Status: Acute (2) Dehydration: Status: Acute (3) Failure to thrive: Status: Acute (4) Altered mental status: Status: Acute (5) Elevated troponin: Status: Acute (6) Acute UTI: Status: Acute (7) Chronic constipation: Status: Acute (8) Diabetes mellitus: Status: Acute (9) Hypertension: Status: Acute Additional A&P Information Hyperactive delirium Patient is refusing most of her meds and lab work She is dehydrated however son was able to feed her Jell-O this morning She refused IV line, ripped her PICC line Records reviewed summary given in October subjective part For her yeast/UTI added fluconazole She is complaining of knee pain, and then refuses Tylenol Delirium associated to dehydration and UTI, I will discharge her home with home health services if daughter is able to take care of her at home she most likely will need Gay psych evaluation Recent MRI head unremarkable for stroke, CTA head and neck unremarkable, Blood culture prelim report is gram-positive cocci in clusters, contamination versus staph aureus? DNR/DNI Dysphagia level 1 diet DVT prophylaxis contraindicated she recently had hemorrhagic intracerebral hemorrhage secondary to hypertension Attestations Medical Necessity Statement*: Plan to discharge her tomorrow with home health services Time Spent in Patient Care: 16 - 35 minutes Coding Level of Care Code Acute Record Cutter for Rey Fwaakash Diagnoses Hypernatremia E87.0 Dehydration E86.0 Failure to thrive Altered mental status R41.82 Elevated troponin R77.8 Acute UTI N39.0 Chronic constipation K59.09 Diabetes mellitus E11.9 Hypertension I10
--- NOTE | 2021-05-17 16:34 | PC.PT ---
Patient adamantly refused 2 attempts at physical therapy evaluation today and appeared combat if, states she will get up when she wants to. Will reattempt tomorrow.
[2021-05-17 16:48] LABS: Glucose Point of Care 171 mg/dL (70-110)
--- NOTE | 2021-05-17 19:10 | PC.NURSE ---
Report to Savannah PLEITEZ at this time.
[2021-05-17 20:00] VITALS: BP 193/73; PULSE 78; RESP 17; TEMP 37; O2SAT 92
[2021-05-17 20:56] LABS: Glucose Point of Care 148 mg/dL (70-110)
[2021-05-18] VITALS: BP 159/84; PULSE 78; RESP 17; TEMP 37.1; O2SAT 92
[2021-05-18 04:00] VITALS: BP 146/77; PULSE 72; RESP 17; TEMP 36.9; O2SAT 91
[2021-05-18 06:49] LABS: Glucose Point of Care 164 mg/dL (70-110)
[2021-05-18 07:21] VITALS: BP 162/72; PULSE 63; RESP 16; TEMP 36.9; O2SAT 92
[2021-05-18] MEDS: amlodipine 5 mg Tablet PO (08:47)
[2021-05-18] MEDS: escitalopram 10 mg Tablet PO (08:48)
[2021-05-18] MEDS: gabapentin 300 mg Capsule PO ×3 (08:50→21:06)
[2021-05-18] MEDS: acetaminophen 325 mg Tablet 650 MG PO ×2 (09:14→16:25)
[2021-05-18 10:04] LABS: Basophils % 0.6 %; Eosinophils # 0.1 10^3/uL (0.0-0.8); Eosinophils % 2.1 %; Hematocrit 38.6 % (37.0-47.0); Hemoglobin 12.9 g/dL (11.5-15.3); Lymphocytes # 1.6 10^3/uL (0.8-4.8); Lymphocytes % 24.8 %; Mean Corpuscular HGB Conc 33.4 g/dL (30.0-36.0); Mean Corpuscular Volume 83.7 fl (81-99); Mean Platelet Volume 10.3 fL (7.4-10.4); Monocytes # 0.6 10^3/uL (0.2-0.9); Monocytes % 8.4 %; Neutrophils # 4.16 10^3/uL (1.8-7.7); Neutrophils % 63.6 %; Nucleated Red Blood Cells % 0 %; Platelet Count 242 10^3/cmm (130-400); Red Blood Count 4.61 10^6/uL (4.1-5.3); Red Cell Distribution Width 14.2 % (12.1-15.1); White Blood Count 6.5 10^3/uL (4.0-10.0)
[2021-05-18 10:35] LABS: Anion Gap 19.8 (5-19); Blood Urea Nitrogen 20 mg/dL (8-23); Calcium 8.6 mg/dL (8.5-10.5); Carbon Dioxide 20 mmol/L (22-29); Chloride 103 mmol/L (98-107); Glucose 223 mg/dL (65-115); Osmolality Calculated 298 mOsm/kg (285-295); Potassium 3.8 mmol/L (3.5-5.1); Sodium 139 mmol/L (136-145)
--- NOTE | 2021-05-18 10:46 | PM.PN ---
Subjective Subjective: Interval history: Patient was seen and examined this morning, patient is much more cooperative, she is awake and alert oriented to time place and person She was able to take a sip of water Asked PT to evaluate her today advance her diet to consistent carb, Sodium 139 Hyperglycemia noted She has been given fluconazole During MDR plan to get her accepted at a skilled nursing if that is not possible because of her behavioral issues then family is willing to take her home Vitals/I&O/Wt Last Vital Signs Temp 98.4 F 05/18/21 07:21 Pulse 63 05/18/21 07:21 Resp 16 05/18/21 07:21 BP 162/72 05/18/21 07:21 Pulse Ox 92 05/18/21 07:21 05/17/21 05/18/21 05/18/21 22:59 06:59 14:59 Intake Total 50 / 920 240 / 1160 Output Total 1100 / 1100 Balance 50 / 920 -860 / 60 Weight last 48 hrs Weight 91.989 kg Weight 90.775 kg Physical Exam Narrative: EXAM NARRATIVE: Nonfocal neuro exam EOMI, PERRLA Awake and alert Able to move her arms and lower extremity Complaining of knee pain no signs of swelling or septic joint markers noted Clinically looks slightly dehydrated Was able to take sips of water without any aspiration or choking She was able to tell me her name, she was oriented to time place and person S1, S2 Abdomen soft Urinary Catheter Management^: German: Cath Placed During This Visit: yes Reason for Continuing Indwelling Catheter: Acute Urinary Retention or Obstruction Urinary Catheter Date of Insertion: 05/15/21 Data : 05/18/21 09:58 05/18/21 09:58 Micro: Microbiology 05/15/21 16:11 Blood Culture - Preliminary Blood Staphylococcus sp coag neg 05/15/21 16:35 Urine Culture - Preliminary Urine,Clean Catch Yeast species A&P Assessment and plan (1) Hypernatremia: Status: Acute (2) Dehydration: Status: Acute (3) Failure to thrive: Status: Acute (4) Altered mental status: Status: Acute (5) Acute UTI: Status: Acute (6) Chronic constipation: Status: Acute (7) Diabetes mellitus: Status: Acute (8) Hypertension: Status: Acute Additional A&P Information Altered mental status Related to UTI and dehydration Today her mentation is much better Outside records did not reveal any acute stroke Nonfocal neuro exam She was given fluconazole for yeast Blood culture shows contamination Plan to get her accepted to a skilled nursing, family is willing to take her home if she did not get accepted to SNF because of her behavioral issues I did recommend Gay psych for her worsening dementia Plan to discharge her on 7-day fluconazole regimen and Levaquin Hypernatremia improved with improvement in p.o. intake and IV fluids Constipation: We will give her lactulose and senna S today, sluggish bowel movement Diabetes, hyperglycemia, consistent carb diet, moderate sliding scale DNR/DNI DVT prophylaxis: Lovenox Attestations Medical Necessity Statement*: Patient read to be discharged awaiting placement Time Spent in Patient Care: less than 15 minutes Coding Level of Care Code Acute Bio Medical Technician for Rey Leach Diagnoses Hypernatremia E87.0 Dehydration E86.0 Failure to thrive Altered mental status R41.82 Acute UTI N39.0 Chronic constipation K59.09 Diabetes mellitus E11.9 Hypertension I10
[2021-05-18 11:13] VITALS: BP 179/76; PULSE 64; RESP 22; TEMP 37.2; O2SAT 91
[2021-05-18 12:02] LABS: Glucose Point of Care 228 mg/dL (70-110)
[2021-05-18 15:25] VITALS: BP 155/68; PULSE 60; RESP 18; TEMP 36.8; O2SAT 93
--- NOTE | 2021-05-18 15:57 | PC.OT ---
Occupational therapy evaluation attempted. Patient was non-compliant with the eval and declined evaluation.
[2021-05-18 17:24] LABS: Glucose Point of Care 180 mg/dL (70-110)
--- NOTE | 2021-05-18 17:32 | PC.PT ---
Unable to arouse patient on earlier attempt at evaluation, now patient is awake, but refuses participation with physical or occupational therapy, will not even lift her arms all goals she is capable of this. Will reattempt tomorrow, but participation appears doubtful, due to patient mentation.
--- NOTE | 2021-05-18 19:38 | PC.NURSE ---
Report to Pat PLEITEZ at this time.
[2021-05-18 20:00] VITALS: BP 179/74; PULSE 86; RESP 18; TEMP 37.3; O2SAT 93
[2021-05-18 21:14] LABS: Glucose Point of Care 150 mg/dL (70-110)
[2021-05-18] MEDS: lactulose oral liq 20 gm/30 mL UDC PO (21:33)
[2021-05-19] VITALS: BP 166/71; PULSE 82; RESP 16; TEMP 37; O2SAT 92
[2021-05-19 04:00] VITALS: BP 177/79; PULSE 72; RESP 17; TEMP 36.9; O2SAT 94
[2021-05-19] MEDS: pantoprazole DR 40 mg Tablet PO (05:09)
[2021-05-19] MEDS: lactulose oral liq 20 gm/30 mL UDC PO ×2 (05:09→12:12)
[2021-05-19] MEDS: levothyroxine 50 mcg Tablet PO (05:09)
[2021-05-19 06:19] LABS: Glucose Point of Care 165 mg/dL (70-110)
[2021-05-19 08:00] VITALS: BP 180/79; PULSE 74; RESP 18; TEMP 36.6; O2SAT 96
[2021-05-19] MEDS: gabapentin 300 mg Capsule PO (08:07)
[2021-05-19] MEDS: escitalopram 10 mg Tablet PO (08:10)
[2021-05-19] MEDS: amlodipine 5 mg Tablet PO (08:10)
[2021-05-19] MEDS: sennosides-docusate Tablet 1 TAB PO (08:11)
[2021-05-19] MEDS: ascorbic acid 500 mg Tablet PO (08:11)
[2021-05-19 11:26] LABS: Glucose Point of Care 175 mg/dL (70-110)
[2021-05-19 12:00] VITALS: BP 157/82; PULSE 75; RESP 18; TEMP 36.6; O2SAT 96
--- NOTE | 2021-05-19 12:12 | PC.SOCIAL ---
IMM Update pg 2 of IMM updated and reviewed w/ patients daughter and son-in-law. Copy provided.
[2021-05-19] MEDS: insulin lispro 100 unit/1 mL SUBCUT (12:34)
--- NOTE | 2021-05-19 14:02 | PC.NURSE ---
patient refused breakfast and lunch, lining cementer offered to help her eat and she declined
--- NOTE | 2021-05-19 15:03 | PM.DCS ---
Discharge Providers Date of Admission: 05/16/21 00:21 Date of Discharge: May 18, 2021 Attending Provider at Admission: Angelica Levy MD Attending Provider at Discharge: Bethany Allison MD Primary Care Provider: TWIN Ramirez Diagnoses at Discharge Discharge Diagnosis (1) Hypernatremia: Status: Acute (2) Dehydration: Status: Acute (3) Failure to thrive: Status: Acute (4) Altered mental status: Status: Acute (5) Acute UTI: Status: Acute (6) Chronic constipation: Status: Acute (7) Diabetes mellitus: Status: Acute (8) Hypertension: Status: Acute Reason for Visit Reason for Visit: [facility] Hospital Course Hospital Course History of Present Illness by Dr. Mildred Quinteros Alonso is a 80 year old female with past medical history of diabetes, hypertension, newly diagnosed congestive heart failure and recent UTI, recent pneumonia presented to the hospital from [facility] for altered mental status. Patient's daughter is at bedside who provided all of the history. She states that patient was at [facility] for a urinary tract infection and there was a lot of work-up done there where she was also sent to [facility] for MRI but she is unsure for what. She said that she was discharged with a PICC line with IV antibiotics for the UTI. She states that about 6 weeks ago patient started getting weaker and she fell at home and she could not walk after that. She was diagnosed with pneumonia, UTI and congestive heart failure at [facility]. Daughter does not know the specifics. After she was optimized patient was discharged to [facility]. When daughter went to visit the [facility] she noticed patient is not eating and is screaming in pain and also has not urinated or had a bowel movement. Patient's daughter requested to have her sent to the hospital and that is why they are here today. When patient was seen she was complaining of pain in her hips. Other than that she denied shortness of breath, chest pain, belly pain. She only complained of pain in her hips and her feet. She does have a PICC line in place that was placed on May 09. We do not have any other records. Daughter also states that once patient is discharged from our hospital she would like to take her to a different location rather than back to [facility]. Her baseline functional status prior to [place] was that the patient was able to get around on her own has and mentally was starting to have some signs of dementia but generally was okay. ED course: Blood pressure 168/54, respiratory 20, pulse 80s to 90s. Patient afebrile, troponin 31 unsure of baseline. EKG nonischemic. Chest x-ray negative for acute findings. CT brain negative, urinalysis slightly abnormal. Patient did get 1 dose of ceftriaxone in the hospital. Hip x-ray bilaterally and foot x-ray bilaterally were also performed and they were unremarkable. Hospital course Patient was admitted for evaluation of altered mental status. I did extensive review of her records, there were about 80 pages. She was seen in [facility] emergency department after a fall when she was transferred to [facility] around 05/08, at [facility] neurosurgeon recommended conservative management. Her bleeding was consistent with hypertension, was treated as nontraumatic intracerebral hemorrhage secondary to hypertension and got discharged her to a [facility]. At [facility] she started experiencing weakness of her upper extremities for which she was evaluated at [facility] and from there she was transferred to [facility], MRI head unremarkable, head neck CTA did not show any significant stenosis, there were no focal deficits she was treated for UTI, PICC line was placed for her poor iv access, recurrent UTIs and she was discharged back to the [facility]. She was in [facility] for about 2 days when started experiencing agitation, irritability and confusion. She was sent to the [facility] emergency department. she was treated for recurrent UTIs and dehydration. Patient was noncompliant, she ripped her PICC line and removed her German catheter. Next day she did not cooperate at all with the family members as well. However on 05/18 she was much calm and cooperative, her hypernatremia improved. Her urinalysis consistent with yeast for which she received fluconazole, during her hospitalization she did not get enough ceftriaxone however her mentation improved with improvement in her hydration. Blood culture showing contamination. Has been accepted at [facility]. Physical Exam Narrative: EXAM NARRATIVE: Nonfocal neuro exam EOMI, PERRLA Awake and alert Able to move her arms and lower extremity Complaining of knee pain no signs of swelling or septic joint markers noted Clinically looks slightly dehydrated Was able to take sips of water without any aspiration or choking She was able to tell me her name, she was oriented to time place and person S1, S2 Abdomen soft Urinary Catheter Management^: German: Cath Placed During This Visit: yes Reason for Continuing Indwelling Catheter: Acute Urinary Retention or Obstruction Urinary Catheter Date of Insertion: 05/15/21 Discharge Data Data Completed and Pending: Completed Studies During Hospitalization Category Date Time Status CT chest abd pel w con* Urgent Cat Scan 05/16/21 10:[address] head wo con* 7 0450 Urgent Cat Scan 05/15/21 14:46 Completed XR chest 1V tamia ble [id number] Urgent Exams 05/15/21 15:36 Completed XR foot LT 2V 736 20 Urgent Exams 05/15/21 17:31 Completed XR foot RT 2V 736 20 Urgent Exams 05/15/21 17:31 Completed XR pelvis 1-2V* 7 2170 Urgent Exams 05/15/21 17:31 Completed Pending at discharge Category Date Time Status Blood Culture Sta t Lab 05/15/21 18:02 Results Urine Culture Sta t Lab 05/15/21 16:35 Results Labs from last 24 hours 05/18/21 05/18/21 05/18/21 11:00 09:58 09:58 WBC 6.5 RBC 4.61 Hgb 12.9 Hct 38.6 MCV 83.7 MCH 28.0 MCHC 33.4 RDW 14.2 Plt Count 242 MPV 10.3 Neut % (Auto) 63.6 Lymph % (Auto) 24.8 [place] % (Auto) 8.4 Eos % (Auto) 2.1 Baso % (Auto) 0.6 Neut # (Auto) 4.16 Lymph # (Auto) 1.6 [place] # (Auto) 0.6 Eos # (Auto) 0.1 Baso # (Auto) 0.0 Nucleated RBC % (a uto) 0 Nucleated RBCs # 0.0 Sodium 139 Potassium 3.8 Chloride 103 Carbon Dioxide 20 L Anion Gap 19.8 H BUN 20 Creatinine 0.6 GFR Calculation Not Reportable Glucose 223 H POC Glucose 228 H Calculated Osmolal ity 298 H Calcium 8.6 05/18/21 05/17/21 05/17/21 06:44 20:40 16:22 WBC RBC Hgb Hct MCV MCH MCHC RDW Plt Count MPV Neut % (Auto) Lymph % (Auto) [place] % (Auto) Eos % (Auto) Baso % (Auto) Neut # (Auto) Lymph # (Auto) [place] # (Auto) Eos # (Auto) Baso # (Auto) Nucleated RBC % (a uto) Nucleated RBCs # Sodium Potassium Chloride Carbon Dioxide Anion Gap BUN Creatinine GFR Calculation Glucose POC Glucose 164 H 148 H 171 H Calculated Osmolal ity Calcium Vitals: Last Vital Signs Temp 98.9 F 05/18/21 11:13 Pulse 64 05/18/21 11:13 Resp 22 H 05/18/21 11:13 BP 179/76 05/18/21 11:13 Pulse Ox 91 05/18/21 11:13 Discharge Plan Discharge Patient Disposition: Xfer SNF Condition: Stable Prescriptions: New Stool Softener-Laxative 8.6-50 mg Tablet 1 tab PO BID Qty: 10 RF: 0 fluconazole 100 mg tablet 100 mg PO DAILY 7 Days RF: 0 Aspirin Childrens 81 mg tablet,chewable 81 mg PO DAILY Qty: 30 RF: 0 atorvastatin 20 mg tablet 20 mg PO DAILY Qty: 30 RF: 0 Continued levothyroxine 50 mcg Tablet 50 mcg PO DAILY@0500 RF: 0 pantoprazole 40 mg Tablet,Delayed Release (Dr/Ec) 40 mg PO DAILY@0600 RF: 0 metoprolol tartrate 50 mg Tablet 50 mg PO BID@ RF: 0 ergocalciferol (vitamin D2) [Vitamin D2] 1,250 mcg (50,000 unit) Capsule 1,250 mcg PO Q7D RF: 0 Ativan 0.5 mg Tablet 0.5 mg PO BID PRN (Reason: Anxiety) RF: 0 ascorbic acid (vitamin C) [Vitamin C] 500 mg Tablet 500 mg PO DAILY RF: 0 gabapentin 300 mg Capsule 300 mg PO TID@, RF: 0 zinc 50 mg Tablet 50 mg PO DAILY@0800 RF: 0 escitalopram oxalate 10 mg Tablet 10 mg PO DAILY@0800 RF: 0 Centrum Silver 400-250 mcg Tablet,Chewable 1 tab PO DAILY@0800 RF: 0 atorvastatin 10 mg tablet 10 mg PO DAILY@2000 RF: 0 amlodipine 5 mg tablet 5 mg PO DAILY@0800 RF: 0 Lantus Solostar U-100 Insulin 100 unit/mL (3 mL) insulin pen 10 unit SUBCUT BID RF: 0 Discharge Orders: Discharge Order (Routine); Ordered 05/19/21 Ordered By: Bethany Allison Referrals: [facility] [Other] Discharge Diet: Diabetic Discharge Activity: Increase activity as tolerated and Use walker/crutches as instructed Patient Instructions: Aspirin (By mouth), Fluconazole (By mouth), Laxative, Stool Softeners (By mouth), Atorvastatin (By mouth) Discharge Attestations Time Spent in Discharge Care*: less than 30 min Quality Metrics Clinical Quality Measures During this hospital stay, did patient experience: None Coding Level of Care Code Acute [facility] note Diagnoses Hypernatremia E87.0 Dehydration E86.0 Failure to thrive Altered mental status R41.82 Acute UTI N39.0 Chronic constipation K59.09 Diabetes mellitus E11.9 Hypertension I10
[2021-05-19 15:08] VITALS: BP 174/52; PULSE 69; RESP 18; TEMP 36.7; O2SAT 95
== END 2021-05-19 15:42 | disposition skilled nursing facility (03) | DRG 758 ==
LOC: ER 23:08 → ER IP 05-16 00:24 → MEDSURG 05-16 16:55
PROVIDERS: Admitting Provider Internal Medicine; Emergency Provider Emergency Medicine; PCP Nurse Practitioner Family; Visit Provider Internal Medicine
DX: B37.49 Other urogenital candidiasis (principal); E87.0 Hyperosmolality and hypernatremia; F05 Delirium due to known physiological condition; E86.0 Dehydration; I11.0 Hypertensive heart disease with heart failure; I50.9 Heart failure, unspecified; R62.7 Adult failure to thrive; K59.09 Other constipation; E11.65 Type 2 diabetes mellitus with hyperglycemia; E78.5 Hyperlipidemia, unspecified; R00.1 Bradycardia, unspecified; Z91.19 Patient's noncompliance with other medical treatment and regimen; Z68.34 Body mass index [BMI] 34.0-34.9, adult; Z87.440 Personal history of urinary (tract) infections; Z79.4 Long term (current) use of insulin; Z66 Do not resuscitate
CPT/HCPCS: 36415; 36416; 51702; 70450; 71045; 71260; 72170; 73620; 74177; 80048; 80053; 81001; 82607; 82746; 82962; 83605; 83690; 83735; 83880; 84100; 84145; 84443; 84484; 85025; 85610; 87040; 87086; 87106; 87205; 87426; 87635; 87804; 92610; 93005; 94664; 96365; 96372; 97161; 97167; 97530; 99285; C9113; J0696; J1630; J1650; J1815; J2060; J2270; J3370; J3486; J7030; J7050; J7799; Q9967

== ENCOUNTER 2022-04-07 11:24 | Outpatient (CLI) | payer MEDICARE, SELFPAY ==
[2022-04-07 11:45] LABS: Basophils % 0.5 %; Eosinophils # 0.4 10^3/uL (0.0-0.8); Eosinophils % 4.6 %; Hematocrit 32.5 % (37.0-47.0); Lymphocytes # 1.8 10^3/uL (0.8-4.8); Lymphocytes % 21.8 %; Mean Corpuscular HGB Conc 30.8 g/dL (30.0-36.0); Mean Corpuscular Hemoglobin 25.2 pg (28.0-34.0); Mean Corpuscular Volume 81.9 fl (81-99); Mean Platelet Volume 9.8 fL (7.4-10.4); Monocytes # 0.6 10^3/uL (0.2-0.9); Monocytes % 6.8 %; Neutrophils # 5.36 10^3/uL (1.8-7.7); Neutrophils % 65.9 %; Nucleated Red Blood Cells % 0 %; Platelet Count 302 10^3/cmm (130-400); Red Blood Count 3.97 10^6/uL (4.1-5.3); Red Cell Distribution Width 14.6 % (12.1-15.1); White Blood Count 8.1 10^3/uL (4.0-10.0)
[2022-04-07 12:02] LABS: Estmated Average Glucose 108; Hemoglobin A1C 5.4 % (4.0-6.0)
[2022-04-07 12:08] LABS: Alanine Aminotransferase 9 U/L (0-33); Albumin Level 2.8 g/dL (3.5-5.2); Alkaline Phosphatase 80 U/L (35-105); Anion Gap 14.3 (5-19); Aspartate Amino Transferase 12 U/L (0-32); Blood Urea Nitrogen 23 mg/dL (8-23); Carbon Dioxide 25 mmol/L (22-29); Chloride 105 mmol/L (98-107); Chol HDL Ratio 4.64 mg/dL (0.0-4.40); Cholesterol 116 mg/dL (0-200); Ferritin 169 ng/mL (15-150); Globulin 3.3 g/dL (1.3-4.6); Glucose 105 mg/dL (65-115); HDL Cholesterol 25 mg/dL (60-100); Iron 20 ug/dL (37-145); LDL Cholesterol Calculated 72 mg/dL (50-129); LDL HDL Ratio 2.88 RATIO (0.00-3.22); Osmolality Calculated 294 mOsm/kg (285-295); Percent Saturation 14.3 % (20-50); Potassium 4.3 mmol/L (3.5-5.1); Sodium 140 mmol/L (136-145); Thyroid Stimulating Hormone 1.35 uIU/mL (0.27-4.20); Total Bilirubin 0.3 mg/dL (0.15-1.2); Total Iron Binding Capacity 139 mcg/dl; Total Protein 6.1 g/dL (6.6-8.7); Triglycerides 96 mg/dL (0-150); Unsaturated Iron Binding 119 ug/dL (112-347)
== END 2022-04-07 11:25 | disposition home or self-care (01) ==
LOC: LAB 11:25
PROVIDERS: PCP Nurse Practitioner Family; Visit Provider Family Medicine
DX: E03.9 Hypothyroidism, unspecified (principal); E11.40 Type 2 diabetes mellitus with diabetic neuropathy, unspecified; E78.5 Hyperlipidemia, unspecified; E55.9 Vitamin D deficiency, unspecified; I13.0 Hypertensive heart and chronic kidney disease with heart failure and stage 1 through stage 4 chronic kidney disease, or unspecified chronic kidney disease
CPT/HCPCS: 80053; 80061; 82728; 83036; 83540; 83550; 84443; 85025

== ENCOUNTER 2022-04-14 13:37 | Outpatient (CLI) | payer MEDICARE, SELFPAY ==
[2022-04-14 14:02] LABS: Add Urine Microscopic? YES; Bilirubin Urine Neg (Negative); Blood Urine 3+ (Negative); Glucose Urine UA Norm (Normal); Ketones Urine Negative (Negative); Leukocyte Esterase Urine 2+ (Negative); Nitrate Urine Negative (Negative); Protein Urine Trace (Negative); Specific Gravity, Urine 1.005 (1.005-1.030); Sulfosalicylic Acid Urine Negative (Negative); Urine Appearance Cloudy (CLEAR); Urine Color Yellow (Yellow); Urobilinogen Urine Neg (Negative); pH Urine 8 (5-7)
[2022-04-14 14:03] LABS: Add Urine Culture? No; Bacteria Urine 4+ /hpf; RBC Urine 25-40 /hpf (0-2); WBC Urine >100 /hpf (0-5)
== END 2022-04-14 13:38 | disposition home or self-care (01) ==
PROVIDERS: PCP Nurse Practitioner Family; Visit Provider Family Medicine
DX: N39.0 Urinary tract infection, site not specified (principal)
CPT/HCPCS: 81001; 87077; 87086; 87186

== ENCOUNTER 2022-04-24 19:57 | Inpatient (IN) | payer MEDICARE, SELFPAY ==
[2022-04-24] VITALS (14 sets, daily range): BP systolic 149–188; BP diastolic 50–90; PULSE 61–88; RESP 15–21; TEMP 36.6–37.1; O2SAT 94–97; BMI 32.5
--- NOTE | 2022-04-24 20:12 | XRR_ITS ---
PROCEDURE INFORMATION: Exam: XR Chest Exam date and time: 04/24/2022 9:27 PM Age: 81 years old Clinical indication: Other: AMS TECHNIQUE: Imaging protocol: Radiologic exam of the chest. Views: 1 view. COMPARISON: CT chest abd pel w con* 05/16/2021 11:52 AM FINDINGS: Lungs: Hyperaerated lungs consistent with mild COPD . Pleural spaces: Unremarkable. No pleural effusion. No pneumothorax. Heart/Mediastinum: Mild cardiomegaly. Bones/joints: Unremarkable. Other findings: Stable postoperative changes over the left shoulder with metallic artifact. XR/XR chest 1V portable [id number] IMPRESSION: 1. Hyperaerated lungs consistent with mild COPD . 2. Mild cardiomegaly.
--- NOTE | 2022-04-24 20:12 | CTR_ITS ---
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 Radiation optimization: All CT scans at this facility use at least one of these dose optimization techniques: automated exposure control; mA and/or kV adjustment per patient size (includes targeted exams where dose is matched to clinical indication); or iterative reconstruction. COMPARISON: CT head wo con* [id number] 05/15/2021 3:27 PM RADIATION DOSE METRICS: Total DLP (mGy-cm): 1104.98 FINDINGS: Brain: Severe calcified intracranial atherosclerotic vessel disease. Cerebral ventricles: No ventriculomegaly. Paranasal sinuses: Mild right maxillary sinus disease. Mastoid air cells: Visualized mastoid air cells are well aerated. Bones/joints: Unremarkable. No acute fracture. Soft tissues: Interval appearance of soft tissue swelling/hematoma over the left forehead. CT/CT head wo con* [id number] IMPRESSION: 1. Mild right maxillary sinus disease. 2. Interval appearance of soft tissue swelling/hematoma over the left forehead. 3. No acute intracranial findings.
[2022-04-24 20:14] LABS: Glucose Point of Care 149 mg/dL (70-110)
[2022-04-24 20:28] LABS: Basophils % 0.3 %; Eosinophils # 0.1 10^3/uL (0.0-0.8); Eosinophils % 1.6 %; Hematocrit 33.6 % (37.0-47.0); Hemoglobin 10.8 g/dL (11.5-15.3); Lymphocytes # 2.5 10^3/uL (0.8-4.8); Lymphocytes % 31.1 %; Mean Corpuscular HGB Conc 32.1 g/dL (30.0-36.0); Mean Corpuscular Hemoglobin 25.3 pg (28.0-34.0); Mean Corpuscular Volume 78.7 fl (81-99); Mean Platelet Volume 9.8 fL (7.4-10.4); Monocytes # 0.7 10^3/uL (0.2-0.9); Monocytes % 9.2 %; Neutrophils # 4.52 10^3/uL (1.8-7.7); Neutrophils % 57.2 %; Nucleated Red Blood Cells % 0 %; Platelet Count 307 10^3/cmm (130-400); Red Blood Count 4.27 10^6/uL (4.1-5.3); White Blood Count 7.9 10^3/uL (4.0-10.0)
[2022-04-24 20:44] LABS: Alanine Aminotransferase 6 U/L (0-33); Albumin Level 2.8 g/dL (3.5-5.2); Alkaline Phosphatase 75 U/L (35-105); Anion Gap 14.1 (5-19); Aspartate Amino Transferase 8 U/L (0-32); Blood Urea Nitrogen 26 mg/dL (8-23); C Reactive Protein 130.9 mg/L (0.0-4.9); Calcium 9.1 mg/dL (8.5-10.5); Carbon Dioxide 26 mmol/L (22-29); Chloride 100 mmol/L (98-107); Glucose 152 mg/dL (65-115); Osmolality Calculated 290 mOsm/kg (285-295); Potassium 4.1 mmol/L (3.5-5.1); Sodium 136 mmol/L (136-145); Total Bilirubin 0.5 mg/dL (0.15-1.2); Total Protein 6.8 g/dL (6.6-8.7)
[2022-04-24] MEDS: cefTRIAXone 2,000 MG in sodium chloride 0.9% (plus) 50 ML 100 MG IV (20:46)
[2022-04-24] MEDS: sodium chloride 0.9% 1,000 ML 999 ML IV (20:47)
--- NOTE | 2022-04-24 21:25 | W.ED.NEUROSD ---
HPI - Neuro Symptoms/Deficit General: Chief Complaint: Neuro Symptoms/Deficit Stated Complaint: left facial droop, LOC Time Seen by Provider: 04/24/22 20:12 History of Present Illness: 81-year-old female with dementia presents from [facility]. The patient was noted to have a decline in her baseline. 1 person thought they saw a left facial droop. Another person thought they saw a right facial droop. EMS notes that she has been sort of drowsy and has been drooped over in her chair rather than sitting up straight. No report of any paralysis or sensory change on one side or the other. I did find through some digging at the patient is being treated for a urinary tract infection. Her skin feels warm to me despite the room being cool. On my examination she has generalized weakness and delirium but I do not find any evidence that would convince me that she is having stroke. She had a gradual worsening this evening and it was noted that she definitely was not at her baseline by 6 PM. Patient cannot give history as she has dementia and altered mental status. Review of Systems General: Reports: ROS unobtainable due to mental status PFSH ED PFSH: Medical History Acute UTI Altered mental status Chronic constipation Diabetes mellitus Dyslipidemia Elbow fracture, left Elevated troponin Hyperlipidemia Hypertension Type 2 diabetes mellitus Surgical History H/O lumpectomy H/O: hysterectomy Family History Denies family history of CAD (coronary artery disease) Clotting disorder Chronic kidney disease (CKD) Bleeding disorder Cancer Social History Smoking and tobacco status: never smoked Alcohol intake: never Household members: family Housing: House Physical Exam Const: COMMON NORMALS: alert and well nourished EXAM LIMITATIONS: altered mental status HENMT: COMMON NORMALS: normocephalic, external ears normal and moist oral mucous membranes; hearing grossly not normal bilaterally HEAD & SCALP: normocephalic EXTERNAL EAR: Yes external ears normal MOUTH: no muffled voice Eye: COMMON NORMALS: Equal, round and reactive pupils present, EOMs intact bilaterally, conjunctivae normal and no scleral icterus CONJUNCTIVA: Yes conjunctivae normal PUPIL: Yes Equal, round and reactive pupils present Neck/C-Spine: COMMON NORMALS: no meningeal signs and no JVD GENERAL: Yes normal visual inspection and Yes trachea midline Resp: COMMON NORMALS: normal respiratory effort, No use of accessory muscles and clear to auscultation bilaterally AUSCULTATION: clear to auscultation bilaterally Cardio: COMMON NORMALS: no JVD, regular rate and regular rhythm RATE: regular rate RHYTHM: regular rhythm GI: COMMON NORMALS: Soft to palpation PALPATION: Yes Soft to palpation, No Tenderness to palpation present (GI) and No Guarding due to palpation present (GI) Extremity: COMMON NORMALS: normal to inspection Neuro: COMMON NORMALS: CN's II-XII intact bilaterally, moves all extremities, no focal motor deficits and no sensory deficits noted SENSORIUM/ORIENTATION: Yes alert MENINGEAL SIGNS: Yes no meningeal signs SENSORY EXAM: Yes Normal double simultaneous stimulation for sensation OTHER: No drift Psych: COMMON NORMALS: cooperative; negative for mental status grossly normal Skin: COMMON NORMALS: no rashes or lesions noted, turgor normal and no jaundice GENERAL SKIN EXAM: no rashes or lesions noted and turgor normal Course Vital Signs: Vital signs: Vital Signs Temperature 98.7 F 04/24/22 20:05 Pulse Rate 65 04/24/22 20:16 Respiratory Rate 17 04/24/22 20:16 Blood Pressure 165/70 04/24/22 20:05 Pulse Oximetry 96 04/24/22 20:16 Oxygen Delivery Me thod 04/24/22 20:05 MDM - Neuro Symptoms/Deficit Medical Decision Making The patient presents with what I believed to be delirium. She has dementia but has changed from her baseline. I cannot find any focal neurologic abnormalities. The patient is known to be affected by a urinary tract infection. I do not see any medications which are antibiotics on her medication list. I am not sure if she is actually taking antibiotics at this time or not. There has been no trauma. She is not having an overt fever here. Her lungs are clear, abdomen is soft and nontender. No wounds are noted. A CT scan of the head was obtained and shows senescent changes but nothing acute. The chest x-ray also did not show any consolidations. The white blood cell count was normal but her CRP is quite elevated. The patient's urine analysis came back abnormal highly suggestive of UTI. She had ESBL proteus on last culture from 04/14/22. Will put on zosyn. On repeat eval, patient is more alert and interactive, so I think just the fluids alone have helped. Will admit to Dr Allison in obs with zosyn until she gainst strength and abx are working. Lab Data 04/24/22 20:13 04/24/22 20:13 Radiology Impressions Chest X-Ray 04/24/22 20:12 IMPRESSION: 1. Hyperaerated lungs consistent with mild COPD . 2. Mild cardiomegaly. Head CT 04/24/22 20:12 IMPRESSION: 1. Mild right maxillary sinus disease. 2. Interval appearance of soft tissue swelling/hematoma over the left forehead. 3. No acute intracranial findings. Laboratory Results WBC 7.9 10^3/uL (4.0-10.0) 04/24/22 20:13 RBC 4.27 10^6/uL (4.1-5.3) 04/24/22 20:13 Hgb 10.8 g/dL (11.5-15.3) L 04/24/22 20:13 Hct 33.6 % (37.0-47.0) L 04/24/22 20:13 MCV 78.7 fl (81-99) L 04/24/22 20:13 MCH 25.3 pg (28.0-34.0) L 04/24/22 20:13 MCHC 32.1 g/dL (30.0-36.0) 04/24/22 20:13 RDW 15.0 % (12.1-15.1) 04/24/22 20:13 Plt Count 307 10^3/cmm (130-400) 04/24/22 20:13 MPV 9.8 fL (7.4-10.4) 04/24/22 20:13 Neut % (Auto) 57.2 % 04/24/22 20:13 Lymph % (Auto) 31.1 % 04/24/22 20:13 [place] % (Auto) 9.2 % 04/24/22 20:13 Eos % (Auto) 1.6 % 04/24/22 20:13 Baso % (Auto) 0.3 % 04/24/22 20:13 Neut # (Auto) 4.52 10^3/uL (1.8-7.7) 04/24/22 20:13 Lymph # (Auto) 2.5 10^3/uL (0.8-4.8) 04/24/22 20:13 [place] # (Auto) 0.7 10^3/uL (0.2-0.9) 04/24/22 20:13 Eos # (Auto) 0.1 10^3/uL (0.0-0.8) 04/24/22 20:13 Baso # (Auto) 0.0 10^3/uL (0.0-0.1) 04/24/22 20:13 Nucleated RBC % (auto) 0 % 04/24/22 20:13 Nucleated RBCs # 0.0 /100WBC 04/24/22 20:13 Sodium 136 mmol/L (136-145) 04/24/22 20:13 Potassium 4.1 mmol/L (3.5-5.1) 04/24/22 20:13 Chloride 100 mmol/L (98-107) 04/24/22 20:13 Carbon Dioxide 26 mmol/L (22-29) 04/24/22 20:13 Anion Gap 14.1 (5-19) 04/24/22 20:13 BUN 26 mg/dL (8-23) H 04/24/22 20:13 Creatinine 0.7 mg/dL (0.5-0.9) 04/24/22 20:13 GFR Calculation Not Reportable 04/24/22 20:13 Glucose 152 mg/dL (65-115) H 04/24/22 20:13 POC Glucose 149 mg/dL (70-110) H 04/24/22 20:10 Calculated Osmolality 290 mOsm/kg (285-295) 04/24/22 20:13 Lactic Acid 1.0 mmol/L (0.5-2.2) 04/24/22 20:13 Calcium 9.1 mg/dL (8.5-10.5) 04/24/22 20:13 Total Bilirubin 0.5 mg/dL (0.15-1.2) 04/24/22 20:13 AST 8 U/L (0-32) 04/24/22 20:13 ALT 6 U/L (0-33) 04/24/22 20:13 Alkaline Phosphatase 75 U/L (35-105) 04/24/22 20:13 C-Reactive Protein 130.9 mg/L (0.0-4.9) H 04/24/22 20:13 Total Protein 6.8 g/dL (6.6-8.7) 04/24/22 20:13 Albumin 2.8 g/dL (3.5-5.2) L 04/24/22 20: Globulin 4.0 g/dL (1.3-4.6) 04/24/22 20:13 Urine Color Yellow (Yellow) 04/24/22: Urine Appearance Cloudy (CLEAR) A 04/24/22: Urine pH 9 (5-7) H 04/24/22: Ur Specific [place] 1.010 (1.005-1.030) 04/24/22: Urine Protein 1+ (Negative) H 04/24/22: Urine Glucose (UA) Norm (Normal) 04/24/22: Urine Ketones Negative (Negative) 04/24/22: Urine Blood 2+ (Negative) H 04/24/22: Urine Nitrate Positive (Negative) H 04/24/22: Urine Bilirubin Neg (Negative) 04/24/22 Prot Sulfosalicylic Acd Negative (Negative) 04/24/22: Urine Urobilinogen Norm mg/dL (Negative) 04/24/22: Ur Leukocyte Esterase 2+ (Negative) H 04/24/22: Urine RBC Too numerous to cnt /hpf (0-2) H 04/24/22: Urine WBC Too numerous to cnt /hpf (0-5) H 04/24/22: Ur Squamous Epith Cells 0-4 /hpf (0-5) H 04/24/22: Amorphous Sediment Not Reportable 04/24/22 Urine Bacteria 3+ /hpf (NONE) H 04/24/22 Discharge Plan Discharge Patient Disposition: Placed in Observation Clinical Impression: Bacterial UTI, Delirium, Encephalopathy acute Coding Level of Care Code ED Mounter Automatic for g Fwd Exam Comprehensive
[2022-04-24 22:10] LABS: Bilirubin Urine Neg (Negative); Blood Urine 2+ (Negative); Glucose Urine UA Norm (Normal); Ketones Urine Negative (Negative); Leukocyte Esterase Urine 2+ (Negative); Nitrate Urine Positive (Negative); Protein Urine 1+ (Negative); Sulfosalicylic Acid Urine Negative (Negative); Urine Appearance Cloudy (CLEAR); Urine Color Yellow (Yellow); Urobilinogen Urine Norm (Negative); pH Urine 9 (5-7)
[2022-04-24 22:11] LABS: Add Urine Microscopic? YES; RBC Urine TOO NUMEROUS TO CNT /hpf (0-2)
[2022-04-24 22:12] LABS: Bacteria Urine 3+ /hpf; Squamous Epithelial Cell Urine 0-4 /hpf (0-5); WBC Urine TOO NUMEROUS TO CNT /hpf (0-5)
[2022-04-24 22:13] LABS: Add Urine Culture? No
--- NOTE | 2022-04-24 22:20 | P.HP_ITS ---
Providers/Chief Complaint Primary Care Provider: TWIN Ramirez Chief Complaint: left facial droop, LOC History of Present Illness Caden Gupta is a 81 year old female with history of recurrent UTIs, recent urine culture done on 04/14 showed ESBL Proteus mirabilis which was done by PCP, patient is back in ER with altered mental status she does have underlying dementia, care home resident, daughter is skeptical about taking her back to the care home with her active issues. Patient is a resident of care home stating that her symptoms started last 24 hours, she is describing generalized fatigue, weakness and knee pain, she is not endorsing dysuria, urinary frequency. She is not sure whether she spiked fever, she is not endorsing nausea, vomiting or diarrhea. Her PCP requested urine culture which came back positive for Proteus ESBL, her daughter is concerned that she will not do well at care home and requesting IV antibiotics in the hospital patient has received ceftriaxone and Zosyn 1 L normal saline bolus She is not septic She is awake and alert able to give me history Review of Systems Const: Reports: chills, fatigue and malaise; Denies: fever(s) Eyes: Denies: change in vision ENMT: Denies: throat pain Card: Denies: chest pain Resp: Denies: dyspnea GI: Denies: abdominal pain : Denies: flank pain Musc: Denies: neck pain Skin/Breast: Denies: rash Neuro: Denies: headache(s) Psych: Reports: sleeping more; Denies: anxiety Endo: Denies: polyuria Cain/Lymph: Denies: easy bruising All/Imm: Denies: urticaria Medications/Allergies Home Medications Medication Instructions Recorded Confirmed Last Taken Type ergocalciferol (vitamin D2) 1,250 1,250 mcg PO Q7D 09/10/19 04/24/22 09/09/19 History mcg (50,000 unit) capsule (Vitamin D2) levothyroxine 50 mcg tablet 50 mcg PO DAILY@0500 09/10/19 04/24/22 05/14/21 History pantoprazole 40 mg tablet,delayed 40 mg PO DAILY@0600 09/10/19 04/24/22 05/14/21 History release amlodipine 5 mg tablet 5 mg PO DAILY@0800 05/15/21 04/24/22 05/14/21 History escitalopram oxalate 10 mg tablet 10 mg PO DAILY@0800 05/15/21 04/24/22 05/14/21 History insulin glargine 100 unit/mL (3 50 unit SUBCUT DAILY 05/15/21 04/24/22 05/14/21 History mL) subcutaneous pen (Lantus Solostar U-100 Insulin) aspirin 81 mg chewable tablet 81 mg PO DAILY #30 tabs 05/19/21 04/24/22 Unknown Rx (Aspirin Childrens) atorvastatin 20 mg tablet 20 mg PO DAILY #30 tabs 05/19/21 04/24/22 Unknown Rx acetaminophen 325 mg tablet 650 mg PO Q6H PRN Pain 04/24/22 04/24/22 Unknown History aluminum-mag hydroxide-simethicone 30 ml PO Q4H PRN Heartburn 04/24/22 04/24/22 Unknown History 200 mg-200 mg-20 mg/5 mL oral susp amino acids-protein hydrolysate 15 30 ea PO DAILY 04/24/22 04/24/22 Unknown History gram-100 kcal/30 mL oral liquid pkt (Pro-Stat Sugar Free) bisacodyl 10 mg rectal suppository 10 mg SC DAILY PRN Constipation 04/24/22 04/24/22 Unknown History bisacodyl 5 mg tablet,delayed 5 mg PO DAILY PRN Constipation 04/24/22 04/24/22 Unknown History release calcium carbonate 500 mg calcium 500 mg PO DAILY 04/24/22 04/24/22 Unknown History (1,250 mg) tablet (Oyster Shell Calcium) dextrose 40 % oral gel (Glutose-15) 15 g PO Q15M PRN low BS 04/24/22 04/24/22 Unknown History diclofenac sodium 1 % topical gel 2 g topical BID 04/24/22 04/24/22 Unknown History docusate sodium 100 mg capsule 100 mg PO BID 04/24/22 04/24/22 Unknown History gabapentin 100 mg capsule 100 mg PO TID 04/24/22 04/24/22 Unknown History insulin aspart U-100 100 unit/mL See Rx Instructions .Route .COMPLEX 04/24/22 04/24/22 Unknown History (3 mL) subcutaneous pen (Novolog Flexpen U-100 Insulin aspart) loperamide 2 mg capsule 2 mg PO Q4H PRN Diarrhea 04/24/22 04/24/22 Unknown History magnesium hydroxide 400 mg/5 mL 30 ml PO DAILY PRN Constipation 04/24/22 04/24/22 Unknown History oral suspension (Milk of Magnesia) melatonin 3 mg tablet 3 mg PO BEDTIME 04/24/22 04/24/22 Unknown History multivitamin 1 tab PO DAILY 04/24/22 04/24/22 Unknown History risperidone 0.25 mg tablet 0.25 mg PO DAILY 04/24/22 04/24/22 Unknown History tramadol 50 mg tablet 50 mg PO Q6H PRN Pain 04/24/22 04/24/22 Unknown History Allergies Allergy/AdvReac Type Severity Reaction Status Date / Time No Known Allergies Allergy Verified 09/09/19 22:38 PFSH Acute PFSH: Medical History Acute UTI Altered mental status Chronic constipation Diabetes mellitus Dyslipidemia Elbow fracture, left Elevated troponin Hyperlipidemia Hypertension Type 2 diabetes mellitus Surgical History H/O lumpectomy H/O: hysterectomy Family History Denies family history of CAD (coronary artery disease) Clotting disorder Chronic kidney disease (CKD) Bleeding disorder Cancer Social History Smoking and tobacco status: never smoked Alcohol intake: never Household members: family Housing: House Vitals/I&O/Wt Last Vital Signs Temp 98.7 F 04/24/22 20:05 Pulse 65 04/24/22 20:16 Resp 17 04/24/22 20:16 BP 165/70 04/24/22 20:05 Pulse Ox 96 04/24/22 20:16 O2 Del Method 04/24/22 20:05 Weight last 48 hrs Weight 86.183 kg Physical Exam Narrative: Patient is laying supine Pleasant and cooperative Looks well-hydrated Abdomen soft No CVA tenderness Awake and alert Able to give me history Pleasant and cooperative No sign of cellulitis Lower extremity no edema Currently on room air Hemodynamically stable No audible stridor or wheezing S1, S2 Data 04/24/22 20:13 04/24/22 20:13 Micro: Microbiology 04/24/22 20:45 Blood Culture - Preliminary Blood SPECIMEN COLLECTED 04/24/22 20:13 Blood Culture - Preliminary Blood SPECIMEN COLLECTED A&P Assessment and plan (1) Bacterial UTI: (2) Delirium: (3) Encephalopathy acute: Plan Acute delirium with underlying dementia Metabolic encephalopathy related to UTI No signs of sepsis Positive for ESBL Proteus I will start her on Zosyn continue IV fluids Opioids along bowel regimen Patient is full code retirement resident PT evaluation in the morning Anticipating discharge within 48 hours back to care home She is not septic DVT prophylaxis on board Hyperglycemia, check A1c level Attestations Medical Necessity Statement*: Less than 2 midnights anticipated Time Spent in Patient Care: 40 Coding Level of Care Code Acute Collector for Humbleg Fwd Diagnoses Bacterial UTI N39.0; A49.9 Delirium R41.0 Encephalopathy acute G93.40
[2022-04-24] MEDS: piperacillin-tazobactam 4.5 GM in sodium chloride 0.9% (plus) 50 ML IV (22:45)
[2022-04-25] VITALS (7 sets, daily range): BP systolic 119–176; BP diastolic 55–70; PULSE 56–83; RESP 15–18; TEMP 36.4–36.7; O2SAT 93–96
[2022-04-25 01:08] LABS: Estmated Average Glucose 111; Hemoglobin A1C 5.5 % (4.0-6.0)
[2022-04-25] MEDS: sodium chloride 0.9% 1,000 ML 75 ML IV (03:23)
[2022-04-25] MEDS: piperacillin-tazobactam 3.375 GM in sodium chloride 0.9% (plus) 50 ML IV (05:30)
[2022-04-25 05:52] LABS: Basophils % 0.4 %; Eosinophils # 0.2 10^3/uL (0.0-0.8); Eosinophils % 2.5 %; Hematocrit 30.3 % (37.0-47.0); Hemoglobin 9.5 g/dL (11.5-15.3); Lymphocytes # 2.4 10^3/uL (0.8-4.8); Lymphocytes % 33.3 %; Mean Corpuscular HGB Conc 31.4 g/dL (30.0-36.0); Mean Corpuscular Hemoglobin 25.2 pg (28.0-34.0); Mean Corpuscular Volume 80.4 fl (81-99); Mean Platelet Volume 9.4 fL (7.4-10.4); Monocytes # 0.8 10^3/uL (0.2-0.9); Monocytes % 10.5 %; Neutrophils # 3.87 10^3/uL (1.8-7.7); Neutrophils % 52.8 %; Nucleated Red Blood Cells % 0 %; Platelet Count 258 10^3/cmm (130-400); Red Blood Count 3.77 10^6/uL (4.1-5.3); Red Cell Distribution Width 14.9 % (12.1-15.1); White Blood Count 7.3 10^3/uL (4.0-10.0)
[2022-04-25] MEDS: enoxaparin 40 mg/0.4 mL Syringe SUBCUT (06:04)
[2022-04-25 06:17] LABS: Anion Gap 10.8 (5-19); Blood Urea Nitrogen 21 mg/dL (8-23); C Reactive Protein 118.5 mg/L (0.0-4.9); Calcium 8.4 mg/dL (8.5-10.5); Carbon Dioxide 26 mmol/L (22-29); Chloride 106 mmol/L (98-107); Glucose 87 mg/dL (65-115); Magnesium 1.5 mg/dL (1.7-2.3); Osmolality Calculated 290 mOsm/kg (285-295); Potassium 3.8 mmol/L (3.5-5.1); Sodium 139 mmol/L (136-145)
[2022-04-25 06:35] LABS: Glucose Point of Care 88 mg/dL (70-110)
[2022-04-25] MEDS: aspirin 81 mg Chew Tablet PO (08:08)
[2022-04-25] MEDS: escitalopram 10 mg Tablet PO (08:09)
[2022-04-25] MEDS: amlodipine 5 mg Tablet PO (08:09)
[2022-04-25] MEDS: risperiDONE 0.25 mg Tablet PO (08:09)
[2022-04-25] MEDS: sennosides-docusate Tablet 1 TAB PO (08:09)
[2022-04-25] MEDS: acetaminophen 325 mg Tablet 650 MG PO ×2 (08:09→19:42)
[2022-04-25] MEDS: insulin glargine 100 units/1 mL 50 UNIT SUBCUT (08:10)
[2022-04-25] MEDS: magnesium sulfate premix 2 GM/50 ML PIGGYBACK IV (09:56)
[2022-04-25 11:06] LABS: Glucose Point of Care 107 mg/dL (70-110)
--- NOTE | 2022-04-25 11:44 | PC.CHAP ---
Pastoral Care Encounter/Spiritual Assessment Type of Contact [] Declined media specialist visit [] Patient/Family/Request visit [] Outpatient visit [] Follow-up visit [] Physician referral [] Code/Alert [x] Routine visit [] Staff referral [] Actively dying [x] Patient sleeping [] Family support [] [] Out of room [] Palliative care [] [] Receiving care in room [] Pre-surgical visit [] Trauma [] Long length of stay [] ICU visit [] Other: Relational/Emotional Strength [] Patient feels connected with others/family/visitors/staff [] Distress [] Loneliness/isolation [] Abandonment Spirituality of Patient [] Person of Winnie [] Attends Episcopalian of their Winnie [] Believes in Prayer [] Reads Bible or Protestant materials [] There are Spiritual issues to be addressed Brake Machine Operator Interventions [] Prayer [] Active listening [] Non-anxious presence [] Spiritual/emotional support [] Crisis/trauma care [] Spiritual counseling [] Bereavement support [] Provided bereavement packet [] Provided Bible/devotional materials [] Provided toy/stuffed animal, coloring book to patient or family member [] Provided Communion [] Anointing/[place] [] Salvation [] Completed spiritual assessment [] Other: Impact on Illness or Injury [] Angry [] Fearful [] Anxious [] Often cries [] Exhaustion [] Unable to work [] Unable to attend jainism [] Unable to walk/stand [] Unable to read [] Unable to drive [] Unable to eat/drink [] Unable to sleep [] Unable to be with family [] Patient intubated [] Other: Summary Time spent with patient
[2022-04-25] MEDS: meropenem 1,000 MG in sodium chloride 0.9% (plus) 50 ML 100 MG IV ×2 (16:03→23:41)
--- NOTE | 2022-04-25 16:05 | PM.PN ---
Subjective Subjective: She is having breakfast. She states she has been bothered by pain in her left knee. Per report from family she had recent fall, with finding of pelvic fracture. Vitals/I&O/Wt Last Vital Signs Temp 98.0 F 04/25/22 15:36 Pulse 62 04/25/22 15:36 Resp 17 04/25/22 15:36 BP 119/62 04/25/22 15:36 Pulse Ox 94 04/25/22 15:36 O2 Del Method 04/25/22 15:36 04/25/22 04/25/22 04/25/22 06:59 14:59 22:59 Intake Total 50 / 1100 650 / 650 Balance 50 / 1100 650 / 650 Weight last 48 hrs Weight 86.183 kg Physical Exam Const: COMMON NORMALS: alert GENERAL APPEARANCE: cooperative and frail appearing ORIENTATION/CONSCIOUSNESS: Yes awake OTHER: Delayed movements and responses. HENMT: COMMON NORMALS: oropharynx normal Neck/C-Spine: COMMON NORMALS: no JVD Resp: COMMON NORMALS: normal respiratory effort and clear to auscultation bilaterally AUSCULTATION: clear to auscultation bilaterally Cardio: COMMON NORMALS: no JVD, regular rhythm, S1 normal heart sound present, S2 normal heart sound present and No murmurs present (Cardio) RHYTHM: regular rhythm HEART SOUNDS: S1 normal heart sound present and S2 normal heart sound present GI: COMMON NORMALS: Normal to inspection, nondistended, normoactive bowel sounds present, Soft to palpation and non-tender PALPATION: Yes Soft to palpation Extremity: COMMON NORMALS: no joint enlargement and no pedal edema OTHER: Pain, swelling, warmth to touch left knee. No erythema. Pain on PROM. Neuro: COMMON NORMALS: moves all extremities SENSORIUM/ORIENTATION: Yes alert Skin: COMMON NORMALS: no rashes or lesions noted GENERAL SKIN EXAM: no rashes or lesions noted Urinary Catheter Management: German: Cath Placed During This Visit: yes Reason for Continuing Indwelling Catheter: Acute Urinary Retention or Obstruction Urinary Catheter Date of Insertion: 04/24/22 Urinary Catheter Time of Insertion: 22:00 Data 04/25/22 05:44 04/25/22 05:44 Micro: Microbiology 04/24/22 20:45 Blood Culture - Preliminary Blood SPECIMEN COLLECTED 04/24/22 20:13 Blood Culture - Preliminary Blood SPECIMEN COLLECTED A&P Assessment and plan (1) Bacterial UTI: Complicated UTI with ESBL MDRO. Change antibiotic to meropenem. Discussed with daughter with procedure. Sensitive to ertapenem, will be able to complete antibiotic course with ertapenem IM but will need home health. Antibiotic arrangement prior to discharge, possibly tomorrow. Decrease IV fluid rate. Oral intake as tolerating. (2) Knee pain: Tender, swollen, warm to touch left knee with pain on ROM. Assessed by MRI. (3) Delirium: Likely secondary to UTI superimposed on Lewy body dementia. Supportive care. She currently appears awake, alert, calm and cooperative. (4) Encephalopathy acute: Metabolic encephalopathy secondary to UTI with underlying Lewy body dementia. As above. (5) Hypomagnesemia: Replace. Recheck level. Plan Lewy body dementia: consider establishing with neurologist. Was previously seeing a neurologist in [place] before moving down here. Pelvic fractures after recent fall. Hyperglycemia: A1c 5.5. Attestations Medical Necessity Statement*: Continue hospitalization for assessment of management of complicated UTI, generalized weakness, assessment of painful swollen warm to touch left knee. Coding Level of Care Code Acute Newspaper Reporter for Rey Leach Diagnoses Bacterial UTI N39.0; A49.9 Knee pain M25.569 Delirium R41.0 Encephalopathy acute G93.40 Hypomagnesemia E83.42
[2022-04-25 16:58] LABS: Glucose Point of Care 106 mg/dL (70-110)
[2022-04-25] MEDS: sodium chloride 0.9% 1,000 ML 30 ML IV (19:46)
[2022-04-25 21:39] LABS: Glucose Point of Care 125 mg/dL (70-110)
[2022-04-26] VITALS (7 sets, daily range): BP systolic 152–180; BP diastolic 68–82; PULSE 60–80; RESP 13–20; TEMP 36.7–37.1; O2SAT 93–96
[2022-04-26] MEDS: pantoprazole DR 40 mg Tablet PO (05:12)
[2022-04-26] MEDS: levothyroxine 50 mcg Tablet PO (05:12)
[2022-04-26 05:42] LABS: Basophils % 0.5 %; Eosinophils # 0.2 10^3/uL (0.0-0.8); Eosinophils % 3.6 %; Hematocrit 31.3 % (37.0-47.0); Hemoglobin 9.7 g/dL (11.5-15.3); Lymphocytes # 1.9 10^3/uL (0.8-4.8); Lymphocytes % 30.4 %; Mean Corpuscular Volume 80.7 fl (81-99); Mean Platelet Volume 9.9 fL (7.4-10.4); Monocytes # 0.6 10^3/uL (0.2-0.9); Monocytes % 9.3 %; Neutrophils # 3.52 10^3/uL (1.8-7.7); Neutrophils % 55.6 %; Nucleated Red Blood Cells % 0 %; Platelet Count 273 10^3/cmm (130-400); Red Blood Count 3.88 10^6/uL (4.1-5.3); Red Cell Distribution Width 14.6 % (12.1-15.1); White Blood Count 6.3 10^3/uL (4.0-10.0)
[2022-04-26 05:58] LABS: Alanine Aminotransferase < 5 U/L (0-33); Albumin Level 2.2 g/dL (3.5-5.2); Alkaline Phosphatase 69 U/L (35-105); Anion Gap 12.8 (5-19); Aspartate Amino Transferase 11 U/L (0-32); Blood Urea Nitrogen 16 mg/dL (8-23); Calcium 8.4 mg/dL (8.5-10.5); Carbon Dioxide 23 mmol/L (22-29); Chloride 104 mmol/L (98-107); Globulin 3.6 g/dL (1.3-4.6); Glucose 110 mg/dL (65-115); Magnesium 1.8 mg/dL (1.7-2.3); Osmolality Calculated 284 mOsm/kg (285-295); Potassium 3.8 mmol/L (3.5-5.1); Sodium 136 mmol/L (136-145); Total Bilirubin 0.4 mg/dL (0.15-1.2); Total Protein 5.8 g/dL (6.6-8.7)
[2022-04-26] MEDS: morphine 4 mg/mL SDV 1 mL 2 MG IVP (06:22)
[2022-04-26 07:23] LABS: Glucose Point of Care 108 mg/dL (70-110)
[2022-04-26] MEDS: acetaminophen 325 mg Tablet 650 MG PO (08:50)
[2022-04-26] MEDS: sennosides-docusate Tablet 1 TAB PO (08:51)
[2022-04-26] MEDS: risperiDONE 0.25 mg Tablet PO (08:51)
[2022-04-26] MEDS: amlodipine 5 mg Tablet PO (08:51)
[2022-04-26] MEDS: meropenem 1,000 MG in sodium chloride 0.9% (plus) 50 ML 100 MG IV ×3 (08:51→23:32)
[2022-04-26] MEDS: aspirin 81 mg Chew Tablet PO (08:51)
[2022-04-26] MEDS: insulin glargine 100 units/1 mL 50 UNIT SUBCUT (08:51)
[2022-04-26] MEDS: escitalopram 10 mg Tablet PO (08:51)
--- NOTE | 2022-04-26 09:00 | MR_ITS ---
WS: [id number] MRI LEFT KNEE WITHOUT AND WITH GADOLINIUM ENHANCEMENT. TECHNIQUE: Axial PD, coronal PD fat sat, coronal PD, sagittal PD, and sagittal PD fat-sat images obta ined. CLINICAL INFORMATION: pain, swelling, warmth, painful ROM COMPARISON: None. FINDINGS: Images degraded by patient motion. Distal quadriceps and patella tendons are intact. Small suprapatellar effusion. Mild diffuse synovial thickening and enhancement involving the suprapatellar bursa compatible with synovitis. This is most likely inflammatory/degenerative but can be seen with autoimmune and less likely infectious synoviti s. No evidence of osteomyelitis. Lobulated popliteal cyst measuring 4.4 x 1.9 cm.Diffuse thinning ACL with mucoid degeneration. ACL appears grossly intact. PCL appears intact. Mild diffuse soft tissue edema. Moderate to advanced tricompartmental arthritis. Moderate chondromala nikita patella. Small amount of subchondral edema. Hypertrophic patella. Edema in the popliteal fossae about the popliteal cyst. Normal medial and lateral collateral ligament s. Normal popliteus. Peripheral extrusion of the medial and lateral meniscus. Small amount of degener ative edema involving the lateral tibial plateau. [id number] articulation in the medial and lateral joint compartments. Hypertrophic spurring along the joint line. Complex tear involving the posterior horn medial meniscus extending to the articular surface. Additi onal complex tear involving the anterior horn lateral meniscus with blunting of the anterior horn. Sm all loose body in the posterior joint compartment measuring 9 mm. No evidence of osteomyelitis. No evidence of drainable fluid collection or abscess. MR/MR knee LT wo/w con [id number] IMPRESSION: 1. Small suprapatellar effusion with lobulated popliteal cyst. Mild thickening with diffuse enhancement of the suprapatellar bursa compatible with synovitis. This is commonly seen with inflammatory or arthritic synovitis. Infectious syn ovitis is less likely. No significant bone marrow edema. Recommend correlation with clinical symptoms. 2. No evidence of osteomyelitis. 3. Mild soft tissue edema about the knee. No drainable abscess or fluid collec tion. 4. LEFT popliteal cyst measuring 4.4 x 1.9 cm. 5. 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 6. Advanced thoracolumbar arthritis. 7. Meniscal tears described above with advanced joint space narrowing in the m edial and lateral joint compartments. 8. Moderate chondromalacia patella. Outbridge grading: grade IV: full-thickness cartilage loss with underlying bone reactive changes
--- NOTE | 2022-04-26 10:21 | PC.CHAP ---
Pastoral Care Encounter/Spiritual Assessment Type of Contact [] Declined tinning machine set up operator visit [] Patient/Family/Request visit [] Outpatient visit [] Follow-up visit [] Physician referral [] Code/Alert []x Routine visit [] Staff referral [] Actively dying [] Patient sleeping [] Family support [] [] Out of room [] Palliative care [] [] Receiving care in room [] Pre-surgical visit [] Trauma [] Long length of stay [] ICU visit [] Other: Relational/Emotional Strength [x] Patient feels connected with others/family/visitors/staff [] Distress [] Loneliness/isolation [] Abandonment Spirituality of Patient [] Person of Winnie [] Attends Hinduism of their Winnie []x Believes in Prayer [] Reads Bible or Mu-Ism materials [] There are Spiritual issues to be addressed Director Post Interventions [x] Prayer [x] Active listening [] Non-anxious presence [] Spiritual/emotional support [] Crisis/trauma care [] Spiritual counseling [] Bereavement support [] Provided bereavement packet [] Provided Bible/devotional materials [] Provided toy/stuffed animal, coloring book to patient or family member [] Provided Communion [] Anointing/[place] [] Salvation [x Impact on Illness or Injury [] Angry [] Fearful [] Anxious [] Often cries [] Exhaustion [] Unable to work [] Unable to attend gnosticism [] Unable to walk/stand [] Unable to read [] Unable to drive [] Unable to eat/drink [] Unable to sleep [] Unable to be with family [] Patient intubated [] Other: Summary Time spent with patient 5 min
[2022-04-26 11:56] LABS: Glucose Point of Care 122 mg/dL (70-110)
--- NOTE | 2022-04-26 15:16 | PM.PN ---
Subjective Subjective: This morning she is much more confused, thinks she is in a chair when she is in the bed, is rather irritable. Vitals/I&O/Wt Last Vital Signs Temp 98.1 F 04/26/22 11:24 Pulse 60 04/26/22 11:24 Resp 16 04/26/22 11:24 BP 152/68 04/26/22 11:24 Pulse Ox 95 04/26/22 11:24 O2 Del Method 04/26/22 11:24 04/26/22 04/26/22 04/26/22 06:59 14:59 22:59 Intake Total 200 / 2140 290 / 290 Output Total 1400 / 1400 Balance 200 / 1440 -1110 / -1110 Weight last 48 hrs Weight 86.183 kg Physical Exam Const: COMMON NORMALS: alert GENERAL APPEARANCE: cooperative and frail appearing ORIENTATION/CONSCIOUSNESS: Yes awake and Yes confused OTHER: Delayed movements and responses. HENMT: COMMON NORMALS: oropharynx normal Neck/C-Spine: COMMON NORMALS: no JVD Resp: COMMON NORMALS: normal respiratory effort and clear to auscultation bilaterally AUSCULTATION: clear to auscultation bilaterally Cardio: COMMON NORMALS: no JVD, regular rhythm, S1 normal heart sound present, S2 normal heart sound present and No murmurs present (Cardio) RHYTHM: regular rhythm HEART SOUNDS: S1 normal heart sound present and S2 normal heart sound present GI: COMMON NORMALS: Normal to inspection, nondistended, normoactive bowel sounds present, Soft to palpation and non-tender PALPATION: Yes Soft to palpation Extremity: COMMON NORMALS: no joint enlargement and no pedal edema OTHER: Pain, swelling, warmth to touch left knee. No erythema. Pain on PROM. Neuro: COMMON NORMALS: moves all extremities SENSORIUM/ORIENTATION: Yes alert Psych: ATTITUDE: Yes Guarded attititude/behavior present and Yes Other attitude/behavior findings present (Psych) MOOD & AFFECT: Yes irritable Skin: COMMON NORMALS: no rashes or lesions noted GENERAL SKIN EXAM: no rashes or lesions noted Urinary Catheter Management: German: Cath Placed During This Visit: yes Reason for Continuing Indwelling Catheter: Acute Urinary Retention or Obstruction Urinary Catheter Date of Insertion: 04/24/22 Urinary Catheter Time of Insertion: 22:00 Data 04/26/22 05:13 04/26/22 05:13 Micro: Microbiology 04/24/22 21:29 Urine Culture - Preliminary Urine Catheterized Gram Negative Rods 04/24/22 20:45 Blood Culture - Preliminary Blood NEGATIVE TO DATE 04/24/22 20:13 Blood Culture - Preliminary Blood NEGATIVE TO DATE A&P Assessment and plan (1) Encephalopathy acute: Worsening acute encephalopathy this morning, more confused, irritable, not very cooperative. Secondary to UTI metabolic encephalopathy with delirium, with underlying Lewy body dementia. Continue treatment of UTI. Provide supportive care. Her wound was open, she did well with feeding. Reorient. Continue risperidone. (2) Bacterial UTI: Complicated UTI with ESBL MDRO. Continue meropenem. Complete course with intramuscular ertapenem 1 g daily for 10 days after discharge. Decrease IV fluid rate. Oral intake as tolerating. (3) Knee pain: Tender, swollen, warm to touch left knee with pain on ROM. MRI with small suprapatellar effusion with loculated popliteal cyst. Mild thickening with diffuse enhancement of suprapatellar bursa compatible with synovitis, commonly seen with inflammatory arthritic synovitis, infectious versus less likely. This appears to fit also with her clinical picture otherwise with no fever, no leukocytosis. No joint erythema. Will resume diclofenac. Will need outpatient follow-up. Resume tramadol. Baseline nonambulatory (4) Delirium: Likely secondary to UTI superimposed on Lewy body dementia. As above. (5) Hypomagnesemia: Magnesium 1.8. Additional replacement, recheck level. Plan Lewy body dementia: consider establishing with neurologist. Was previously seeing a neurologist in [place] before moving down here. Pelvic fractures after recent fall. Hyperglycemia: A1c 5.5. Chronic pressure ulcer: Reposition frequently. Oral intake as tolerating, add nutritional supplements. Attestations Medical Necessity Statement*: Continue admission for assessment management of acute encephalopathy with delirium, complicated UTI. Coding Level of Care Code Acute French Tutor for [facility] Fwd Diagnoses Encephalopathy acute G93.40 Bacterial UTI N39.0; A49.9 Knee pain M25.569 Delirium R41.0 Hypomagnesemia E83.42
[2022-04-26 17:11] LABS: Glucose Point of Care 89 mg/dL (70-110)
[2022-04-26] MEDS: TRAMadol 50 mg Tablet PO (19:51)
[2022-04-26] MEDS: diclofenac 1% Topical Gel 100 gm 2 APPLIC TOPICAL (19:53)
[2022-04-26 20:55] LABS: Glucose Point of Care 89 mg/dL (70-110)
[2022-04-27] VITALS: BP 181/78; PULSE 72; RESP 22; TEMP 36.7; O2SAT 94
[2022-04-27 04:00] VITALS: BP 144/72; PULSE 64; RESP 16; TEMP 36.7; O2SAT 92
[2022-04-27] MEDS: levothyroxine 50 mcg Tablet PO (05:26)
[2022-04-27] MEDS: pantoprazole DR 40 mg Tablet PO (05:26)
[2022-04-27] MEDS: sodium chloride 0.9% 1,000 ML 30 ML IV (05:29)
[2022-04-27 05:46] LABS: Basophils % 0.4 %; Eosinophils # 0.3 10^3/uL (0.0-0.8); Eosinophils % 5.3 %; Hematocrit 30.6 % (37.0-47.0); Hemoglobin 9.2 g/dL (11.5-15.3); Lymphocytes # 1.8 10^3/uL (0.8-4.8); Lymphocytes % 35.2 %; Mean Corpuscular HGB Conc 30.1 g/dL (30.0-36.0); Mean Corpuscular Hemoglobin 24.8 pg (28.0-34.0); Mean Corpuscular Volume 82.5 fl (81-99); Mean Platelet Volume 9.5 fL (7.4-10.4); Monocytes # 0.6 10^3/uL (0.2-0.9); Monocytes % 11.2 %; Neutrophils # 2.41 10^3/uL (1.8-7.7); Neutrophils % 47.5 %; Nucleated Red Blood Cells % 0 %; Platelet Count 263 10^3/cmm (130-400); Red Blood Count 3.71 10^6/uL (4.1-5.3); Red Cell Distribution Width 14.7 % (12.1-15.1); White Blood Count 5.1 10^3/uL (4.0-10.0)
[2022-04-27 06:08] LABS: Alanine Aminotransferase < 5 U/L (0-33); Albumin Level 2.1 g/dL (3.5-5.2); Alkaline Phosphatase 60 U/L (35-105); Anion Gap 10.8 (5-19); Aspartate Amino Transferase 10 U/L (0-32); Blood Urea Nitrogen 14 mg/dL (8-23); Calcium 8.5 mg/dL (8.5-10.5); Carbon Dioxide 25 mmol/L (22-29); Chloride 107 mmol/L (98-107); Globulin 3.3 g/dL (1.3-4.6); Glucose 61 mg/dL (65-115); Magnesium 1.9 mg/dL (1.7-2.3); Osmolality Calculated 286 mOsm/kg (285-295); Potassium 3.8 mmol/L (3.5-5.1); Sodium 139 mmol/L (136-145); Total Bilirubin 0.3 mg/dL (0.15-1.2); Total Protein 5.4 g/dL (6.6-8.7)
[2022-04-27] MEDS: enoxaparin 40 mg/0.4 mL Syringe SUBCUT (06:08)
[2022-04-27 06:19] LABS: Glucose Point of Care 66 mg/dL (70-110)
--- NOTE | 2022-04-27 06:42 | PC.NURSE ---
ACCUCHECK Accucheck reading this am was 66. Drank orange juice well and recheck of BS was 86
[2022-04-27 06:45] LABS: Glucose Point of Care 86 mg/dL (70-110)
[2022-04-27 07:53] VITALS: BP 168/75; PULSE 59; RESP 18; TEMP 36.6; O2SAT 94
[2022-04-27 08:21] VITALS: PULSE 54; RESP 18; O2SAT 92
[2022-04-27] MEDS: diclofenac 1% Topical Gel 100 gm 2 APPLIC TOPICAL (08:28)
[2022-04-27] MEDS: meropenem 1,000 MG in sodium chloride 0.9% (plus) 50 ML 100 MG IV (08:29)
[2022-04-27] MEDS: risperiDONE 0.25 mg Tablet PO (08:29)
[2022-04-27] MEDS: escitalopram 10 mg Tablet PO (08:29)
[2022-04-27] MEDS: sennosides-docusate Tablet 1 TAB PO (08:29)
[2022-04-27] MEDS: aspirin 81 mg Chew Tablet PO (08:29)
[2022-04-27] MEDS: insulin glargine 100 units/1 mL 50 UNIT SUBCUT (08:29)
[2022-04-27] MEDS: amlodipine 5 mg Tablet PO (08:29)
[2022-04-27 08:39] LABS: Glucose Point of Care 87 mg/dL (70-110)
[2022-04-27 11:13] VITALS: BP 166/75; PULSE 64; RESP 18; TEMP 36.7; O2SAT 95
[2022-04-27 11:48] LABS: Glucose Point of Care 94 mg/dL (70-110)
--- NOTE | 2022-04-27 11:57 | P.DS_ITS ---
Discharge Providers Date of Admission: 04/25/22 15:40 Date of Discharge: April 27, 2022 Attending Provider at Admission: Bethany Allison MD Attending Provider at Discharge: Jasmeet Hansen Primary Care Provider: TWIN Ramirez Diagnoses at Discharge Discharge Diagnosis (1) Encephalopathy acute: Status: Acute (2) Bacterial UTI: Status: Acute (3) Knee pain: Status: Acute (4) Delirium: Status: Acute (5) Hypomagnesemia: Status: Acute Reason for Visit Reason for Visit: left facial droop, LOC Hospital Course Hospital Course Pleasant 81-year-old lady with Lewy body dementia, DM2, HTN, HLD, recent fall and pelvic fracture living in assisted living facility was referred for treatment due to finding of UTI with ESBL MDRO Proteus mirabilis with decline in mental status from her baseline, initially consideration of possible facial droop but without finding of focal deficits indicating CVA on admission. He was treated with meropenem while in the hospital. Confirmed organism sensitive to ertapenem, and so will finish course at home with ertapenem IM 1 g daily for additional 9 days after first dose in the hospital. Hospitalization complicated by acute encephalopathy and delirium due to urinary tract infection, also superimposed on chronic dementia, possible contribution of hospitalization self with unfamiliar surroundings. Was very restless, confused overnight last night and yesterday morning, with continued gradual improvement currently. Today noted blood glucose down to 61, improved with juice, insulin Lantus dose decreased to 30 units, please reassess glucose, de-escalate long-acting insulin gradually 3-5 units/day in case of glucose increasing above 150. In case of further hypoglycemia withhold Lantus. On admission also noted to have pain and swelling of both knees, somewhat worse on the left side with warmth, painful ROM. No redness. Has remained afebrile, without leukocytosis. MRI of left knee with small suprapatellar effusion with lobulated popliteal cyst. Mild thickening with diffuse enhancement of suprapatellar bursa compatible with cellulitis. This is commonly seen with inflammatory or arthritic cellulitis. Infectious colitis is less likely. No significant bone marrow edema. This would fit in with her clinical presentation. Infectious etiology was considered, but found to be less likely. Still for now would avoid steroid injection until more information is available. Due to persistent symptoms she is resumed on topical diclofenac, given brief course of ibuprofen. Additional work-up was requested with RF, anti-CCP, uric acid. Please follow-up. She is asked to follow-up with rheumatology. Please reassess renal function. Avoid long-term NSAIDs if possible. Additional incidental findings on MR: 2. No evidence of osteomyelitis. 3. Mild soft tissue edema about the knee. No drainable abscess or fluid collection. 4. LEFT popliteal cyst measuring 4.4 x 1.9 cm. 5. 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 6. Advanced thoracolumbar arthritis. 7. Meniscal tears described above with advanced joint space narrowing in the medial and lateral joint compartments. 8. Moderate chondromalacia patella. Outbridge grading: grade IV: full-thickness cartilage loss with underlying bone reactive changes She has moved here from [place] where she is to follow-up with neurology for LBD. Consider establishing with neurology locally. Continue arrangements for physical therapy. Fall prevention measures. Continue care of chronic pressure ulcer. Physical Exam Const: COMMON NORMALS: alert GENERAL APPEARANCE: cooperative ORIENTATION/CONSCIOUSNESS: Yes awake OTHER: Today she is calm, cooperative. Does not remember that he is in the hospital but agrees when reminded. HENMT: COMMON NORMALS: oropharynx normal Neck/C-Spine: COMMON NORMALS: no JVD Resp: COMMON NORMALS: normal respiratory effort and clear to auscultation bilaterally AUSCULTATION: clear to auscultation bilaterally Cardio: COMMON NORMALS: no JVD, regular rhythm, S1 normal heart sound present, S2 normal heart sound present and No murmurs present (Cardio) RHYTHM: regular rhythm HEART SOUNDS: S1 normal heart sound present and S2 normal heart sound present GI: COMMON NORMALS: Normal to inspection, nondistended, normoactive bowel sounds present, Soft to palpation and non-tender PALPATION: Yes Soft to palpation Extremity: COMMON NORMALS: no joint enlargement and no pedal edema OTHER: Both knees. To have some mild to moderate swelling, both equally warm to touch, no erythema. Painful ROM. Neuro: COMMON NORMALS: moves all extremities SENSORIUM/ORIENTATION: Yes alert Skin: COMMON NORMALS: no rashes or lesions noted GENERAL SKIN EXAM: no rashes or lesions noted Urinary Catheter Management: German: Cath Placed During This Visit: yes Reason for Continuing Indwelling Catheter: Acute Urinary Retention or Obstruction Urinary Catheter Date of Insertion: 04/24/22 Urinary Catheter Time of Insertion: 22:00 Discharge Data Studies Completed and Pending Completed Studies During Hospitalization Category Date Time Status CT head wo con* [id number] Stat Cat Scan 04/24/22 20:12 Completed XR chest 1V portable [id number] Stat Exams 04/24/22 20:12 Completed MR knee LT wo/w con [id number] Routine MRI 04/26/22 09:00 Completed Pending at discharge Category Date Time Status Blood Culture Stat Lab 04/24/22 20:45 Results CCP [Cyclic Citrullinated Peptide] Routine Lab 04/27/22 11:36 Ordered Complete Blood Count w/Auto AM LABS Lab 04/28/22 04:00 Ordered Comprehensive Metabolic Panel AM LABS Lab 04/28/22 04:00 Ordered RF [Rheumatoid Factor] Routine Lab 04/27/22 11:36 Ordered Uric Acid Routine Lab 04/27/22 05:18 Received Urine Culture Stat Lab 04/24/22 21:29 Results Radiology Impressions Chest X-Ray 04/24/22 20:12 IMPRESSION: 1. Hyperaerated lungs consistent with mild COPD . 2. Mild cardiomegaly. Head CT 04/24/22 20:12 IMPRESSION: 1. Mild right maxillary sinus disease. 2. Interval appearance of soft tissue swelling/hematoma over the left forehead. 3. No acute intracranial findings. Knee MRI 04/26/22 09:00 IMPRESSION: 1. Small suprapatellar effusion with lobulated popliteal cyst. Mild thickening with diffuse enhancement of the suprapatellar bursa compatible with synovitis. This is commonly seen with inflammatory or arthritic synovitis. Infectious synovitis is less likely. No significant bone marrow edema. Recommend correlation with clinical symptoms. 2. No evidence of osteomyelitis. 3. Mild soft tissue edema about the knee. No drainable abscess or fluid collection. 4. LEFT popliteal cyst measuring 4.4 x 1.9 cm. 5. 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 6. Advanced thoracolumbar arthritis. 7. Meniscal tears described above with advanced joint space narrowing in the medial and lateral joint compartments. 8. Moderate chondromalacia patella. Outbridge grading: grade IV: full-thickness cartilage loss with underlying bone reactive changes Laboratory Results WBC 5.1 10^3/uL (4.0-10.0) 04/27/22 05:18 RBC 3.71 10^6/uL (4.1-5.3) L 04/27/22 05:18 Hgb 9.2 g/dL (11.5-15.3) L 04/27/22 05:18 Hct 30.6 % (37.0-47.0) L 04/27/22 05:18 MCV 82.5 fl (81-99) 04/27/22 05:18 MCH 24.8 pg (28.0-34.0) L 04/27/22 05:18 MCHC 30.1 g/dL (30.0-36.0) 04/27/22 05:18 RDW 14.7 % (12.1-15.1) 04/27/22 05:18 Plt Count 263 10^3/cmm (130-400) 04/27/22 05:18 MPV 9.5 fL (7.4-10.4) 04/27/22 05:18 Neut % (Auto) 47.5 % 04/27/22 05:18 Lymph % (Auto) 35.2 % 04/27/22 05:18 Whiteside % (Auto) 11.2 % 04/27/22 05:18 Eos % (Auto) 5.3 % 04/27/22 05:18 Baso % (Auto) 0.4 % 04/27/22 05:18 Neut # (Auto) 2.41 10^3/uL (1.8-7.7) 04/27/22 05:18 Lymph # (Auto) 1.8 10^3/uL (0.8-4.8) 04/27/22 05:18 Whiteside # (Auto) 0.6 10^3/uL (0.2-0.9) 04/27/22 05:18 Eos # (Auto) 0.3 10^3/uL (0.0-0.8) 04/27/22 05:18 Baso # (Auto) 0.0 10^3/uL (0.0-0.1) 04/27/22 05:18 Nucleated RBC % (auto) 0 % 04/27/22 05:18 Nucleated RBCs # 0.0 /100WBC 04/27/22 05:18 Sodium 139 mmol/L (136-145) 04/27/22 05:18 Potassium 3.8 mmol/L (3.5-5.1) 04/27/22 05:18 Chloride 107 mmol/L (98-107) 04/27/22 05:18 Carbon Dioxide 25 mmol/L (22-29) 04/27/22 05:18 Anion Gap 10.8 (5-19) 04/27/22 05:18 BUN 14 mg/dL (8-23) 04/27/22 05:18 Creatinine 0.6 mg/dL (0.5-0.9) 04/27/22 05:18 GFR Calculation Not Reportable 04/27/22 05:18 Glucose 61 mg/dL (65-115) L 04/27/22 05:18 POC Glucose 94 mg/dL (70-110) 04/27/22 11:11 Estimat Average Glucose 111 04/24/22 20:13 Hemoglobin A1c 5.5 % (4.0-6.0) 04/24/22 20:13 Calculated Osmolality 286 mOsm/kg (285-295) 04/27/22 05:18 Lactic Acid 1.0 mmol/L (0.5-2.2) 04/24/22 20:13 Calcium 8.5 mg/dL (8.5-10.5) 04/27/22 05:18 Magnesium 1.9 mg/dL (1.7-2.3) 04/27/22 05:18 Total Bilirubin 0.3 mg/dL (0.15-1.2) 04/27/22 05:18 AST 10 U/L (0-32) 04/27/22 05:18 ALT < 5 U/L (0-33) 04/27/22 05:18 Alkaline Phosphatase 60 U/L (35-105) 04/27/22 05:18 C-Reactive Protein 118.5 mg/L (0.0-4.9) H 04/25/22 05:44 Total Protein 5.4 g/dL (6.6-8.7) L 04/27/22 05:18 Albumin 2.1 g/dL (3.5-5.2) L 04/27/22 05:18 Globulin 3.3 g/dL (1.3-4.6) 04/27/22 05:18 Procalcitonin 0.10 ng/mL (0-0.5) 04/24/22 20:13 Urine Color Yellow (Yellow) 04/24/22 21: Urine Appearance Cloudy (CLEAR) A 04/24/22 21: Urine pH 9 (5-7) H 04/24/22 21: Ur Specific [place] 1.010 (1.005-1.030) 04/24/22 21: Urine Protein 1+ (Negative) H 04/24/22 21: Urine Glucose (UA) Norm (Normal) 04/24/22: Urine Ketones Negative (Negative) 04/24/22: Urine Blood 2+ (Negative) H 04/24/22: Urine Nitrate Positive (Negative) H 04/24/22 21: Urine Bilirubin Neg (Negative) 04/24/22: Prot Sulfosalicylic Acd Negative (Negative) 04/24/22: Urine Urobilinogen Norm mg/dL (Negative) 04/24/22 21: Ur Leukocyte Esterase 2+ (Negative) H 04/24/22 21: Urine RBC Too numerous to cnt /hpf (0-2) H 04/24/22 21: Urine WBC Too numerous to cnt /hpf (0-5) H 04/24/22 21: Ur Squamous Epith Cells 0-4 /hpf (0-5) H 04/24/22 21: Amorphous Sediment Not Reportable 04/24/22 21: Urine Bacteria 3+ /hpf (NONE) H 04/24/22 21: Vitals Last Vital Signs Temp 98.0 F 04/27/22 11:13 Pulse 64 04/27/22 11:13 Resp 18 04/27/22 11:13 BP 166/75 04/27/22 11:13 Pulse Ox 95 04/27/22 11:13 O2 Del Method 04/27/22 11:13 Discharge Plan Discharge Patient Disposition: Home Condition: Stable Prescriptions: New ertapenem 1 gram recon soln 1 g IM DAILY 9 Days Qty: 9 0RF ibuprofen 600 mg tablet 600 mg PO TID 7 Days Qty: 21 0RF Continued levothyroxine 50 mcg Tablet 50 mcg PO DAILY@0500 pantoprazole 40 mg Tablet,Delayed Release (Dr/Ec) 40 mg PO DAILY@0600 ergocalciferol (vitamin D2) [Vitamin D2] 1,250 mcg (50,000 unit) Capsule 1,250 mcg PO Q7D Rx Instructions: On Sundays escitalopram oxalate 10 mg Tablet 10 mg PO DAILY@0800 amlodipine 5 mg tablet 5 mg PO DAILY@0800 aspirin [Aspirin Childrens] 81 mg tablet,chewable 81 mg PO DAILY Qty: 30 0RF atorvastatin 20 mg tablet 20 mg PO DAILY Qty: 30 0RF multivitamin Tablet 1 tab PO DAILY acetaminophen 325 mg Tablet 650 mg PO Q6H PRN (Reason: Pain) loperamide 2 mg Capsule 2 mg PO Q4H PRN (Reason: Diarrhea) Rx Instructions: administer after each loose stool until symptoms controlled; do not exceed 8 mg per 24 hrs Glutose-15 40 % Gel 15 g PO Q15M PRN (Reason: low BS) Rx Instructions: for blood sugar 50 MG/DL or lower risperidone 0.25 mg Tablet 0.25 mg PO DAILY melatonin 3 mg Tablet 3 mg PO BEDTIME tramadol 50 mg Tablet 50 mg PO Q6H PRN (Reason: Pain) Milk of Magnesia 400 mg/5 mL Suspension 30 ml PO DAILY PRN (Reason: Constipation) Oyster Shell Calcium 500 mg calcium (1,250 mg) Tablet 500 mg PO DAILY bisacodyl 10 mg Suppository 10 mg WI DAILY PRN (Reason: Constipation) docusate sodium 100 mg Capsule 100 mg PO BID bisacodyl 5 mg Tablet,Delayed Release (Dr/Ec) 5 mg PO DAILY PRN (Reason: Constipation) gabapentin 100 mg Capsule 100 mg PO TID Mylanta 200-200-20 mg/5 mL Suspension 30 ml PO Q4H PRN (Reason: Heartburn) Rx Instructions: administer between meals Novolog Flexpen U-100 Insulin 100 unit/mL (3 mL) Insulin Pen See Rx Instructions .ROUTE .COMPLEX Rx Instructions: per sliding scale diclofenac sodium 1 % Gel 2 g TOPICAL BID Rx Instructions: apply to single elbow, wrist or hand; for hand includes palm/fingers/back of hand Pro-Stat Sugar Free 15 gram- 100 kcal/30 mL Liquid In Packet 30 ea PO DAILY Changed insulin glargine [Lantus Solostar U-100 Insulin] 100 unit/mL (3 mL) insulin pen 30 unit SUBCUT DAILY Qty: 15 0RF Discharge Orders: Discharge Order (Routine); Ordered 04/27/22 Ordered By: Jasmeet Hansen Referrals: [facility] [Other] Rheumatology [Provider Group] - 2 weeks (BL knee pain, synovitis) Miguel,TWIN Nick [Primary Care Provider] - None Primary, provider [Other] - 4-7 days Discharge Diet: Diabetic Discharge Activity: Increase activity as tolerated and As per PT/OT instructions Patient Instructions: Ertapenem (By injection), Dementia (GEN), Extended Spectrum Beta-Lactamase (GEN), Fall Prevention (GEN), Opioid Safety Activity Restrictions/Additional Instructions: Complete antibiotic course for ESBL Proteus urinary tract infection with ertapenem IM 1 g daily for additional 9 days. Noted episode of low blood glucose in the hospital, down to 61, improved with orange juice, insulin Lantus dose currently decreased to 30 units. Please follow-up blood glucose 3 times daily. Increase Lantus dose slowly in case glucose rising above 150 by up to 3-5 units/day. Withhold Lantus in case of further hypoglycemia. Follow-up regarding arthritis, synovitis suprapatellar bursa. Infection related cellulitis was on differential diagnosis but less likely given lack of other features of infection, lack of leukocytosis, fever, however, would avoid steroid injections in the area if possible. Follow-up with orthopedics for reasses sment. Continue diclofenac gel, short course of ibuprofen but would avoid long- term NSAIDs due to her age, risk of kidney injury. Having knee pain bilaterally, with bilateral swelling, suspect similar changes on the right side as well. Requested also RF, anti-CCP, uric acid. Refer to rheumatology. Continue arrangements for physical therapy. Continue to evaluate need for escalation of care. Recheck magnesium at next visit, received replacement in the hospital. Consider establishing with neurologist in the area for Lewy body dementia. Continue care of chronic pressure ulcer. Discharge Attestations Time Spent in Discharge Care*: greater than 30 min Quality Metrics Clinical Quality Measures [ No reported AMI, CVA or VTE this stay] Coding Level of Care Code Acute Chg FW DC note Diagnoses Encephalopathy acute G93.40 Bacterial UTI N39.0; A49.9 Knee pain M25.569 Delirium R41.0 Hypomagnesemia E83.42
[2022-04-27 12:28] LABS: Uric Acid 4.7 mg/dL (2.4-5.7)
[2022-04-27] MEDS: ertapenem 1,000 mg SDV 1000 MG IM (13:01)
[2022-04-27] MEDS: lidocaine 1% INJ 20 mL MDV (mL) INJECTION (13:02)
[2022-04-27 14:36] LABS: Glucose Point of Care 172 mg/dL (70-110)
[2022-04-27] MEDS: acetaminophen 325 mg Tablet 650 MG PO (14:36)
[2022-04-27 14:55] VITALS: BP 166/75; PULSE 64; RESP 18; TEMP 36.7; O2SAT 95
== END 2022-04-27 14:55 | disposition home or self-care (01) | DRG 689 ==
LOC: ER 22:21 → MEDSURG 22:43
PROVIDERS: Admitting Provider Internal Medicine; Emergency Provider Emergency Medicine; PCP Nurse Practitioner Family; Visit Provider Internal Medicine
DX: N39.0 Urinary tract infection, site not specified (principal); G93.41 Metabolic encephalopathy; Z16.12 Extended spectrum beta lactamase (ESBL) resistance; F05 Delirium due to known physiological condition; L03.116 Cellulitis of left lower limb; B96.4 Proteus (mirabilis) (morganii) as the cause of diseases classified elsewhere; G31.83 Neurocognitive disorder with Lewy bodies; F02.80 Dementia in other diseases classified elsewhere, unspecified severity, without behavioral disturbance, psychotic disturbance, mood disturbance, and anxiety; E11.65 Type 2 diabetes mellitus with hyperglycemia; E83.42 Hypomagnesemia; R53.1 Weakness; M71.22 Synovial cyst of popliteal space [Baker], left knee; L89.151 Pressure ulcer of sacral region, stage 1; S32.9XXD Fracture of unspecified parts of lumbosacral spine and pelvis, subsequent encounter for fracture with routine healing; W19.XXXD Unspecified fall, subsequent encounter; E78.5 Hyperlipidemia, unspecified; I10 Essential (primary) hypertension; Z79.4 Long term (current) use of insulin
CPT/HCPCS: 36415; 36416; 51701; 51702; 70450; 71045; 73723; 80048; 80053; 81001; 82962; 83036; 83605; 83735; 84145; 84550; 85025; 86140; 87040; 87077; 87086; 87186; 96365; 96367; 96372; 99285; A9577; G0378; J0696; J1335; J1650; J1815; J2185; J2270; J2543; J3475; J7030

== ENCOUNTER 2022-05-07 19:44 | Emergency (ER) | payer MEDICARE, SELFPAY ==
[2022-05-07 19:50] VITALS: BMI 25.0
[2022-05-07 19:59] VITALS: BP 168/54; PULSE 55; RESP 16; TEMP 36.8; O2SAT 97
--- NOTE | 2022-05-07 20:13 | ED_ITS ---
HPI - General Adult General: Chief complaint: General Medical Stated complaint: hip pain Time Seen by Provider: 05/07/22 19:49 Source: patient History of Present Illness: 81-year-old female with a history of Lewy body dementia. She complains of left posterior hip and sacral pain. She says that she has a bedsore there, and it is hurting her. No trauma. No fever. No vomiting. At times she seems as if she is fine and not in pain, but then she cries out in pain at times as well. Onset (ago): hour(s) Location: buttocks, left and lower extremity Radiation: non-radiation Severity: moderate Quality: other Pain Consistency: intermittent Relieving factors: none Exacerbating factors: none Associated symptoms: Reports confusion; Deny chest pain, cough, dyspnea, fevers/chills, headache(s) or vomiting Review of Systems General: Reports: ROS unobtainable due to mental status Const: Denies: fever(s) Card: Denies: chest pain Resp: Denies: dyspnea GI: Denies: vomiting Neuro: Reports: confusion; Denies: headache(s) PFSH ED PFSH: Medical History Acute UTI Altered mental status Chronic constipation Diabetes mellitus Dyslipidemia Elbow fracture, left Elevated troponin Hyperlipidemia Hypertension Type 2 diabetes mellitus Surgical History H/O lumpectomy H/O: hysterectomy Family History Denies family history of CAD (coronary artery disease) Clotting disorder Chronic kidney disease (CKD) Bleeding disorder Cancer Social History Smoking and tobacco status: never smoked Alcohol intake: never Household members: family Housing: House Physical Exam Const: COMMON NORMALS: no acute distress GENERAL APPEARANCE: cooperative and frail appearing HENMT: COMMON NORMALS: normocephalic, atraumatic and Normal external nose present HEAD & SCALP: normocephalic and atraumatic NOSE: Normal external nose present Eye: COMMON NORMALS: Equal, round and reactive pupils present and EOMs intact bilaterally PUPIL: Yes Equal, round and reactive pupils present Neck/C-Spine: GENERAL: Yes trachea midline Chest: CHEST: Yes Symmetrical chest wall rise Resp: COMMON NORMALS: normal respiratory effort, No use of accessory muscles and clear to auscultation bilaterally AUSCULTATION: clear to auscultation bilaterally Cardio: COMMON NORMALS: regular rate and regular rhythm RATE: regular rate RHYTHM: regular rhythm GI: COMMON NORMALS: Soft to palpation and non-tender PALPATION: Yes Soft to palpation Back/Pelvis: OTHER: Exam the sacrum reveals sacral skin irritation without any significant breakdown at the top of the gluteal crease. There is no induration or fluctuance. She is tender in this area. Neuro: WINTER COMA SCALE: document GCS findings Strawn coma scale eye opening: Spontaneous Winter coma scale verbal response: Orientated (To situation not to time) Strawn coma scale motor response: Obey commands Strawn coma scale total score: 15 Psych: COMMON NORMALS: cooperative Course Vital Signs: Vital signs: Vital Signs Temperature 98.2 F 05/07/22 19:59 Pulse Rate 55 L 05/07/22 19:59 Respiratory Rate 19 H 05/07/22 21:40 Blood Pressure 168/54 05/07/22 19:59 Pulse Oximetry 97 05/07/22 21:40 Oxygen Delivery Me thod 05/07/22 19:59 MDM - General Adult Medical Decision Making X-rays reveal hip arthritis bilaterally as well as sacroiliac joint osteoarthritis. Her white count is 7. She is afebrile. Hemoglobin is 11. She is dry, BUN is 47 creatinine is 1.4 which is above her baseline. CRP is elevated at 38, but was much higher last week. Urinalysis is completely negative at this point. Patient's pain is improved after Percocet here. She will be allowed to go back on intermittent pain medication we will ask case management to see if they can refer to pain management for potential injection for pain control. Lab Data 05/07/22 21:10 05/07/22 21:10 Radiology Impressions Pelvis X-Ray 05/07/22 20:15 IMPRESSION: 1. [id number] osteoarthritis of the hips bilaterally. 2. Lumbar spine degenerative changes somewhat visualized. Sacrum and Coccyx X-Ray 05/07/22 20:15 IMPRESSION: 1. 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 2. Lumbar spine degenerative disc space disease somewhat visualized. Laboratory Results WBC 7.1 10^3/uL (4.0-10.0) 05/07/22 21:10 RBC 4.44 10^6/uL (4.1-5.3) 05/07/22 21:10 Hgb 11.0 g/dL (11.5-15.3) L 05/07/22 21:10 Hct 36.8 % (37.0-47.0) L 05/07/22 21:10 MCV 82.9 fl (81-99) 05/07/22 21:10 MCH 24.8 pg (28.0-34.0) L 05/07/22 21:10 MCHC 29.9 g/dL (30.0-36.0) L 05/07/22 21:10 RDW 15.9 % (12.1-15.1) H 05/07/22 21:10 Plt Count 263 10^3/cmm (130-400) 05/07/22 21:10 MPV 10.3 fL (7.4-10.4) 05/07/22 21:10 Neut % (Auto) 45.2 % 05/07/22 21:10 Lymph % (Auto) 43.8 % 05/07/22 21:10 [place] % (Auto) 6.9 % 05/07/22 21:10 Eos % (Auto) 3.5 % 05/07/22 21:10 Baso % (Auto) 0.3 % 05/07/22 21:10 Neut # (Auto) 3.21 10^3/uL (1.8-7.7) 05/07/22 21:10 Lymph # (Auto) 3.1 10^3/uL (0.8-4.8) 05/07/22 21:10 [place] # (Auto) 0.5 10^3/uL (0.2-0.9) 05/07/22 21:10 Eos # (Auto) 0.3 10^3/uL (0.0-0.8) 05/07/22 21:10 Baso # (Auto) 0.0 10^3/uL (0.0-0.1) 05/07/22 21:10 Nucleated RBC % (auto) 0 % 05/07/22 21:10 Nucleated RBCs # 0.0 /100WBC 05/07/22 21:10 Sodium 141 mmol/L (136-145) 05/07/22 21:10 Potassium 4.5 mmol/L (3.5-5.1) 05/07/22 21:10 Chloride 105 mmol/L (98-107) 05/07/22 21:10 Carbon Dioxide 25 mmol/L (22-29) 05/07/22 21:10 Anion Gap 15.5 (5-19) 05/07/22 21:10 BUN 47 mg/dL (8-23) H 05/07/22 21:10 Creatinine 1.4 mg/dL (0.5-0.9) H 05/07/22 21:10 GFR Calculation Not Reportable 05/07/22 21:10 Glucose 115 mg/dL (65-115) 05/07/22 21:10 Calculated Osmolality 305 mOsm/kg (285-295) H 05/07/22 21:10 Calcium 9.2 mg/dL (8.5-10.5) 05/07/22 21:10 Total Bilirubin 0.3 mg/dL (0.15-1.2) 05/07/22 21:10 AST 12 U/L (0-32) 05/07/22 21:10 ALT 8 U/L (0-33) 05/07/22 21:10 Alkaline Phosphatase 79 U/L (35-105) 05/07/22 21:10 C-Reactive Protein 38.1 mg/L (0.0-4.9) H 05/07/22 21:10 Total Protein 6.6 g/dL (6.6-8.7) 05/07/22 21:10 Albumin 3.1 g/dL (3.5-5.2) L 05/07/22 21:10 Globulin 3.5 g/dL (1.3-4.6) 05/07/22 21:10 Urine Color Yellow (Yellow) 05/07/22 21:48 Urine Appearance Clear (CLEAR) 05/07/22 21:48 Urine pH 5 (5-7) 05/07/22 21:48 Ur Specific [place] 1.015 (1.005-1.030) 05/07/22 21:48 Urine Protein Neg (Negative) 05/07/22 21:48 Urine Glucose (UA) Norm (Normal) 05/07/22 21:48 Urine Ketones Negative (Negative) 05/07/22 21:48 Urine Blood Neg (Negative) 05/07/22 21:48 Urine Nitrate Negative (Negative) 05/07/22 21:48 Urine Bilirubin Neg (Negative) 05/07/22 21:48 Urine Urobilinogen Neg mg/dL (Negative) 05/07/22 21:48 Ur Leukocyte Esterase Negative (Negative) 05/07/22 21:48 Discharge Plan Discharge Patient Disposition: Home Clinical Impression: Osteoarthritis of left hip Condition: Stable Prescriptions: New Percocet 5-325 mg tablet 1 tab PO Q8H PRN (Reason: pain) Qty: 14 0RF No Action levothyroxine 50 mcg Tablet 50 mcg PO DAILY@0500 pantoprazole 40 mg Tablet,Delayed Release (Dr/Ec) 40 mg PO DAILY@0600 ergocalciferol (vitamin D2) [Vitamin D2] 1,250 mcg (50,000 unit) Capsule 1,250 mcg PO Q7D Rx Instructions: On Sundays escitalopram oxalate 10 mg Tablet 10 mg PO DAILY@0800 amlodipine 5 mg tablet 5 mg PO DAILY@0800 aspirin [Aspirin Childrens] 81 mg tablet,chewable 81 mg PO DAILY Qty: 30 0RF atorvastatin 20 mg tablet 20 mg PO DAILY Qty: 30 0RF multivitamin Tablet 1 tab PO DAILY acetaminophen 325 mg Tablet 650 mg PO Q6H PRN (Reason: Pain) loperamide 2 mg Capsule 2 mg PO Q4H PRN (Reason: Diarrhea) Rx Instructions: administer after each loose stool until symptoms controlled; do not exceed 8 mg per 24 hrs Glutose-15 40 % Gel 15 g PO Q15M PRN (Reason: low BS) Rx Instructions: for blood sugar 50 MG/DL or lower risperidone 0.25 mg Tablet 0.25 mg PO DAILY melatonin 3 mg Tablet 3 mg PO BEDTIME tramadol 50 mg Tablet 50 mg PO Q6H PRN (Reason: Pain) Milk of Magnesia 400 mg/5 mL Suspension 30 ml PO DAILY PRN (Reason: Constipation) Oyster Shell Calcium 500 mg calcium (1,250 mg) Tablet 500 mg PO DAILY bisacodyl 10 mg Suppository 10 mg MA DAILY PRN (Reason: Constipation) docusate sodium 100 mg Capsule 100 mg PO BID bisacodyl 5 mg Tablet,Delayed Release (Dr/Ec) 5 mg PO DAILY PRN (Reason: Constipation) gabapentin 100 mg Capsule 100 mg PO TID alum-mag hydroxide-simeth 200-200-20 mg/5 mL Suspension 30 ml PO Q4H PRN (Reason: Heartburn) Rx Instructions: administer between meals Novolog Flexpen U-100 Insulin 100 unit/mL (3 mL) Insulin Pen See Rx Instructions .ROUTE .COMPLEX Rx Instructions: per sliding scale diclofenac sodium 1 % Gel 2 g TOPICAL BID Rx Instructions: apply to single elbow, wrist or hand; for hand includes palm/fingers/back of hand Pro-Stat Sugar Free 15 gram- 100 kcal/30 mL Liquid In Packet 30 ea PO DAILY Lantus Solostar U-100 Insulin 100 unit/mL (3 mL) insulin pen 30 unit SUBCUT DAILY Qty: 15 0RF Discharge Orders: Discharge ED (Routine); Ordered 05/07/22 Ordered By: Scottie Kearney Referrals: Park Rivera FNP [Referring] - Patient Instructions: Osteoarthritis (ED), Opioid Safety, Pain Management Activity Restrictions/Additional Instructions: We will ask case management to make a pain management referral to see if an injection may help this hip pain. Skin care to the sacral area with frequent turning. Pain medication for severe pain. Return for fever, worsening pain despite treatment, other concerning symptoms. Coding Level of Care Code ED [employer] for Rey Leach Exam Comprehensive
--- NOTE | 2022-05-07 20:15 | XRR_ITS ---
PROCEDURE INFORMATION: Exam: XR Pelvis Exam date and time: 05/07/2022 8:29 PM Age: 81 years old Clinical indication: Pelvic pain; Additional info: Left hip/sacral pain TECHNIQUE: Imaging protocol: Radiologic exam of the pelvis. Views: 1 or 2 view. COMPARISON: CT chest abd pel w con* 05/16/2021 11:52 AM FINDINGS: Bones/joints: Lumbar spine degenerative changes. Tpul-[id number] osteoarthritis of the hips bilaterally. Soft tissues: Unremarkable. XR/XR pelvis 1-2V* [id number] IMPRESSION: 1. Hutk-ai-bcabynyq osteoarthritis of the hips bilaterally. 2. Lumbar spine degenerative changes somewhat visualized.
--- NOTE | 2022-05-07 20:15 | XRR_ITS ---
PROCEDURE INFORMATION: Exam: XR Sacrum and Coccyx, 2 or More Views Exam date and time: 05/07/2022 8:31 PM Age: 81 years old Clinical indication: Pain in coccyx area; Additional info: Sacral pain TECHNIQUE: Imaging protocol: XR of the sacrum and coccyx, 2 or more views. COMPARISON: CR XR pelvis 1-2V* [id number] 05/07/2022 8:29 PM FINDINGS: Bones/joints: Lumbar spine degenerative disc space disease somewhat visualized. 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 Soft tissues: Normal. XR/XR sacrum coccyx min 2V [id number] IMPRESSION: 1. 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 2. Lumbar spine degenerative disc space disease somewhat visualized.
[2022-05-07 21:19] LABS: Basophils % 0.3 %; Eosinophils # 0.3 10^3/uL (0.0-0.8); Eosinophils % 3.5 %; Hematocrit 36.8 % (37.0-47.0); Lymphocytes # 3.1 10^3/uL (0.8-4.8); Lymphocytes % 43.8 %; Mean Corpuscular HGB Conc 29.9 g/dL (30.0-36.0); Mean Corpuscular Hemoglobin 24.8 pg (28.0-34.0); Mean Corpuscular Volume 82.9 fl (81-99); Mean Platelet Volume 10.3 fL (7.4-10.4); Monocytes # 0.5 10^3/uL (0.2-0.9); Monocytes % 6.9 %; Neutrophils # 3.21 10^3/uL (1.8-7.7); Neutrophils % 45.2 %; Nucleated Red Blood Cells % 0 %; Platelet Count 263 10^3/cmm (130-400); Red Blood Count 4.44 10^6/uL (4.1-5.3); Red Cell Distribution Width 15.9 % (12.1-15.1); White Blood Count 7.1 10^3/uL (4.0-10.0)
[2022-05-07 21:39] LABS: Alanine Aminotransferase 8 U/L (0-33); Albumin Level 3.1 g/dL (3.5-5.2); Alkaline Phosphatase 79 U/L (35-105); Anion Gap 15.5 (5-19); Aspartate Amino Transferase 12 U/L (0-32); Blood Urea Nitrogen 47 mg/dL (8-23); C Reactive Protein 38.1 mg/L (0.0-4.9); Calcium 9.2 mg/dL (8.5-10.5); Carbon Dioxide 25 mmol/L (22-29); Chloride 105 mmol/L (98-107); Globulin 3.5 g/dL (1.3-4.6); Glucose 115 mg/dL (65-115); Osmolality Calculated 305 mOsm/kg (285-295); Potassium 4.5 mmol/L (3.5-5.1); Sodium 141 mmol/L (136-145); Total Bilirubin 0.3 mg/dL (0.15-1.2); Total Protein 6.6 g/dL (6.6-8.7)
[2022-05-07 21:40] VITALS: RESP 19; O2SAT 97
[2022-05-07] MEDS: oxyCODONE-APAP 5-325 mg Tablet 1 TAB PO (21:40)
[2022-05-07 22:13] LABS: Add Urine Microscopic? NO; Charge for UA Resulting for Rev
[2022-05-07 22:35] LABS: Urine Color Yellow (Yellow)
[2022-05-07 22:36] LABS: Bilirubin Urine Neg (Negative); Blood Urine Neg (Negative); Glucose Urine UA Norm (Normal); Ketones Urine Negative (Negative); Leukocyte Esterase Urine Negative (Negative); Nitrate Urine Negative (Negative); Protein Urine Neg (Negative); Specific Gravity, Urine 1.015 (1.005-1.030); Urine Appearance Clear (CLEAR); Urobilinogen Urine Neg (Negative); pH Urine 5 (5-7)
[2022-05-07 23:53] VITALS: BP 141/58; PULSE 68; RESP 19; O2SAT 95
--- NOTE | 2022-05-09 10:05 | DCPLANNER ---
shop manager had message to schedule a follow up appointment for patient with pain management. shop manager can not refer patients to pain management, that referral has to come from patients primary care physician. shop manager called patients daughter and explained this to the daughter.
== END 2022-05-07 23:52 | disposition home or self-care (01) ==
PROVIDERS: Emergency Provider Emergency Medicine; PCP Family Medicine
DX: M16.0 Bilateral primary osteoarthritis of hip (principal)
CPT/HCPCS: 36415; 72170; 72220; 80053; 81003; 85025; 86140; 99284